=== PATIENT | female | born 1960 | race Caucasian/White ===

== ENCOUNTER 2017-10-17 12:13 | Observation (INO) | payer BC, OTHER ==
[~2017-10-17] VITALS: Ht 154.9 cm; Wt 64.8 kg
[~2017-10-17 12:13] MED LIST: ALBU1AER9 INH; ASPI81TA21 PO; ATOR-26 PO; COEN1CAP17 PO; IBUP-1105 PO; LISI-789 PO; METO25TA56 PO; MULT-506 PO; PRT/20 PO; SERT25TA PO; ST J300T2 PO
[2017-10-17] MEDS ORDERED: NITROGLYCERIN OINT 2% 1GM PACKET EXT STA (12:44)
--- NOTE | 2017-10-17 12:50 | EMERGENCY ROOM VISIT NOTE ---
History Report prepared by Mary: Leigh Butler Under the Supervision of: Dr. Bryn Haddad M.D. First contact with patient: 12:38 Chief Complaint: CHEST PAIN Stated Complaint: CHEST PAIN, NAUSEA Nursing Triage Summary: Pt presents with with c/o left sided chest pain into left shoulder, intermittent since 0300. SOB. Initially had lightheaded, nausea. Pt reports GA with stent placement x 1 ten years ago. Pt took NTG x 1 with relief, also took 324mg ASA. History of Present Illness The patient is a 56 year old female who presents to the Emergency Room with complaints of constant shortness of breath and chest pain beginning at 0300, about nine and a half hours ago. The pain radiates to the left shoulder. At its worst, the patient rates her pain as a 7/10. She took nitroglycerin with minimal relief. Presently, the patient reports some chest discomfort. The patient states her pain does not worsen with movement. She notes some nausea but denies any diaphoresis. The patient has a history of a heart attack. She states her pain does feel like the last time she had a a heart attack. The patient has stents in place. She reports she took an aspirin this morning. Source of History: patient Onset: 9 and a half hours ago Position: other (generalized) Symptom Intensity: 7/10 Quality: other (shortness of breath and chest pain) Timing: constant Associated Symptoms: + chest pain, + SOB, + nausea, No diaphoresis Review of Systems See HPI for pertinent positives & negatives. A total of 10 systems reviewed and were otherwise negative. Past Medical & Surgical Medical Problems: (1) Asthma (2) Cardiac catheterization (3) Coronary artery disease (4) Gastroesophageal reflux disease (5) Hyperlipidemia (6) Myocardial infarction (7) Stent in LAD Family History Heart disease High cholesterol Social History Smoking Status: Never Smoker Alcohol Use: none Drug Use: none Marital Status: Housing Status: lives with significant other Occupation Status: disabled Current/Historical Medications Scheduled Aspirin Enteric Coated (Ecotrin Or Generic), 81 MG PO DAILY Atorvastatin (Lipitor), 80 MG PO DAILY Coenzyme Q10 (Ubidecarenone) (Co Q 10), 100 MG PO DAILY Escitalopram Oxalate (Lexapro), 5 MG PO DAILY Lisinopril (Zestril), 2.5 MG PO DAILY Metoprolol Tartrate (Metoprolol Tartrate), 37.5 MG PO BID Multivitamin (Multivitamin), 1 TAB PO DAILY Pantoprazole Sodium (Protonix), 20 MG PO DAILY Katina's Wort ([place] Perf (St Mchugh Wort), 300 MG PO TID Scheduled PRN Albuterol Sulfate (Proair Respiclick), 1 PUFF INH Q4 PRN for SOB/Wheezing Ibuprofen (Ibuprofen), 400 MG PO Q6H PRN for Pain Allergies Coded Allergies: No Known Allergies (Verified , 10/17/17) Physical Exam Vital Signs Date Time Temp Pulse Resp B/P (MAP) Pulse Ox O2 Delivery O2 Flow Rate FiO2 10/17/17 15:14 55 16 122/59 99 Room Air 10/17/17 13:52 55 18 117/58 10/17/17 12:55 59 18 132/70 99 Room Air 10/17/17 12:47 59 10/17/17 12:18 36.7 69 18 159/82 99 Room Air Physical Exam GENERAL: Patient is in no acute distress. HEENT: No acute trauma, normocephalic atraumatic, mucous membranes moist, no nasal congestion, no scleral icterus. NECK: No stridor, no adenopathy, no meningismus, trachea is midline. LUNGS: Clear to auscultation bilaterally, no wheeze, no rhonchi, breath sounds equal. HEART: Without murmurs gallops or rubs, regular rate and rhythm. ABDOMEN: Soft, nontender, bowel sounds positive, no hernias, no peritonitis. CHEST: Nontender chest wall. EXTREMITIES: No cyanosis or edema, full range of motion of all the joints without pain or difficulty, no signs for acute trauma. NEUROLOGIC: Oriented x 3, no acute motor or sensory deficits, no focal weakness. SKIN: No rash, no jaundice, no diaphoresis. Medical Decision & Procedures ER Provider Diagnostic Interpretation: Radiology results as stated below per my review and radiologist interpretation: CHEST ONE VIEW PORTABLE FINDINGS: Lung volumes are normal. No pneumothorax or pleural effusion is noted. There is no consolidation or evidence of pulmonary edema. Cardiac size is within normal limits. The appearance of the chest is unchanged. IMPRESSION: No acute cardiopulmonary findings. Electronically signed by: Deric Hardwick M.D. Laboratory Results 10/17/17 12:57 10/17/17 12:40 Test 10/17/17 12:40 10/17/17 12:57 10/17/17 13:43 Anion Gap 8.0 mmol/L (3-11) Est Creatinine Clear Calc Drug Dose 74.1 ml/min Estimated GFR () 105.0 Estimated GFR (Non- 90.6 BUN/Creatinine Ratio 18.6 (10-20) Calcium Level 8.9 mg/dl (8.5-10.1) Total Bilirubin 0.4 mg/dl (0.2-1) Aspartate Amino Transf (AST/SGOT) 20 U/L (15-37) Alanine Aminotransferase (ALT/SGPT) 25 U/L (12-78) Alkaline Phosphatase 65 U/L (45-117) Troponin I < 0.015 ng/ml (0-0.045) Total Protein 7.0 gm/dl (6.4-8.2) Albumin 3.6 gm/dl (3.4-5.0) Globulin 3.4 gm/dl (2.5-4.0) Albumin/Globulin Ratio 1.0 (0.9-2) Red Blood Count 4.53 M/uL (4.2-5.4) Mean Corpuscular Volume 89.2 fL (80-100) Mean Corpuscular Hemoglobin 29.8 pg (25-34) Mean Corpuscular Hemoglobin Concent 33.4 g/dl (32-36) RDW Standard Deviation 44.9 fL (36.4-46.3) RDW Coefficient of Variation 13.7 % (11.5-14.5) Mean Platelet Volume 10.0 fL (7.4-10.4) Prothrombin Time 10.3 SECONDS (9.0-12.0) Prothromb Time International Ratio 1.0 (0.9-1.1) Activated Partial Thromboplast Time 26.6 SECONDS (21.0-31.0) Partial Thromboplastin Ratio 1.0 Laboratory results reviewed by me. Medications Administered Medications (Trade) Dose Ordered Sig/Maria A Route Start Time Stop Time Status Last Admin Dose Admin Nitroglycerin (Nitroglycerin 2% Oint) 1 inch NOW STAT EXT 10/17/17 12:44 10/17/17 12:46 DC 10/17/17 12:44 1 INCH ECG Indication: chest pain Rate (beats per minute): 63 Rhythm: normal sinus Findings: no acute ischemic change, no ectopy, other (old inferior infarct) Change: EKG interpreted by me. ED Course 1241: The patient was evaluated in room C4. A complete history and physical exam was performed. 1244: Ordered Nitroglycerin 1 inch EXT. 1409: I updated the patient on her test results. She is agreeable to the treatment plan. 1413: Discussed the patient's case with Dr. Lepe. The patient will be evaluated for further management. Medical Decision Differential diagnoses: angina, GA, pneumonia, pneumothorax, PE, aortic dissection, musculoskeletal pain. There is no leukocytosis or concerning anemia. No significant electrolyte abnormality or kidney failure. There is no hepatitis. EKG shows a normal sinus rhythm, no acute ischemia. Cardiac enzyme testing times one is not consistent with acute cardiac injury. Chest film does not show pneumonia, mediastinal widening or pneumothorax. The patient presents with left-sided chest pain, she has a cardiac history. She was given nitro paste, she is resting comfortably. No further aspirin given as she had taken some prior to arrival. The patient requires a further cardiac workup. I spoke with the patient and to case management. The on-call hospitalist was consulted. Medication Reconcilliation Current Medication List: was personally reviewed by me Blood Pressure Screening Patient's blood pressure: Elevated blood pressure Blood pressure disposition: Elevated BP felt to be situational Consults Time Called: 1410 Consulting Physician: Dr. Lepe Returned Call: 1413 Discussed the patient's case with Dr. Lepe. The patient will be evaluated for further management. Impression Primary Impression: Precordial chest pain Scribe Attestation The scribe's documentation has been prepared under my direction and personally reviewed by me in its entirety. I confirm that the note above accurately reflects all work, treatment, procedures, and medical decision making performed by me. Departure Information Dispostion Being Evaluated By Hospitalist Referrals RV. Peters MD (PCP) Patient Instructions [facility]
[2017-10-17 13:05] LABS: HEMATOCRIT 40.4 % (37-47); HEMOGLOBIN 13.5 g/dL (12.0-16.0); MEAN CELL VOLUME 89.2 fL (80-100); MEAN CORPUSCULAR HEMOGLOBIN 29.8 pg (25-34); MEAN CORPUSCULAR HGB CONC 33.4 g/dl (32-36); PLATELET COUNT 227 K/uL (130-400); RED CELL DISTRIBUTION WIDTH CV 13.7 % (11.5-14.5); RED CELL DISTRIBUTION WIDTH SD 44.9 fL (36.4-46.3); WHITE BLOOD COUNT 6.48 K/uL (4.8-10.8)
--- NOTE | 2017-10-17 13:10 | DIAGNOSTIC IMAGING REPORT ---
CHEST ONE VIEW PORTABLE CLINICAL HISTORY: Chest pain and nausea. COMPARISON STUDY: Chest radiograph February 10, 2016. FINDINGS: Lung volumes are normal. No pneumothorax or pleural effusion is noted. There is no consolidation or evidence of pulmonary edema. Cardiac size is within normal limits. The appearance of the chest is unchanged. IMPRESSION: No acute cardiopulmonary findings. Electronically signed by: Deric Hardwick M.D. 10/17/2017 1:09 PM Dictated Date/Time: 10/17/2017 1:08 PM
[2017-10-17 13:39] LABS: ALBUMIN 3.6 gm/dl (3.4-5.0); ALT/SGPT 25 U/L (12-78); AST/SGOT 20 U/L (15-37); BLOOD UREA NITROGEN 14 mg/dl (7-18); CALCIUM 8.9 mg/dl (8.5-10.1); CARBON DIOXIDE 24 mmol/L (21-32); CREATININE 0.74 mg/dl (0.60-1.20); GLUCOSE 93 mg/dl (70-99); POTASSIUM 4.4 mmol/L (3.5-5.1); SODIUM 138 mmol/L (136-145)
[2017-10-17 13:42] LABS: ALKALINE PHOSPHATASE 65 U/L (45-117)
[2017-10-17 14:10] LABS: PTT PATIENT 26.6 SECONDS (21.0-31.0)
[2017-10-17] MEDS ORDERED: ESCI1TAB6 PO (14:52)
[2017-10-17] MEDS ORDERED: ALBU18002 INH (14:52)
[2017-10-17] MEDS ORDERED: METO-720 PO (14:52)
[2017-10-17] MEDS ORDERED: ALBUTEROL HFA 8 GM INHALER INH PRN (15:15)
[2017-10-17] MEDS ORDERED: MoRPHine SULFATE 2 MG/ML CARP IV PRN (15:15)
[2017-10-17] MEDS ORDERED: NITROGLYCERIN 0.4 MG SL PER TAB CHARGE SL PRN (15:15)
[2017-10-17] MEDS ORDERED: MAGNESIUM HYDROXIDE SUSP 30 ML UDC PO PRN (15:15)
[2017-10-17] MEDS ORDERED: ALUMINUM/MAGNESIUM/SIMETH (MAALOX MAX) 30 ML UDC PO PRN (15:15)
[2017-10-17] MEDS ORDERED: ONDANSETRON INJ 2 MG/ML 2 ML VIAL IV PRN (15:15)
[2017-10-17] MEDS ORDERED: ACETAMINOPHEN 325 MG TAB PO PRN (15:15)
[2017-10-17] MEDS ORDERED: POLYETHYLENE (MIRALAX) 17 GM PACK PO PRN (15:15)
--- NOTE | 2017-10-17 15:31 | History and Physical ---
History & Physical Date & Time of Service: Oct 17, 2017 at 15:20 Chief Complaint: Chest Pain, Nausea Primary Care Physician: RV. Peters MD History of Present Illness Source: patient, family, clinic records, hospital records Patient is a pleasant 56 y/o female, with PMHx of CAD s/p WI w/ cardiac stenting in 2006, HTN, HLD, h/o v.fib arrest w/ past WI, asthma, anxiety, and GERD, who presented to the ED because of L-sided chest pain that woke her from her sleep at 0300. She described pain as a pressure/burring sensation. Associated nausea and SOB. Pain radiates to L arm and jaw region. She denies any alleviating/aggravating factors. She took a nitro with onset in symptoms with no relief. She was given Nitro paste in ED. She notes pain is still present but improved. Symptoms are similar to past presentation of WI. She follows w/ Dr. Crews. She notes a h/o of GERD. She takes Protonix PRN. She denies any acute worsening symptoms recently. She has never had an EGD before. Patient denies any fever, chills, sweats, lightheadedness, dizziness, vision changes, palpitations, edema, wheezing, cough, abdominal pain, vomiting, diarrhea, urinary symptoms, melena, numbness/tingling, weakness, muscle/joint pain, anxiety/depression, active bleeding, or new skin discoloration/changes. Past Medical/Surgical History Medical/Surgical history: CAD s/p [place] w/ cardiac stenting in 2006 HTN HLD h/o v.fib arrest w/ past WI asthma anxiety GERD s/p hernia repair Family History Heart disease High cholesterol Social History Smoking Status: Never Smoker Alcohol Use: none Drug Use: none Marital Status: Housing status: lives with family Occupational Status: disabled Immunizations History of Influenza Vaccine: No History of Tetanus Vaccine?: Yes Tetanus Immunization Date: Aug 15, 1997 History of Pneumococcal: Yes Pneumococcal Date: Aug 15, 1997 History of Hepatitis B Vaccine: Yes Hepatitis Immunization Date: Aug 15, 1997 Multi-Drug Resistant Organisms History of MDRO: No Allergies Coded Allergies: No Known Allergies (Verified , 10/17/17) Home Medications Scheduled Aspirin Enteric Coated (Ecotrin Or Generic), 81 MG PO DAILY Atorvastatin (Lipitor), 80 MG PO DAILY Coenzyme Q10 (Ubidecarenone) (Co Q 10), 100 MG PO DAILY Escitalopram Oxalate (Lexapro), 5 MG PO DAILY Lisinopril (Zestril), 2.5 MG PO DAILY Metoprolol Tartrate (Metoprolol Tartrate), 37.5 MG PO BID Multivitamin (Multivitamin), 1 TAB PO DAILY Pantoprazole Sodium (Protonix), 20 MG PO DAILY Katina's Wort ([place] Perf (St Mchugh Wort), 300 MG PO TID Scheduled PRN Albuterol Sulfate (Proair Respiclick), 1 PUFF INH Q4 PRN for SOB/Wheezing Ibuprofen (Ibuprofen), 400 MG PO Q6H PRN for Pain Physical Exam Vital Signs Date Time Temp Pulse Resp B/P (MAP) Pulse Ox O2 Delivery O2 Flow Rate FiO2 10/17/17 15:14 55 16 122/59 99 Room Air 10/17/17 13:52 55 18 117/58 10/17/17 12:55 59 18 132/70 99 Room Air 10/17/17 12:47 59 10/17/17 12:18 36.7 69 18 159/82 99 Room Air General Appearance: WD/WN, no apparent distress Head: normocephalic, atraumatic Eyes: normal inspection, PERRL ENT: hearing grossly normal Neck: supple Respiratory/Chest: lungs clear, normal breath sounds, no respiratory distress, no accessory muscle use Cardiovascular: regular rate, rhythm Abdomen/GI: normal bowel sounds, non tender, soft Back: normal inspection Extremities/Musculoskelatal: no calf tenderness, no pedal edema Neurologic/Psych: alert, normal mood/affect, oriented x 3 Skin: normal color, warm/dry, no rash Diagnostics Laboratory Results Results Past 24 Hours Test 10/17/17 12:40 10/17/17 12:57 10/17/17 13:43 Range/Units Sodium Level 138 136-145 mmol/L Potassium Level 4.4 3.5-5.1 mmol/L Chloride Level 106 98-107 mmol/L Carbon Dioxide Level 24 21-32 mmol/L Anion Gap 8.0 3-11 mmol/L Blood Urea Nitrogen 14 7-18 mg/dl Creatinine 0.74 0.60-1.20 mg/dl Est Creatinine Clear Calc Drug Dose 74.1 ml/min Estimated GFR () 105.0 Estimated GFR (Non- 90.6 BUN/Creatinine Ratio 18.6 10-20 Random Glucose 93 70-99 mg/dl Calcium Level 8.9 8.5-10.1 mg/dl Total Bilirubin 0.4 0.2-1 mg/dl Aspartate Amino Transf (AST/SGOT) 20 15-37 U/L Alanine Aminotransferase (ALT/SGPT) 25 12-78 U/L Alkaline Phosphatase 65 45-117 U/L Troponin I < 0.015 0-0.045 ng/ml Total Protein 7.0 6.4-8.2 gm/dl Albumin 3.6 3.4-5.0 gm/dl Globulin 3.4 2.5-4.0 gm/dl Albumin/Globulin Ratio 1.0 0.9-2 White Blood Count 6.48 4.8-10.8 K/uL Red Blood Count 4.53 4.2-5.4 M/uL Hemoglobin 13.5 12.0-16.0 g/dL Hematocrit 40.4 37-47 % Mean Corpuscular Volume 89.2 80-100 fL Mean Corpuscular Hemoglobin 29.8 25-34 pg Mean Corpuscular Hemoglobin Concent 33.4 32-36 g/dl RDW Standard Deviation 44.9 36.4-46.3 fL RDW Coefficient of Variation 13.7 11.5-14.5 % Platelet Count 227 130-400 K/uL Mean Platelet Volume 10.0 7.4-10.4 fL Prothrombin Time 10.3 9.0-12.0 SECONDS Prothromb Time International Ratio 1.0 0.9-1.1 Activated Partial Thromboplast Time 26.6 21.0-31.0 SECONDS Partial Thromboplastin Ratio 1.0 Diagnostic Radiology CHEST ONE VIEW PORTABLE CLINICAL HISTORY: Chest pain and nausea. COMPARISON STUDY: Chest radiograph February 10, 2016. FINDINGS: Lung volumes are normal. No pneumothorax or pleural effusion is noted. There is no consolidation or evidence of pulmonary edema. Cardiac size is within normal limits. The appearance of the chest is unchanged. IMPRESSION: No acute cardiopulmonary findings. Electronically signed by: Deric Hardwick M.D. 10/17/2017 1:09 PM Dictated Date/Time: 10/17/2017 1:08 PM The status of this report is Signed. Draft = Not yet reviewed or approved by Radiologist. Signed = Reviewed and approved by Radiologist. EKG PUJA CROWDER ID:[id number] 17-OCT-2017 12:24:07 [facility] Normal sinus rhythm Nonspecific ST abnormality Abnormal ECG When compared with ECG of 10-FEB-2016 05:20, No significant change was found Confirmed by Jesús Avery ([id number]) on 10/17/2017 2:13:22 PM 25mm/s 10mm/mV 150Hz 8.0 SP2 12SL 241 CAYLA: 0 Referred by: Confirmed By: Jesús Avery Vent. rate 63 BPM MO interval 166 ms QRS duration 84 ms QT/QTc 420/429 ms P-R-T axes 58 68 87 1960 (56 yr) Female 1lb Room:D8 Loc:15 Sewing Trimmer:HALEY NOBLE Test ind: Impression Assessment and Plan Patient is a pleasant 56 y/o female, with PMHx of CAD s/p WI w/ cardiac stenting in 2006, HTN, HLD, h/o v.fib arrest w/ past WI, asthma, anxiety, and GERD, who presented to the ED because of L-sided chest pain that woke her from her sleep at 0300. Chest pain- ACS r/o: - Admit to tele for cardiac monitoring - O2 protocol - Trend cardiac enzymes- initial enzymes negative - EKG w/out acute ischemic changes; follow QAM and PRN w/ chest pain - Nitro and IV Morphine PRN - NPO after midnight for stress ECHO in AM if cardiac markers negative - Consult cardiology, appreciate recommendations CAD s/p WI w/ cardiac stenting in 2006, HTN, HLD, h/o v.fib arrest w/ past WI- follows w/ Dr. Crews: - Continue ASA 81 mg daily, Lipitor 80 mg daily, Lisinopril 2.5 mg daily, Metoprolol 37.5 mg BID Anxiety: Continue Lexapro Asthma w/out acute exacerbation: Continue home inhalers GERD: Protonix daily DVT prophylaxis: Heparin SQ BID Code status: LEVEL I, FULL Dispo: From home, lives w/ - no discharge needs anticipated Level of Care Telemetry Resuscitation Status FULL RESUSCITATION VTE Prophylaxis VTE Risk Assessment Done? Y/N: Yes Risk Level: Moderate Given or contraindicated: Unfractionated heparin SQ, T.E.D. Stockings, SCD's Note Attending Admit Note & Attestation: Pt seen/examined, chart reviewed, care plan d/w STAR Harrison. I agree w/ the patel components of her documentation. 56yo female with CAD s/p WI w/ cardiac stenting in 2006, HTN, HLD, h/o v.fib arrest w/ past WI, asthma, anxiety, and GERD - last cardiac cath in 2016 showed patent LAD stent and patent [place] L Cx / RCA - presenting with chest pain and mild dyspnea. W/u thus far negative for ACS. By the time of my assessment chest pain was just about resolved. Symptoms similar to her initial WI event in 2006. No recent travel or illness. Denies GI symptoms. Denies pleuritic pain. PMH, PSH, allergies, meds, sochx, famhx, ros - reviewed VSS no fever gen - NAD neck - no JVD heart - RRR, s1, s2, no murmur lungs - CTA b/l abd - soft, NT chest - no reproducible chest wall pain ext - no edema, no assymetric calves labs - troponin neg EKG w/o ST changes cxr - no infiltrates A/P: Chest pain/dyspnea in 56yo female with h/o CAD. Pain now resolved s/p nitroglycerin in the ER. Tele, serial troponins, nitro SL prn, lipids in AM (had high LDL on last check in Jul 2017). NPO after MN in the event cardiology wishes to pursue testing tomorrow. Formal cardiology consult with Dr. Crews requested. Symptoms/history not suggestive of VTE, pericarditis, GERD, asthma, or CHF. Place on observation status. Nick Sumner MD
[2017-10-17] MEDS ORDERED: IV FLUIDS COMPLETED PRN (16:15)
[2017-10-17 16:32] VITALS: BP 111/66; PULSE 64; TEMP 36.4; O2SAT 95
[2017-10-17 16:46] VITALS: BP 111/66; PULSE 64; TEMP 36.4; O2SAT 95; Ht 154.9 cm; Wt 64.8 kg
--- NOTE | 2017-10-17 18:08 | Cardiology Consultation ---
Cardiology Consultation Date of Consultation: Oct 17, 2017. Requesting Physician: Burak Reason for Consultation: Chest Pain Pt evaluation today including: conversation w/ patient, physical exam, chart review, lab review, review of studies, review of inpatient medication list, conversation w/ attending History of Present Illness The patient is a 56-year-old woman with history of coronary artery disease having suffered a myocardial infarction in 2006. This morning at approximately 4 :00 a.m. she woke with symptoms chest burning. This involved left precordium as well as left arm and some of the left neck. She had some associated dyspnea. There is no pleuritic pain. There was some associated nausea but no associated diaphoresis. Patient felt the symptoms were similar to her myocardial infarction 2007 with the exception of no diaphoresis this time. The symptoms waxed and waned in severity over the course of several hours. The patient did take 1 single sublingual nitroglycerin at home as well as her usual cardiac medications was include a beta-rosa and an HARDEEP-inhibitor. Due to the persistent nature of her symptoms she eventually sought medical attention at [facility]. She states that her symptoms eventually resolved around noon today. Unclear if this was related to application of some nitroglycerin paste. Patient states that she has symptoms of this nature quite frequently. She states she often awakens with the symptoms perhaps 2-3 times per week. This been present now for several years. In general the symptoms resolve fairly rapidly and are not often associated with nausea. Patient also states that she has occasional episodes of chest pressure. The seem to occur when she is exercising more vigorously or at ascending hills on her walk. She generally rests and the symptoms resolved. This is not changed in character or severity in several years. At the time of this interview she claims to be feeling well. Her symptoms have resolved entirely. She no longer has nausea was able to tolerate her evening meal without chest or abdominal discomfort. Past Medical/Surgical History Coronary artery disease Myocardial infarction in 2006 resulting in stent to the LAD Repeat catheterization 2015 demonstrated patent LAD stent Cardiac arrest at the time of her initial [place] Ischemic cardiomyopathy Gastroesophageal reflux disease Hyperlipidemia Hypertension Depression Asthma Past surgical history Inguinal hernia peer Family History Heart disease High cholesterol Noncontributory given her current diagnosis of coronary artery disease Social History Smoking Status: Never Smoker History of Alcohol Use: No Previously employed in the [employer] industry in [facility] [place]. Now disabled after her myocardial infarction Review of Systems No recent constitutional symptoms such as fevers or chills. She does endorse symptoms of palpitations. These are fairly frequent most noticeable at nighttime. They are manifest primarily by a "pounding " in her chest. She generally does not have dizziness or lightheadedness. She has not suffered a syncopal episode. She denies any orthopnea or paroxysmal nocturnal dyspnea. She generally sleeps flat at night. She has not noticed any lower extremity edema. All Other Systems: Reviewed and Negative Allergies Coded Allergies: No Known Allergies (Verified , 10/17/17) Medications Current Inpatient Medications Medications (Trade) Dose Ordered Sig/Maria A Route Start Time Stop Time Status Last Admin Dose Admin Heparin Sodium (Porcine) (Heparin Sq 5000 Unit/0.5ml) 5,000 unit Q12 SQ 10/17/17 21:00 11/16/17 20:59 Acetaminophen (Tylenol Tab) 650 mg Q4H PRN PO 10/17/17 15:15 11/16/17 15:14 Al Hydrox/Mg Hydrox/Simethicone (Maalox Max Susp) 15 ml Q4H PRN PO 10/17/17 15:15 11/16/17 15:14 Magnesium Hydroxide (Milk Of Magnesia Susp) 30 ml Q12H PRN PO 10/17/17 15:15 11/16/17 15:14 Ondansetron HCl (Zofran Inj) 4 mg Q6H PRN IV 10/17/17 15:15 11/16/17 15:14 Nitroglycerin (Nitrostat Tab) 0.4 mg UD PRN SL 10/17/17 15:15 11/16/17 15:14 Morphine Sulfate (MoRPHine SULFATE INJ) 2 mg Q30M PRN IV 10/17/17 15:15 10/31/17 15:14 Polyethylene (Miralax Powder Packet) 17 gm DAILY PRN PO 10/17/17 15:15 11/16/17 15:14 Aspirin (Ecotrin Tab) 81 mg DAILY PO 10/18/17 09:00 11/17/17 08:59 Atorvastatin Calcium (Lipitor Tab) 80 mg DAILY PO 10/18/17 09:00 11/17/17 08:59 Escitalopram Oxalate (Lexapro Tab) 5 mg DAILY PO 10/18/17 09:00 3/1/18 08:59 Lisinopril (Zestril Tab) 2.5 mg DAILY PO 10/18/17 09:00 11/17/17 08:59 Albuterol (Ventolin Hfa Inhaler) 1 puffs Q4 PRN INH 10/17/17 15:15 11/16/17 15:14 Metoprolol Tartrate (Lopressor Tab) 37.5 mg BID PO 10/17/17 21:00 11/16/17 20:59 Pantoprazole Sodium (Protonix Tab) 40 mg QAM PO 10/18/17 09:00 11/17/17 08:59 Miscellaneous (Iv Fluids Completed) 1 ea PRN PRN N/A 10/17/17 16:15 10/17/18 16:14 Physical Exam Vital Signs Past 12 Hours Date Time Temp Pulse Resp B/P (MAP) Pulse Ox O2 Delivery O2 Flow Rate FiO2 10/17/17 16:46 36.4 64 18 111/66 95 Room Air 10/17/17 16:32 36.4 64 18 111/66 (81) 95 Room Air 10/17/17 15:14 55 16 122/59 99 Room Air 10/17/17 13:52 55 18 117/58 10/17/17 12:55 59 18 132/70 99 Room Air 10/17/17 12:47 59 10/17/17 12:18 36.7 69 18 159/82 99 Room Air She is alert and oriented x3. Mood affect appear normal. She answered all questions appropriately. HEENT: Sclerae are anicteric. Pupils are equal and reactive to light and accommodation. Extraocular movements were intact. Neuro: Cranial nerves intact Neck: Examination of the submandibular region did not reveal any significant lymphadenopathy. Carotids are palpable bilaterally and free of bruits on auscultation. There was no evidence of jugular venous distention. The thyroid was not enlarged. Lungs: Lungs are clear to auscultation bilaterally. There are no rales wheezes or rhonchi. She has normal respiratory effort without use of accessory muscles. There is normal pulmonary excursion. Cardiac: The rhythm was regular. S1 and S2 were normal. There are no murmurs on examination. The PMI was not markedly displaced on palpation. Abdomen: The abdomen was soft and nontender. Extremities: Patient has bilateral radial pulses that are equal in intensity. There is no evidence cyanosis or clubbing. There was no evidence of significant peripheral edema bilaterally. Skin: There are no rashes noted on examination today. Data Laboratory Results: Last 24 Hours Test 10/17/17 12:40 10/17/17 12:57 10/17/17 13:43 Sodium Level 138 mmol/L Potassium Level 4.4 mmol/L Chloride Level 106 mmol/L Carbon Dioxide Level 24 mmol/L Anion Gap 8.0 mmol/L Blood Urea Nitrogen 14 mg/dl Creatinine 0.74 mg/dl Est Creatinine Clear Calc Drug Dose 74.1 ml/min Estimated GFR () 105.0 Estimated GFR (Non- 90.6 BUN/Creatinine Ratio 18.6 Random Glucose 93 mg/dl Calcium Level 8.9 mg/dl Total Bilirubin 0.4 mg/dl Aspartate Amino Transf (AST/SGOT) 20 U/L Alanine Aminotransferase (ALT/SGPT) 25 U/L Alkaline Phosphatase 65 U/L Troponin I < 0.015 ng/ml Total Protein 7.0 gm/dl Albumin 3.6 gm/dl Globulin 3.4 gm/dl Albumin/Globulin Ratio 1.0 White Blood Count 6.48 K/uL Red Blood Count 4.53 M/uL Hemoglobin 13.5 g/dL Hematocrit 40.4 % Mean Corpuscular Volume 89.2 fL Mean Corpuscular Hemoglobin 29.8 pg Mean Corpuscular Hemoglobin Concent 33.4 g/dl RDW Standard Deviation 44.9 fL RDW Coefficient of Variation 13.7 % Platelet Count 227 K/uL Mean Platelet Volume 10.0 fL Prothrombin Time 10.3 SECONDS Prothromb Time International Ratio 1.0 Activated Partial Thromboplast Time 26.6 SECONDS Partial Thromboplastin Ratio 1.0 Imaging: Chest x-ray did not demonstrate any acute cardiopulmonary abnormality EKG: Normal sinus rhythm without ischemic changes or evidence of old myocardial infarction Telemetry reviewed: Normal sinus rhythm Echocardiogram performed 02/21/2015: Ejection fraction 45-50%. Apical anterior hypokinesis. [id number]-[id number] mitral regurgitation Cardiac catheterization performed 02/10/2016 response to would abnormal stress test: No evidence of significant disease with patent proximal LAD stent. Assessment & Plan 1. Chest pain: While the patient's symptoms remind her of her prior myocardial infarction, the fact that she has had a very extended course of chest discomfort without elevation in her cardiac biomarkers suggest this is not cardiac. She also has a normal EKG at the time of presentation. There is no objective evidence of myocardial ischemia despite prolonged symptoms. Her symptoms sound more classic for gastroesophageal reflux disease. However, she does take pantoprazole on daily basis. The symptoms are fairly longstanding in nature and today's episode was simply more prolonged and involved some nausea. Based on the absence of objective evidence of ischemia I do not think the current symptoms warrant any additional cardiac evaluation. 2. Exertional chest tightness: The patient did however endorse some symptoms of chest tightness with exertion. This would be more consistent with angina. However, the symptoms are longstanding in nature and not changed recently. Two thousand sixteen she underwent coronary angiography for similar symptoms and this did not demonstrate any evidence of obstructive disease. 3. Coronary artery disease: He is on aggressive regimen for secondary prevention to include daily aspirin, high-dose atorvastatin and beta blockade 4. Ischemic cardiomyopathy: She appears to be well compensated currently. More recent stress echocardiogram suggested near normal LV systolic function with an estimated ejection fraction of 50-55%. No evidence of pulmonary edema by exam or history. Chest x-ray was also normal. She will continue on her current regimen which includes a beta-rosa and HARDEEP-inhibitor. 5. Valvular heart disease: Patient was noted to have [id number] mitral regurgitation in 2015. [place] to be mild on the stress echocardiogram performed in 2016. This can be followed over time
[2017-10-17 20:00] VITALS: O2SAT 95
[2017-10-17 20:32] VITALS: BP 102/64; PULSE 60; TEMP 36.5; O2SAT 95
[2017-10-17] MEDS: METOPROLOL TARTRATE 25 MG TAB PO SCH (20:34)
[2017-10-17] MEDS: HEPARIN SOD 5000 UNIT/0.5 ML CARP SQ SCH (20:38)
[2017-10-17 21:21] LABS: CKMB 0.7 ng/ml (0.5-3.6)
[2017-10-17 22:40] VITALS: BP 91/49; PULSE 57; TEMP 36.5; O2SAT 95
[2017-10-18 03:55] VITALS: BP 107/65; PULSE 59; TEMP 36.5; O2SAT 95
[2017-10-18 05:17] LABS: CHOLESTEROL 193 mg/dl (0-200); CKMB 0.8 ng/ml (0.5-3.6); LDL CHOLESTEROL CALCULATED 124 mg/dl
[2017-10-18 08:19] VITALS: BP 131/85; PULSE 69; TEMP 36.7; O2SAT 97
[2017-10-18 08:22] VITALS: O2SAT 97
[2017-10-18] MEDS: METOPROLOL TARTRATE 25 MG TAB PO SCH (08:45)
[2017-10-18] MEDS: HEPARIN SOD 5000 UNIT/0.5 ML CARP SQ SCH (08:47)
[2017-10-18] MEDS ORDERED: ATORVASTATIN 40 MG TAB PO SCH (09:00)
[2017-10-18] MEDS ORDERED: ESCITALOPRAM OXALATE 10 MG TAB PO SCH (09:00)
[2017-10-18] MEDS ORDERED: PANTOprazole SOD 40 MG TAB PO SCH (09:00)
[2017-10-18] MEDS ORDERED: ASPIRIN 81 MG ECTAB PO SCH (09:00)
[2017-10-18] MEDS ORDERED: LISINOPRIL 2.5 MG TAB PO SCH (09:00)
[2017-10-18] MEDS ORDERED: PANT40TA2 PO (10:23)
--- NOTE | 2017-10-18 10:27 | Discharge Summary ---
Discharge Summary Date of Service Oct 18, 2017. Discharge Summary Admission Date: Oct 17, 2017 at 15:20 Discharge Date: Oct 18, 2017 Discharge Disposition: Home Principal Diagnosis: Chest pain-non cardiac Problems/Secondary Diagnoses: Asthma Coronary artery disease with stable angina, h/o LAD stent Gastroesophageal reflux disease Hyperlipidemia Chronic systolic CHF HTN H/o ventricular fibrillation arrest w/ past NC Anxiety disorder Mild-moderate mitral regurgitation Immunizations: Have You Had Influenza Vaccine: No History of Tetanus Vaccine?: Yes Tetanus Immunization Date: Aug 15, 1997 History of Pneumococcal: Yes Pneumococcal Date: Aug 15, 1997 History of Hepatitis B Vaccine: Yes Hepatitis Immunization Date: Aug 15, 1997 Procedures: Chest 1 view portable 10/17/17 FINDINGS: Lung volumes are normal. No pneumothorax or pleural effusion is noted. There is no consolidation or evidence of pulmonary edema. Cardiac size is within normal limits. The appearance of the chest is unchanged. IMPRESSION: No acute cardiopulmonary findings. Consultations: Cardiology Medication Reconciliation New Medications: Ranitidine HCl (Ranitidine HCl) 150 Mg Tab 150 MG PO HS for 30 Days, #30 TAB Changed Medications: Pantoprazole (Pantoprazole Sodium) 40 Mg Tab 40 MG PO DAILY for 30 Days, #30 TBS (Changed from: Pantoprazole Sodium (Protonix ) 20 Mg Tab 20 Mg PO DAILY) Continued Medications: Albuterol Sulfate (Proair Respiclick) 108 Mcg/Act Aer 1 PUFF INH Q4 PRN for SOB/Wheezing Aspirin Enteric Coated (Ecotrin Or Generic) 81 Mg Tab 81 MG PO DAILY, TAB Atorvastatin (Lipitor) 80 Mg Tab 80 MG PO DAILY, TAB Coenzyme Q10 (Ubidecarenone) (Co Q 10) 100 Mg Cap 100 MG PO DAILY Escitalopram Oxalate (Lexapro) 5 Mg Tab 5 MG PO DAILY Lisinopril (Zestril) 2.5 Mg Tab 2.5 MG PO DAILY Metoprolol Tartrate (Metoprolol Tartrate) 37.5 Mg Tab 37.5 MG PO BID Multivitamin (Multivitamin) Tab 1 TAB PO DAILY, TAB Katina's Wort ([place] Perf (St Mchugh Wort) 300 Mg Tab 300 MG PO TID Discontinued Medications: Ibuprofen (Ibuprofen) 200 Mg Tab 400 MG PO Q6H PRN for Pain Discharge Exam The patient was seen and examined this morning. Pt reports doing well this morning. She denies cp, sob, abd pain, n/v/d/c. She was seen by Dr. Avery last evening and her troponins are negative x 3. No overnight events on telemetry. EKG is without acute abnormality or ST wave inversions. The patient tolerated breakfast without any difficulty, she has been ambulating about the room without chest pain or shortness of breath, no difficulty. Patient is from home and lives with her . ROS Constitutional: No fever, sweats or chills Eyes: No diplopia, no worsening or blurred vision ENT: normal hearing, no trouble swallowing Respiratory: No cough, sputum, dyspnea at rest or on exertion Cardiovascular: No chest pain, tightness or palpitations Abdomen: No pain, nausea, vomiting, diarrhea or constipation Musculoskeletal: No joint pain, calf pain, swelling Neurologic: No weakness, numbness/tingling, or balance problems Psychiatric: No anxiety or depression Skin: No rash or itch PE: General: awake, alert, no apparent distress Head: Normocephalic, atraumatic ENT: PERRL, EOMI, no pharyngeal exudate, mucous membranes moist Chest: Clear to auscultation, on room air, no adventitious breath sounds Cardiac: Chest nontender to palpation, Regular rate and rhythm, no murmur, no JVD, normal peripheral pulses, good capillary refill Abdominal: NABS x 4 quadrants, soft, nontender to palpation, no rebound, guarding or tenderness Extremities: Normal inspection, no peripheral edema or erythema, calfs nontender to palpation Psych: Normal mood and affect Neuro: AAO x 3, strength intact bilaterally and related 5/5, no motor deficits, speech is clear, no peripheral sensory deficits Hospital Course Total Time Spent: Greater than 30 minutes Patient is a pleasant 56 y/o female, with PMHx of CAD s/p NC w/ cardiac stenting in 2006, HTN, HLD, h/o v.fib arrest w/ past NC, asthma, anxiety, and GERD, who presented to the ED because of L-sided chest pain that woke her from her sleep at 0300. Chest pain- ACS r/o: - Admit to tele for cardiac monitoring- without overnight events -Cardiac enzymes were trended and were negative 3 - EKG w/out acute ischemic changes - Nitro tabs prn were not needed during admission nor was IV Morphine PRN except in the ER. -Dr. Avery has seen the patient, no further testing required at this time. - appreciate recommendations CAD s/p NC w/ cardiac stenting in 2006, HTN, HLD, h/o v.fib arrest w/ past NC- follows w/ Dr. Crews: - Continue ASA 81 mg daily, Lipitor 80 mg daily, Lisinopril 2.5 mg daily, Metoprolol 37.5 mg BID Anxiety: Continue Lexapro Asthma w/out acute exacerbation: Continue home inhalers GERD: Protonix daily DVT prophylaxis: Heparin SQ BID Code status: LEVEL I, FULL Dispo: From home, lives w/ -discharged home today. Discharge Instructions Please refer to the electronic Patient Visit Report (Discharge Instructions) for additional information. Follow-Up Follow up with your Primary Care Provider within 1 week. Additional Copies To RV. Peters MD Reviewed: Pt Seen/Exam by Me History Physician Livestock Caretaker Supervision Note: I interviewed and examined the patient. Discussed with STAR Michelle and agree with findings and plan as documented in the note. Any exceptions or clarifications are listed here: Pt has not had any further chest pain since admission. No significant events on telemetry. She reports this pain has been coming and going, at rest, sometimes lasting hours. This occurrence happened while she was lying flat sleeping. Vitals reviewed NAD RRR no mgr CTAB no wcr Abd +BS soft NT ND Ext no edema 56 yo female with a h/o CAD s/p LAD stent and V-fib arrest, chronic systolic CHF , HTN, HL, mitral regurgitation, asthma, GERD, and anxiety d/o, here with atypical left sided chest pain. Ruled out for ACS. Cardiology assessed and does not feel any further cardiac testing is necessary at this time. Symptoms lasted hours and troponins serially negative. No evidence of acute CHF. Stable for discharge to home. Trial of Zantac 150mg po qhs in addition to her usual AM Protonix to see if helps with symptoms, could be GERD. F/u with PCP Documented By: Camille Oh
--- NOTE | 2017-10-18 10:27 | Discharge Instructions ---
Discharge Instructions Date of Service Oct 18, 2017. Admission Reason for Admission: Chest Pain Discharge Discharge Diagnosis / Problem: Chest pain due to indigestion Discharge Goals Goal(s): Decrease discomfort, Improve function, Increase independence, Improve disease control Activity Recommendations Activity Limitations: resume your previous activity Lifting Limitations: no more than 25 pounds, gradually increase as tolerated Exercise/Sports Limitations: rest today, gradually increase as tolerated May Resume Sexual Activity: when tolerated Shower/Bathe: no limitations Driving or Machine Use: no limitations . Instructions / Follow-Up Instructions / Follow-Up You were admitted to [facility] with chest pain and diagnosed with chest pain due to indigestion. During your stay here you were treated with supportive care, your cardiac biomarkers were negative, and EKG was without acute changes. Cardiology saw you and determined that this was not cardiac chest pain in nature. Medications: Continue taking your medications as above. Pantoprazole has been increased to 40 mg daily for indigestion, and new prescription has been sent to your pharmacy. Appointments: Follow up with your Primary Care Provider within 1 week. An appointment has been requested for you. Current Hospital Diet Patient's current hospital diet: AHA Diet (Heart Healthy) Discharge Diet Recommended Diet: AHA Diet (Heart Healthy) Pending Studies Studies pending at discharge: no Laboratory Results Lipid Panel Test 10/18/17 04:16 Range/Units Triglycerides Level 145 0-150 mg/dl Cholesterol Level 193 0-200 mg/dl HDL Cholesterol 40 mg/dl Cholesterol/HDL Ratio 4.8 LDL Cholesterol, Calculated 124 mg/dl Medical Emergencies . Who to Call and When: Medical Emergencies: If at any time you feel your situation is an emergency, please call 911 immediately. . Non-Emergent Contact Non-Emergency issues call your: Primary Care Provider Call Non-Emergent contact if: you have a fever, temperature is above 100.5, your pain is not controlled, your pain is worsening, you have any medication questions other concerns with your health. Call 911 or go directly to the Emergency Department if you experience any of the following: Chest pain, chest tightness, shortness of breath, abdominal pain , lightheadedness, dizziness, gastrointestinal bleeding, or have any other concerns regarding your health. . Past History Medical & Surgical History: (1) Chest pain (2) Gastroesophageal reflux disease . "Provider Documentation" section prepared by Dorie Michelle. . VTE Core Measure Inpt VTE Proph given/why not?: Unfractionated heparin SQ, T.E.Corrie. Von, SCD 's
[2017-10-18 11:08] VITALS: BP 131/85; PULSE 69; TEMP 36.7; O2SAT 97
[2017-10-18] MEDS ORDERED: ZNT150 PO (11:15)
== END 2017-10-18 11:45 | disposition home or self-care (01) ==
LOC: C.EDB 12:14 → C.MED 15:20 → ENRESERV 16:05 → CANRESERV 16:05 → ENRESERV 16:06
PROVIDERS: ADMIT Internal Medicine; ATTEND Internal Medicine
DX: R07.2 Precordial pain (principal); J45.909 Unspecified asthma, uncomplicated; I25.10 Atherosclerotic heart disease of native coronary artery without angina pectoris; K21.9 Gastro-esophageal reflux disease without esophagitis; E78.5 Hyperlipidemia, unspecified; I25.2 Old myocardial infarction; Z95.818 Presence of other cardiac implants and grafts; Z82.49 Family history of ischemic heart disease and other diseases of the circulatory system; Z79.82 Long term (current) use of aspirin; F41.9 Anxiety disorder, unspecified

== ENCOUNTER → 2017-12-23 | Outpatient (CLI) | payer BC, OTHER ==
[~2017-12-23] MED LIST changes: +ALBU18002 INH; -ALBU1AER9 INH; +ESCI1TAB6 PO; -IBUP-1105 PO; +METO-720 PO; -METO25TA56 PO; +PANT40TA2 PO; -PRT/20 PO; -SERT25TA PO; +ZNT150 PO
--- NOTE | 2017-12-23 14:37 | DIAGNOSTIC IMAGING REPORT ---
L HIP UNILATERAL 2 VIEWS CLINICAL HISTORY: Left hip pain. COMPARISON: None FINDINGS: Alignment of the left hip is anatomic. No fracture or suspicious lesion is identified. Joint space is preserved. There is mild osteophytosis of the left hip. Irregularity of the greater tuberosity is due to muscular insertion. IMPRESSION: 1. No acute fracture. 2. Preserved left hip joint space with mild osteophytosis. Electronically signed by: Deric Hardwick M.D. 12/23/2017 2:35 PM Dictated Date/Time: 12/23/2017 2:34 PM
== END | disposition home or self-care (01) ==
LOC: C.RAD1850 14:16
PROVIDERS: ATTEND Internal Medicine
DX: I10 Essential (primary) hypertension (principal); M25.552 Pain in left hip

== ENCOUNTER 2018-09-21 09:26 | Observation (INO) ==
[2018-09-21] MEDS ORDERED: NITROGLYCERIN 2% OINTMENT 30GM TUBE EXT STA (09:52)
[2018-09-21 10:02] LABS: Basophils % (auto) 1.8 %; Eosinophils # (auto) 0.09 K/uL (0-0.5); Eosinophils % (auto) 1.6 %; Hematocrit (blood only) 41.2 % (37-47); Hemoglobin 13.9 g/dL (12.0-16.0); Immature Granulocytes # (auto) 0.01 K/uL (0.00-0.02); Immature Granulocytes % (auto) 0.2 %; Lymphocytes # (auto) 1.97 K/uL (1.2-3.4); Lymphocytes % (auto) 35.7 %; Mean Corpuscular Hgb Conc 33.7 g/dL (32-36); Mean Corpuscular Volume 90.2 fL (80-100); Mean Platelet Volume 10.3 fL (7.4-10.4); Monocytes # (auto) 0.29 K/uL (0.11-0.59); Monocytes % (auto) 5.3 %; Neutrophils # (auto) 3.06 K/uL (1.4-6.5); Neutrophils % (auto) 55.4 %; Platelet Count 243 K/uL (130-400); RDW Coefficient of Variation 14.1 % (11.5-14.5); RDW Standard Deviation 46.2 fL (36.4-46.3); Red Blood Count 4.57 M/uL (4.2-5.4); White Blood Count 5.52 K/uL (4.8-10.8)
[2018-09-21 10:10] LABS: Partial Thromboplastin Time 26.4 Seconds (21.0-31.0)
--- NOTE | 2018-09-21 10:18 | XRay Report ---
XR chest 1V portable CLINICAL HISTORY: Chest Pain COMPARISON STUDY: Chest radiograph September 08, 2018. FINDINGS: Lung volumes are normal. There is no pneumothorax or pleural effusion. Linear right lower l delmy opacities favor atelectasis. Felicity B lines are likely present. The findings suggest mild interst itial pulmonary edema. No consolidation to suggest pneumonia. IMPRESSION: Mild interstitial pulmonary edema. Electronically signed by: Deric Hardwick M.D. 09/21/2018 10:17 AM
[2018-09-21 10:20] LABS: Albumin Level 3.7 gm/dl (3.4-5.0); BUN Creatinine Ratio 13.7 (10-20); Calcium 8.7 mg/dl (8.5-10.1); Creatinine Clr Calc Pharmacy 57.5 ml/min; Est GFR (African American) 81.2; Magnesium 2.2 mg/dl (1.8-2.4); Potassium 4.2 mmol/L (3.5-5.1)
[2018-09-21 10:22] LABS: Albumin Globulin Ratio 0.9 (0.9-2); Bilirubin,Total 0.4 mg/dl (0.2-1); Globulin 3.9 gm/dl (2.5-4.0); Total Protein 7.6 gm/dl (6.4-8.2)
[2018-09-21] MEDS ORDERED: NITROGLYCERIN SL 0.4 MG/TAB TAB SL PRN (15:29)
[2018-09-21] MEDS ORDERED: ALUMINUM/MAGNESIUM SUSP 30 ML UDC PO PRN (15:29)
[2018-09-21 16:45] LABS: Troponin I 0.026 ng/ml (0-0.045)
[2018-09-21] MEDS: ACETAMINOPHEN 325 MG TAB PO PRN (19:53)
[2018-09-21] MEDS: METOPROLOL TARTRATE 25 MG TAB PO SCH (19:54)
--- NOTE | 2018-09-21 20:38 | Emergency Department Note ---
Entered by Cullen Trujillo acting as a scribe for History of Present Illness General Chief complaint: Chest Pain Stated complaint: CHEST PAIN,HYPERTENSION,DIZZY,PAIN IN LT ARM Time Seen by Provider: 09/21/18 09:44 Source: patient Limitations: no limitations History of Present Illness Provider complaint: Left neck/chest pain Onset (ago): hour(s) (4.5 hours ago) Location: chest (left) Pain Consistency: + constant Maximum Pain Intensity: 5 Exacerbated By: + other (walking to the restroom) Associated symptoms: + headaches (Lightheaded/Dizzy), + nausea/vomiting (Nausea , NO vomiting) and + shortness of breath Treatments prior to arrival: other (Ibuprofen) The patient is a 57 year old female who presents to the Emergency Room with complaints of left sided neck and chest pain. The patient states that she first started to notice pain in the left side of her neck last night. She went to bed and woke up at 0500 this morning, 4.5 hours ago, to use the restroom. When she woke up she noticed the pain in the left side of her neck had worsened and radiated into the left side of her chest as well. The pain worsened further as she walked to the restroom. This pain is still present currently, but it is much more subtle as compared to 0500 this morning. The patient also notes that she became dizzy/lightheaded, nauseous, and short of breath which made her feel like she was going to pass out. She never lost consciousness and denies any diaphoresis during this episode. The patient adds that she has two cardiac stents, with the second stent placed just 3 weeks ago. The second stent was placed after she presented to the emergency department with left sided chest pain. Home Medications Home Medications Medication Instructions Recorded Confirmed Type albuterol sulfate [ProAir 1 puff INHALATION Q4H PRN 08/14/18 09/21/18 History RespiClick] aspirin 81 mg PO QAM 08/14/18 09/21/18 History atorvastatin 80 mg PO HS 08/14/18 09/21/18 History coQ10 (ubiquinol) 100 mg PO QAM 08/14/18 09/21/18 History lisinopril 2.5 mg PO QAM 08/14/18 09/21/18 History metoprolol tartrate 37.5 mg PO BID 08/14/18 09/21/18 History multivitamin 1 tab PO QAM 08/14/18 09/21/18 History pantoprazole 40 mg PO QAM 08/14/18 09/21/18 History ranitidine HCl 150 mg PO HS PRN 08/14/18 09/21/18 History clopidogrel 75 mg PO QAM 09/21/18 09/21/18 History Allergies Allergy/AdvReac Type Severity Reaction Status Date / Time No Known Allergies Allergy Verified 09/21/18 11:20 Past Med/Surg History Medical History Angina at rest CAD (coronary artery disease) HLD (hyperlipidemia) HTN (hypertension) Chest pain (Acute) Surgical History H/O heart artery stent Family History Other Hypertension Social History marital status: Current Living Situation: Spouse Other Information That Helps Us Care for You: No Feels Safe at Home: Yes Safety Concerns: Feels Safe At This Time Smoking Status: Never smoker Second Hand Exposure: No Hx Alcohol Use: No Hx Substance Use: No Beliefs That Will Affect Care: None Preferred Language: [place] Communication Ability: Effective Investment Sales Assistant Required: No Review of Systems See HPI for pertinent positives & negatives. and A total of 10 systems reviewed and were otherwise negative Physical Exam Vital Signs Vital Signs - 24 hr 09/21/18 09:33 09/21/18 09:57 09/21/18 10:07 Temperature 36.5 C Temperature Source Oral Sepsis Recent Fever Within 48 Hours No Sepsis New/Unexplained Change in Mental Status No Sepsis Action Taken by Nursing No Action Required Pulse Rate 70 Pulse Rate [Finger] Pulse Rate [Left Brachial] 67 Pulse Rhythm [Left Brachial] Regular Pulse Strength [Left Brachial] Respiratory Rate 20 18 Respiratory Effort / Characteristics Non-Labored Spontaneous Respiratory Depth Normal Respiratory Pattern Blood Pressure 135/77 Blood Pressure [Left Arm] 128/70 Blood Pressure Mean 96 Blood Pressure Mean [Left Arm] 89 Blood Pressure Position [Left Arm] Lying Pulse Oximetry 97 97 97 Oxygen Delivery Method Room Air Room Air Room Air 09/21/18 11:38 09/21/18 13:21 09/21/18 13:56 Temperature Temperature Source Sepsis Recent Fever Within 48 Hours Sepsis New/Unexplained Change in Mental Status Sepsis Action Taken by Nursing Pulse Rate Pulse Rate [Finger] Pulse Rate [Left Brachial] 61 59 L Pulse Rhythm [Left Brachial] Pulse Strength [Left Brachial] Respiratory Rate 18 14 Respiratory Effort / Characteristics Non-Labored Spontaneous Respiratory Depth Normal Respiratory Pattern Regular Blood Pressure Blood Pressure [Left Arm] 115/67 105/62 Blood Pressure Mean Blood Pressure Mean [Left Arm] 83 76 Blood Pressure Position [Left Arm] Pulse Oximetry 95 97 Oxygen Delivery Method Room Air Room Air Room Air 09/21/18 14:07 09/21/18 15:15 09/21/18 15:50 Temperature 36.4 C L Temperature Source Oral Sepsis Recent Fever Within 48 Hours Sepsis New/Unexplained Change in Mental Status Sepsis Action Taken by Nursing Pulse Rate 58 L 61 Pulse Rate [Finger] Pulse Rate [Left Brachial] 59 L Pulse Rhythm [Left Brachial] Regular Pulse Strength [Left Brachial] Normal Respiratory Rate 15 16 Respiratory Effort / Characteristics Non-Labored Spontaneous Respiratory Depth Normal Respiratory Pattern Regular Blood Pressure 101/67 Blood Pressure [Left Arm] 111/64 Blood Pressure Mean Blood Pressure Mean [Left Arm] 79 Blood Pressure Position [Left Arm] Sitting Pulse Oximetry 96 95 Oxygen Delivery Method Room Air Room Air 09/21/18 20:23 Temperature 36.8 C Temperature Source Oral Sepsis Recent Fever Within 48 Hours Sepsis New/Unexplained Change in Mental Status Sepsis Action Taken by Nursing Pulse Rate Pulse Rate [Finger] 66 Pulse Rate [Left Brachial] Pulse Rhythm [Left Brachial] Pulse Strength [Left Brachial] Respiratory Rate 17 Respiratory Effort / Characteristics Respiratory Depth Respiratory Pattern Blood Pressure Blood Pressure [Left Arm] 116/65 Blood Pressure Mean Blood Pressure Mean [Left Arm] 82 Blood Pressure Position [Left Arm] Lying Pulse Oximetry 96 Oxygen Delivery Method Room Air GENERAL: Patient is in no acute distress. HEENT: No acute trauma, normocephalic atraumatic, mucous membranes moist, no nasal congestion, no scleral icterus. NECK: No stridor, no adenopathy, no meningismus, trachea is midline. LUNGS: There are scattered crackles at both bases, no wheezing. Breath sounds are equal, no respiratory distress. HEART: Without murmurs gallops or rubs, regular rate and rhythm. ABDOMEN: Soft, nontender, bowel sounds positive, no hernias, no peritonitis. EXTREMITIES: No cyanosis or edema, full range of motion of all the joints without pain or difficulty, no signs for acute trauma. NEUROLOGIC: Oriented x 3, no acute motor or sensory deficits, no focal weakness. SKIN: No rash, no jaundice, no diaphoresis. Course 09: Past medical records reviewed. The patient was evaluated in room C3, and a complete history and physical examination were performed. 1130: I paged cardiology at this time. 1143: I reviewed the patient's case with Dr. Gena Negron Cardiology. He suggests admitting the patient to medicine for a chest pain rule-out. 1155: I reviewed the patient's case with Dr. Zain LEONARD Hospitalist. She will evaluate the patient for further management. Consultations Consultation #1: 1143: I reviewed the patient's case with Dr. Gena Negron Cardiology. He suggests admitting the patient to medicine for a chest pain rule- out. Consultation #2: 1155: I reviewed the patient's case with Dr. Zain LEONARD Hospitalist. She will evaluate the patient for further management. Administered Medications Acetaminophen (Tylenol) 650 mg PO Q4H PRN PRN Reason: pain/fever Stop: 10/21/18 15:28 Last Admin: 09/21/18 19:53 Dose: 650 mg Atorvastatin Calcium (Lipitor) 80 mg PO HS DARY Stop: 10/21/18 20:59 Last Admin: 09/21/18 19:54 Dose: 80 mg Metoprolol Tartrate (Lopressor) 37.5 mg PO BID DARY Stop: 10/21/18 20:59 Last Admin: 09/21/18 19:54 Dose: 37.5 mg Ranitidine HCl (Zantac) 150 mg PO HS PRN PRN Reason: Acid Reflux Stop: 10/21/18 15:28 Last Admin: 09/21/18 19:54 Dose: 150 mg Discontinued Medications Nitroglycerin (Nitro-Bid 2%) 0.5 inch EXT NOW STA Stop: 09/21/18 09:53 Last Admin: 09/21/18 10:06 Dose: 0.5 inch Medical Decision Making Differential Diagnosis Differential Diagnosis includes: Cardiac ischemia, myocardial infection, CHF, aortic dissection, pulmonary embolism, anemia, electrolyte or metabolic abnormality, reflux, musculoskeletal pain. Medical Records Attestation: I reviewed the patient's medical records. Home Medications Current Medication List: was personally reviewed by me Laboratory Data Attestation: I reviewed the patient's lab results. Result diagrams: 09/21/18 09:50 09/21/18 09:50 Lab Results 09/21/18 09/21/18 09/21/18 Range/Units 09:50 09:50 09:50 WBC 5.52 (4.8-10.8) K/uL RBC 4.57 (4.2-5.4) M/uL Hgb 13.9 (12.0-16.0) g/dL Hct 41.2 (37-47) % MCV 90.2 (80-100) fL MCH 30.4 (25-34) pg MCHC 33.7 (32-36) g/dL RDW Std Deviation 46.2 (36.4-46.3) fL RDW Coeff of Chetna 14.1 (11.5-14.5) % Plt Count 243 (130-400) K/uL MPV 10.3 (7.4-10.4) fL Immature Gran % (Auto) 0.2 % Neut % (Auto) 55.4 % Lymph % (Auto) 35.7 % Parke % (Auto) 5.3 % Eos % (Auto) 1.6 % Baso % (Auto) 1.8 % Immature Gran # (Auto) 0.01 (0.00-0.02) K/uL Neut # (Auto) 3.06 (1.4-6.5) K/uL Lymph # (Auto) 1.97 (1.2-3.4) K/uL Parke # (Auto) 0.29 (0.11-0.59) K/uL Eos # (Auto) 0.09 (0-0.5) K/uL Baso # (Auto) 0.10 (0-0.2) K/uL PT 10.0 (9.0-12.0) Seconds INR 1.0 (0.9-1.1) APTT 26.4 (21.0-31.0) Seconds PTT Ratio 1.0 Sodium 138 (136-145) mmol/L Potassium 4.2 (3.5-5.1) mmol/L Chloride 107 (98-107) mmol/L Carbon Dioxide 26 (21-32) mmol/L Anion Gap 5.0 (3-11) BUN 12 (7-18) mg/dl Creatinine 0.91 (0.6-1.2) mg/dl Est Cr Clr Drug Dosing 57.5 ml/min Est GFR ( Amer) 81.2 Est GFR (Non-Af Amer) 70.0 BUN/Creatinine Ratio 13.7 (10-20) Glucose 103 H (70-99) mg/dl Calcium 8.7 (8.5-10.1) mg/dl Magnesium 2.2 (1.8-2.4) mg/dl Total Bilirubin 0.4 (0.2-1) mg/dl AST 17 (15-37) U/L ALT 24 (12-78) U/L Alkaline Phosphatase 71 (45-117) U/L POC Troponin I (0-0.045) ng/ml Troponin I (0-0.045) ng/ml NT-Pro-B Natriuret Pep (0-900) pg/ml Total Protein 7.6 (6.4-8.2) gm/dl Albumin 3.7 (3.4-5.0) gm/dl Globulin 3.9 (2.5-4.0) gm/dl Albumin/Globulin Ratio 0.9 (0.9-2) Lipase 107 (73-393) U/L 09/21/18 09/21/18 Range/Units 10:00 15:52 WBC (4.8-10.8) K/uL RBC (4.2-5.4) M/uL Hgb (12.0-16.0) g/dL Hct (37-47) % MCV (80-100) fL MCH (25-34) pg MCHC (32-36) g/dL RDW Std Deviation (36.4-46.3) fL RDW Coeff of Chetna (11.5-14.5) % Plt Count (130-400) K/uL MPV (7.4-10.4) fL Immature Gran % (Auto) % Neut % (Auto) % Lymph % (Auto) % Parke % (Auto) % Eos % (Auto) % Baso % (Auto) % Immature Gran # (Auto) (0.00-0.02) K/uL Neut # (Auto) (1.4-6.5) K/uL Lymph # (Auto) (1.2-3.4) K/uL Parke # (Auto) (0.11-0.59) K/uL Eos # (Auto) (0-0.5) K/uL Baso # (Auto) (0-0.2) K/uL PT (9.0-12.0) Seconds INR (0.9-1.1) APTT (21.0-31.0) Seconds PTT Ratio Sodium (136-145) mmol/L Potassium (3.5-5.1) mmol/L Chloride (98-107) mmol/L Carbon Dioxide (21-32) mmol/L Anion Gap (3-11) BUN (7-18) mg/dl Creatinine (0.6-1.2) mg/dl Est Cr Clr Drug Dosing ml/min Est GFR ( Amer) Est GFR (Non-Af Amer) BUN/Creatinine Ratio (10-20) Glucose (70-99) mg/dl Calcium (8.5-10.1) mg/dl Magnesium (1.8-2.4) mg/dl Total Bilirubin (0.2-1) mg/dl AST (15-37) U/L ALT (12-78) U/L Alkaline Phosphatase (45-117) U/L POC Troponin I < 0.03 (0-0.045) ng/ml Troponin I 0.026 (0-0.045) ng/ml NT-Pro-B Natriuret Pep 2020 H (0-900) pg/ml Total Protein (6.4-8.2) gm/dl Albumin (3.4-5.0) gm/dl Globulin (2.5-4.0) gm/dl Albumin/Globulin Ratio (0.9-2) Lipase (73-393) U/L Imaging Data Radiologist's Impression: Radiology results as stated below per my review and the radiologist's interpretation: XR chest 1V portable CLINICAL HISTORY: Chest Pain COMPARISON STUDY: Chest radiograph September 08, 2018. FINDINGS: Lung volumes are normal. There is no pneumothorax or pleural effusion. Linear right lower lung opacities favor atelectasis. Felicity B lines are likely present. The findings suggest mild interstitial pulmonary edema. No consolidation to suggest pneumonia. IMPRESSION: Mild interstitial pulmonary edema. Electronically signed by: Deric Hardwick M.D. 09/21/2018 10:17 AM ECG Data Attestation: I personally reviewed and interpreted this ECG as follows: Indication: chest pain Rate (beats per minute): 71 Rhythm: normal sinus Findings: + other (Old lateral infarct) and + T-wave inversion (laterally); no ST elevation Comparison ECG Date: from (08/29/2018 11:51:01 ) Change: the following changes noted (TWI are new) Blood Pressure Blood Pressure Findings: Normal blood pressure MDM Narrative There is no leukocytosis or concerning anemia. No significant electrolyte abnormality, kidney failure, hepatitis or pancreatitis. No coagulopathy. EKG shows a sinus rhythm with some T wave inversions laterally. These do appear new compared to the last EKG but have been noticed on previous EKGs. Cardiac enzyme testing x1 is not elevated. Chest film shows some possible mild CHF, no pneumonia, pneumothorax or mediastinal widening. The patient had already taken aspirin and Plavix today. She was given Nitropaste. She is currently resting comfortably. The patient presents with left-sided chest pain feeling somewhat similar to her recent PA. She does have some EKG changes. She has a strong cardiac history. I did speak with cardiology, a cardiac workup and hospitalization was recommended. I talked to the patient, I reviewed all results with her. I spoke to the shelter case manager, the on-call hospitalist was consulted. Impression & Plan Chest pain, precordial Discharge Plan Visit Data *Final* Discharge Date/Time: 09/21/18 14:07 Chief Complaint: Chest Pain Stated Complaint: CHEST PAIN,HYPERTENSION,DIZZY,PAIN IN LT ARM ED Provider: Bryn Haddad Discharge Problem: Chest pain, precordial Patient Disposition: Being Evaluated by Hospitalist Discharge Instructions Interventions: ED Discharge Assessment Last Done: 09/21/18 14:07 The khushbooibe's documentation has been prepared under my direction and personally reviewed by me in its entirety. I confirm that the note above accurately reflects all work, treatment, procedures, and medical decision making performed by me.
--- NOTE | 2018-09-21 20:56 | History & Physical Report ---
Date of Service September 21, 2018 Assessment & Plan (1) Chest pain, precordial: Episode of left neck pain, substernal chest discomfort. Concerning in patient with known CAD, HTN, HLP. * Admit to telemetry * Trend cardiac enzymes * Continue ASA 80mg po daily, Plavix 75mg po daily, Metoprolol 37.5mg po BID, Atorvastatin 80mg po daily and Lisinopril 2.5mg po daily * Nitroglycerine PRN chest pain * Present on Admission?: Yes (2) CAD (coronary artery disease): Plan as above (3) HTN (hypertension): Blood pressure presently stable. * Continue Metoprolol, Lisinopril * Continue to monitor * Present on Admission?: Yes (4) HLD (hyperlipidemia): Continue Statin * Lipitor 80mg po daily (5) GERD (gastroesophageal reflux disease): Stable. * Continue Protonix daily * Maalox PRN * F/E/N - Heplock. Electrolytes WNL, continue to monitor and replete as needed. Heart healthy diet as tolerated Ppx - Low risk for DVT. Patient on ASA/Plavix and Protonix Code -DNR per discussion with patient Dispo -Admit to telemetry for CP rule out ACS History of Present Illness Chief Complaint: Chest pain Primary Care Provider: Brisa Peters MD Patient is a 57yo female with history of CAD s/p NM with stent placement to the proximal LAD in 2007. Patient had a failed stress test in 2015 with subsequent cath revealing patent stent. 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 Patient follows with Cardiology. She is presently on DAPT with ASA and Plavix (was on Brillinta in the past, however, was unable to tolerated secondary to wide array of side effects). Patient presents to the ER today with complaint of neck pain. The pain was first noted yesterday 09/20/18 around 18:00 while she was at rest. Dull, aching on left side of her neck. The pain lasted most of the evening but was not severe or bothersome. This AM the patient woke up around 05:00 to use the bathroom and experienced severe right sided neck pain which progressed to left sided chest pain. The pain was severe, chest tightness/pressure associated with nausea, dizziness. She states that she checked her vital signs during the pain and her blood pressure was 141/86, HR in 60's. States that her pain this AM was somewhat like her prior NM pain. Patient is presently without chest pain. She has no additional complaints at this time. ER Course: Nitropaste Allergies Allergy/AdvReac Type Severity Reaction Status Date / Time No Known Allergies Allergy Verified 09/21/18 11:20 Home Medications Home Medications Medication Instructions Recorded Confirmed Type albuterol sulfate [ProAir 1 puff INHALATION Q4H PRN 08/14/18 09/21/18 History RespiClick] aspirin 81 mg PO QAM 08/14/18 09/21/18 History atorvastatin 80 mg PO HS 08/14/18 09/21/18 History coQ10 (ubiquinol) 100 mg PO QAM 08/14/18 09/21/18 History lisinopril 2.5 mg PO QAM 08/14/18 09/21/18 History metoprolol tartrate 37.5 mg PO BID 08/14/18 09/21/18 History multivitamin 1 tab PO QAM 08/14/18 09/21/18 History pantoprazole 40 mg PO QAM 08/14/18 09/21/18 History ranitidine HCl 150 mg PO HS PRN 08/14/18 09/21/18 History clopidogrel 75 mg PO QAM 09/21/18 09/21/18 History Past Med/Surg History Medical History Angina at rest CAD (coronary artery disease) HLD (hyperlipidemia) HTN (hypertension) Chest pain (Acute) GERD (gastroesophageal reflux disease) Surgical History H/O heart artery stent LAD stent in 2008 with in-stent thrombosis and STEMI in 2018 Family History Other Hypertension Social History marital status: Current Living Situation: Spouse Other Information That Helps Us Care for You: No Feels Safe at Home: Yes Safety Concerns: Feels Safe At This Time Smoking Status: Never smoker Second Hand Exposure: No Hx Alcohol Use: No Hx Substance Use: No Beliefs That Will Affect Care: None Preferred Language: Egyptian Communication Ability: Effective Core Cutter Required: No Review of Systems All systems reviewed & are unremarkable except as noted in HPI & below Physical Exam 2 Vital Signs (Past 24 Hours): Last Vital Signs Temp 36.8 C 09/21/18 20:23 Pulse 66 09/21/18 20:23 Resp 17 09/21/18 20:23 BP 116/65 09/21/18 20:23 Pulse Ox 96 09/21/18 20:23 Physical Exam: General: patient resting comfortably, NAD, non-toxic in appearance, AA&O x 4 Skin: warm, dry, intact, no rashes or lesions HEENT: NC/AT, PERRL, EOMI, anicteric sclera, conjunctiva without injection, external ear normal to inspection and nontender, nares patent, moist mucus membranes, dentition intact, no oropharyngeal lesions, neck supple, trachea midline, no LAD, no thyromegaly, no JVD, no neck tenderness, no carotid bruits Heart: +S1/S2, regular, no m/r/g, no chest wall tenderness Lungs: equal air entry bilaterally, no rales/rhonchi/wheezes Abd: +BS, soft, NT/ND, no masses/organomegaly/ascites Ext: warm, 2+ pulses in UE/LE bilaterally, no clubbing/cyanosis or edema Neuro: nonfocal, patient AA&O x 4, speech intact, no facial droop, moving all extremities on command with equal strength 5/5 Results & Data Laboratory Results Lab Results 09/21/18 09/21/18 09/21/18 Range/Units 09:50 09:50 09:50 WBC 5.52 (4.8-10.8) K/uL RBC 4.57 (4.2-5.4) M/uL Hgb 13.9 (12.0-16.0) g/dL Hct 41.2 (37-47) % MCV 90.2 (80-100) fL MCH 30.4 (25-34) pg MCHC 33.7 (32-36) g/dL RDW Std Deviation 46.2 (36.4-46.3) fL RDW Coeff of Chetna 14.1 (11.5-14.5) % Plt Count 243 (130-400) K/uL MPV 10.3 (7.4-10.4) fL Immature Gran % (Auto) 0.2 % Neut % (Auto) 55.4 % Lymph % (Auto) 35.7 % Shannon % (Auto) 5.3 % Eos % (Auto) 1.6 % Baso % (Auto) 1.8 % Immature Gran # (Auto) 0.01 (0.00-0.02) K/uL Neut # (Auto) 3.06 (1.4-6.5) K/uL Lymph # (Auto) 1.97 (1.2-3.4) K/uL Shannon # (Auto) 0.29 (0.11-0.59) K/uL Eos # (Auto) 0.09 (0-0.5) K/uL Baso # (Auto) 0.10 (0-0.2) K/uL PT 10.0 (9.0-12.0) Seconds INR 1.0 (0.9-1.1) APTT 26.4 (21.0-31.0) Seconds PTT Ratio 1.0 Sodium 138 (136-145) mmol/L Potassium 4.2 (3.5-5.1) mmol/L Chloride 107 (98-107) mmol/L Carbon Dioxide 26 (21-32) mmol/L Anion Gap 5.0 (3-11) BUN 12 (7-18) mg/dl Creatinine 0.91 (0.6-1.2) mg/dl Est Cr Clr Drug Dosing 57.5 ml/min Est GFR ( Amer) 81.2 Est GFR (Non-Af Amer) 70.0 BUN/Creatinine Ratio 13.7 (10-20) Glucose 103 H (70-99) mg/dl Calcium 8.7 (8.5-10.1) mg/dl Magnesium 2.2 (1.8-2.4) mg/dl Total Bilirubin 0.4 (0.2-1) mg/dl AST 17 (15-37) U/L ALT 24 (12-78) U/L Alkaline Phosphatase 71 (45-117) U/L POC Troponin I (0-0.045) ng/ml Troponin I (0-0.045) ng/ml NT-Pro-B Natriuret Pep (0-900) pg/ml Total Protein 7.6 (6.4-8.2) gm/dl Albumin 3.7 (3.4-5.0) gm/dl Globulin 3.9 (2.5-4.0) gm/dl Albumin/Globulin Ratio 0.9 (0.9-2) Lipase 107 (73-393) U/L 09/21/18 09/21/18 Range/Units 10:00 15:52 WBC (4.8-10.8) K/uL RBC (4.2-5.4) M/uL Hgb (12.0-16.0) g/dL Hct (37-47) % MCV (80-100) fL MCH (25-34) pg MCHC (32-36) g/dL RDW Std Deviation (36.4-46.3) fL RDW Coeff of Chetna (11.5-14.5) % Plt Count (130-400) K/uL MPV (7.4-10.4) fL Immature Gran % (Auto) % Neut % (Auto) % Lymph % (Auto) % Shannon % (Auto) % Eos % (Auto) % Baso % (Auto) % Immature Gran # (Auto) (0.00-0.02) K/uL Neut # (Auto) (1.4-6.5) K/uL Lymph # (Auto) (1.2-3.4) K/uL Shannon # (Auto) (0.11-0.59) K/uL Eos # (Auto) (0-0.5) K/uL Baso # (Auto) (0-0.2) K/uL PT (9.0-12.0) Seconds INR (0.9-1.1) APTT (21.0-31.0) Seconds PTT Ratio Sodium (136-145) mmol/L Potassium (3.5-5.1) mmol/L Chloride (98-107) mmol/L Carbon Dioxide (21-32) mmol/L Anion Gap (3-11) BUN (7-18) mg/dl Creatinine (0.6-1.2) mg/dl Est Cr Clr Drug Dosing ml/min Est GFR ( Amer) Est GFR (Non-Af Amer) BUN/Creatinine Ratio (10-20) Glucose (70-99) mg/dl Calcium (8.5-10.1) mg/dl Magnesium (1.8-2.4) mg/dl Total Bilirubin (0.2-1) mg/dl AST (15-37) U/L ALT (12-78) U/L Alkaline Phosphatase (45-117) U/L POC Troponin I < 0.03 (0-0.045) ng/ml Troponin I 0.026 (0-0.045) ng/ml NT-Pro-B Natriuret Pep 2020 H (0-900) pg/ml Total Protein (6.4-8.2) gm/dl Albumin (3.4-5.0) gm/dl Globulin (2.5-4.0) gm/dl Albumin/Globulin Ratio (0.9-2) Lipase (73-393) U/L Diagnostic Findings XR chest 1V portable CLINICAL HISTORY: Chest Pain COMPARISON STUDY: Chest radiograph September 08, 2018. FINDINGS: Lung volumes are normal. There is no pneumothorax or pleural effusion. Linear right lower lung opacities favor atelectasis. Felicity B lines are likely present. The findings suggest mild interstitial pulmonary edema. No consolidation to suggest pneumonia. IMPRESSION: Mild interstitial pulmonary edema. Electronically signed by: Deric Hardwick M.D. 09/21/2018 10:17 AM Dictated: 09/21/18 1015 Transcribed: 09/21/18 1015 ECG Additional Comments: THe study shows NSR at 71bpm, normal axis and intervals, TWI present in anterior-lateral leads Code Status & VTE Plan Code Status DNR per discussion with patient Critical Care Time Critical Care Time: No _ (1) CAD (coronary artery disease) Coronary Disease-Associated Artery/Lesion type: [place] artery [place] vs. transplanted heart: [place] heart Associated angina: with stable angina Qualified Code(s): I25.118 - Atherosclerotic heart disease of [place] coronary artery with other forms of angina pectoris (2) HTN (hypertension) Hypertension type: essential hypertension Qualified Code(s): I10 - Essential (primary) hypertension (3) HLD (hyperlipidemia) Hyperlipidemia type: unspecified Qualified Code(s): E78.5 - Hyperlipidemia, unspecified (4) GERD (gastroesophageal reflux disease) Esophagitis presence: esophagitis presence not specified Qualified Code(s): K21.9 - Gastro-esophageal reflux disease without esophagitis
[2018-09-21] MEDS ORDERED: ATORVASTATIN 40 MG TAB PO SCH (21:00)
[2018-09-22] MEDS: ACETAMINOPHEN 325 MG TAB PO PRN (04:16)
[2018-09-22 05:49] LABS: Basophils # (auto) 0.06 K/uL (0-0.2); Eosinophils # (auto) 0.12 K/uL (0-0.5); Hematocrit (blood only) 37.3 % (37-47); Hemoglobin 12.2 g/dL (12.0-16.0); Immature Granulocytes # (auto) 0.01 K/uL (0.00-0.02); Immature Granulocytes % (auto) 0.2 %; Lymphocytes # (auto) 2.56 K/uL (1.2-3.4); Lymphocytes % (auto) 43.6 %; Mean Corpuscular Hgb Conc 32.7 g/dL (32-36); Mean Corpuscular Volume 89.9 fL (80-100); Mean Platelet Volume 9.9 fL (7.4-10.4); Monocytes # (auto) 0.44 K/uL (0.11-0.59); Monocytes % (auto) 7.5 %; Neutrophils # (auto) 2.68 K/uL (1.4-6.5); Neutrophils % (auto) 45.7 %; Platelet Count 214 K/uL (130-400); RDW Standard Deviation 46.5 fL (36.4-46.3); Red Blood Count 4.15 M/uL (4.2-5.4); White Blood Count 5.87 K/uL (4.8-10.8)
[2018-09-22 06:18] LABS: BUN Creatinine Ratio 17.3 (10-20); Calcium 8.5 mg/dl (8.5-10.1); Creatinine Clr Calc Pharmacy 56.3 ml/min; Est GFR (African American) 79.1; Est GFR (Non-African American) 68.2
[2018-09-22 06:22] LABS: Troponin I 0.017 ng/ml (0-0.045)
[2018-09-22] MEDS: METOPROLOL TARTRATE 25 MG TAB PO SCH (08:14)
[2018-09-22] MEDS ORDERED: COQ10 100 MG PO SCH (09:00)
[2018-09-22] MEDS ORDERED: ASPIRIN 81 MG ECTAB PO SCH (09:00)
[2018-09-22] MEDS ORDERED: LISINOPRIL 2.5 MG TAB PO SCH (09:00)
[2018-09-22] MEDS ORDERED: PANTOprazole 40 MG TAB PO SCH (09:00)
[2018-09-22] MEDS ORDERED: CLOPIDOGREL BISULFATE 75 MG TAB PO SCH (09:00)
--- NOTE | 2018-09-22 09:47 | Cardiology Progress Note ---
Date of Service September 22, 2018 Assessment & Plan (1) Chest pain: The patient presented with an atypical chest pain syndrome. Specifically , left neck discomfort began after she moved her large pot of soup. Suspect her complaints are musculoskeletal in origin. No need for further cardiac evaluation at this time. (2) CAD (coronary artery disease): The patient has a history of a proximal LAD stent in 2007. She presented here on August 29 with an acute anterior myocardial infarction secondary to an in stent thrombosis. Dr. Callahan placed a drug-eluting stent in the proximal LAD. She was changed from Brilinta to Plavix as an outpatient due to side effects. (3) Ischemic cardiomyopathy: Left ventricular ejection fraction was reduced at 30-35% at the time of her acute event in August. We plan to recheck an echocardiogram as an outpatient in 1-2 months. (4) H/O heart artery stent: As above, she now has 2 stents in the proximal LAD. Subjective The patient presented yesterday with complaints of left neck pain which began Tuesday evening after she moved a large pot soup. She immediately recognized discomfort in the left neck. She woke on the morning of admission with more severe left-sided neck discomfort and associated nausea and dizziness. She took an ibuprofen and her symptoms resolved. However, she presented to the emergency room realizing her known coronary artery disease and recent CA. Currently, patient is resting comfortably in bed and without complaints. Physical Exam 2 Vital Signs (Past 24 Hours): Last Vital Signs Temp 36.8 C 09/22/18 08:00 Pulse 65 09/22/18 08:00 Resp 18 09/22/18 08:00 BP 117/70 09/22/18 08:00 Pulse Ox 95 09/22/18 08:00 Physical Exam: In general this is a well-developed well-nourished white female in no acute distress. HEENT exam is negative. Neck is supple with full carotid upstrokes. There are no carotid bruits. Jugular venous pressure is flat at 90. There is no thyromegaly. Cardiovascular exam reveals a regular rhythm with a normal S1 and S2. No S3, S4, or murmurs are noted. Lungs are clear without rales, rhonchi, or wheezes. Abdomen is soft and nontender without bruits. Extremities reveal intact radial artery and posterior tibial pulses bilaterally. There is no peripheral edema. Results & Data Laboratory Results Laboratory Results - last 24 hr 09/21/18 09/21/18 09/21/18 09:50 09:50 09:50 WBC 5.52 RBC 4.57 Hgb 13.9 Hct 41.2 MCV 90.2 MCH 30.4 MCHC 33.7 RDW Std Deviation 46.2 RDW Coeff of Chetna 14.1 Plt Count 243 MPV 10.3 Immature Gran % (Auto) 0.2 Neut % (Auto) 55.4 Lymph % (Auto) 35.7 [place]ites[place] % (Auto) 5.3 Eos % (Auto) 1.6 Baso % (Auto) 1.8 Immature Gran # (Auto) 0.01 Neut # (Auto) 3.06 Lymph # (Auto) 1.97 [place]ites[place] # (Auto) 0.29 Eos # (Auto) 0.09 Baso # (Auto) 0.10 PT 10.0 INR 1.0 APTT 26.4 PTT Ratio 1.0 Sodium 138 Potassium 4.2 Chloride 107 Carbon Dioxide 26 Anion Gap 5.0 BUN 12 Creatinine 0.91 Est Cr Clr Drug Dosing 57.5 Est GFR ( Amer) 81.2 Est GFR (Non-Af Amer) 70.0 BUN/Creatinine Ratio 13.7 Glucose 103 H Calcium 8.7 Magnesium 2.2 Total Bilirubin 0.4 AST 17 ALT 24 Alkaline Phosphatase 71 POC Troponin I Troponin I NT-Pro-B Natriuret Pep Total Protein 7.6 Albumin 3.7 Globulin 3.9 Albumin/Globulin Ratio 0.9 Lipase 107 09/21/18 09/21/18 09/21/18 10:00 15:52 22:55 WBC RBC Hgb Hct MCV MCH MCHC RDW Std Deviation RDW Coeff of [place] Plt Count MPV Immature Gran % (Auto) Neut % (Auto) Lymph % (Auto) [place] % (Auto) Eos % (Auto) Baso % (Auto) Immature Gran # (Auto) Neut # (Auto) Lymph # (Auto) [place] # (Auto) Eos # (Auto) Baso # (Auto) PT INR APTT PTT Ratio Sodium Potassium Chloride Carbon Dioxide Anion Gap BUN Creatinine Est Cr Clr Drug Dosing Est GFR ( Amer) Est GFR (Non-Af Amer) BUN/Creatinine Ratio Glucose Calcium Magnesium Total Bilirubin AST ALT Alkaline Phosphatase POC Troponin I < 0.03 Troponin I 0.026 < 0.015 NT-Pro-B Natriuret Pep 2020 H Total Protein Albumin Globulin Albumin/Globulin Ratio Lipase 09/22/18 09/22/18 05:28 05:28 WBC 5.87 RBC 4.15 L Hgb 12.2 Hct 37.3 MCV 89.9 MCH 29.4 MCHC 32.7 RDW Std Deviation 46.5 H RDW Coeff of Chetna 14.0 Plt Count 214 MPV 9.9 Immature Gran % (Auto) 0.2 Neut % (Auto) 45.7 Lymph % (Auto) 43.6 [place] % (Auto) 7.5 Eos % (Auto) 2.0 Baso % (Auto) 1.0 Immature Gran # (Auto) 0.01 Neut # (Auto) 2.68 Lymph # (Auto) 2.56 [place] # (Auto) 0.44 Eos # (Auto) 0.12 Baso # (Auto) 0.06 PT INR APTT PTT Ratio Sodium 140 Potassium 4.0 Chloride 110 H Carbon Dioxide 27 Anion Gap 3.0 BUN 16 Creatinine 0.93 Est Cr Clr Drug Dosing 56.3 Est GFR ( Amer) 79.1 Est GFR (Non-Af Amer) 68.2 BUN/Creatinine Ratio 17.3 Glucose 89 Calcium 8.5 Magnesium Total Bilirubin AST ALT Alkaline Phosphatase POC Troponin I Troponin I 0.017 NT-Pro-B Natriuret Pep Total Protein Albumin Globulin Albumin/Globulin Ratio Lipase Diagnostic Findings EKG notes normal sinus rhythm and an evolving anterolateral infarct pattern. _ (1) CAD (coronary artery disease) Associated angina: with stable angina Coronary Disease-Associated Artery/ Lesion type: [place] artery [place] vs. transplanted heart: [place] heart Qualified Code(s): I25.118 - Atherosclerotic heart disease of [place] coronary artery with other forms of angina pectoris
--- NOTE | 2018-09-22 16:06 | Discharge Summary ---
Date of Service September 22, 2018 Admission HPI Per Admitting Provider Patient is a 57yo female with history of CAD s/p VA with stent placement to the proximal LAD in 2007. Patient had a failed stress test in 2015 with subsequent cath revealing patent stent. She presented to [facility] on 08/29/18 with acute anterior STEMI, she was taken to the chemical laboratory technician and found to have in-stent thrombosis s/p placement of stent to LAD. Patient follows with Cardiology. She is presently on DAPT with ASA and Plavix (was on Brillinta in the past, however, was unable to tolerated secondary to wide array of side effects). Patient presents to the ER today with complaint of neck pain. The pain was first noted yesterday 09/20/18 around 18:00 while she was at rest. Dull, aching on left side of her neck. The pain lasted most of the evening but was not severe or bothersome. This AM the patient woke up around 05:00 to use the bathroom and experienced severe right sided neck pain which progressed to left sided chest pain. The pain was severe, chest tightness/pressure associated with nausea, dizziness. She states that she checked her vital signs during the pain and her blood pressure was 141/86, HR in 60's. States that her pain this AM was somewhat like her prior VA pain. Patient is presently without chest pain. She has no additional complaints at this time. ER Course: Nitropaste Principal Diagnosis no Discharge Data Allergies Allergy/AdvReac Type Severity Reaction Status Date / Time No Known Allergies Allergy Verified 09/21/18 11:20 Consultations 09/21/18 11:56 ED Decision to Admit Stat 09/22/18 07:41 Consult Cardiology Routine Hospital Course (1) Chest pain, precordial: Episode of left neck pain, substernal chest discomfort. Concerning in patient with known CAD, HTN, HLP. * Admit to telemetry * Trend cardiac enzymes * Continue ASA 80mg po daily, Plavix 75mg po daily, Metoprolol 37.5mg po BID, Atorvastatin 80mg po daily and Lisinopril 2.5mg po daily * Nitroglycerine PRN chest pain * (2) CAD (coronary artery disease): Plan as above (3) HTN (hypertension): Blood pressure presently stable. * Continue Metoprolol, Lisinopril * Continue to monitor * (4) HLD (hyperlipidemia): Continue Statin * Lipitor 80mg po daily (5) GERD (gastroesophageal reflux disease): Stable. * Continue Protonix daily * Maalox PRN * F/E/N - Heplock. Electrolytes WNL, continue to monitor and replete as needed. Heart healthy diet as tolerated Ppx - Low risk for DVT. Patient on ASA/Plavix and Protonix Code -DNR per discussion with patient Dispo -Admit to telemetry for CP rule out ACS Upon discharge today: S: Patient has obvious reproducible chest wall musculoskeletal pain, Review of Systems upon discharge Constitutional: negative weakness, or fatigue Respiratory: no cough, sputum, wheezing, or dyspnea on exertion Cardiac: As above, no chest pain, No orthopnea, No PND, No claudication, No palpitations, Abdomen: No pain, No nausea, No vomiting, No diarrhea, No constipation, No GI bleeding Musculoskeletal: No joint pain, No muscle pain, No swelling, No calf pain, No problem reported : No dysuria, No urinary frequency, No incontinence, No hematuria Neurologic: No paralysis, No weakness, No numbness/tingling, No vertigo, No balance problems Psychiatric: No depression symptoms, No anhedonism, No anxiety, No insomnia, No substance abuse Heme: No abnormal bleeding/bruising, No clotting problems, No swollen lymph nodes, No night sweats Skin: No rash, No itch, No new/changing skin lesions, No color change, No bleeding Physical exam upon discharge General Appearance: WD/WN, no apparent distress, Eyes: normal inspection, PERRL, EOMI, sclerae normal ENT: normal ENT inspection, hearing grossly normal, pharynx normal Neck: supple, no adenopathy, thyroid normal, no JVD, no carotid bruits, trachea midline Respiratory/Chest: chest non-tender, normal breath sounds, no respiratory distress, no accessory muscle use, breath sounds, rales, wheezing Cardiovascular: regular rate, rhythm, no JVD, no murmur Abdomen: normal bowel sounds, non tender, soft, no organomegaly, Extremities: normal range of motion, non-tender, normal inspection, no pedal edema, no calf tenderness, normal capillary refill , pelvis stable, joint has no limited range of motion, capillary refill is normal, no cyanosis clubbing Neurologic/Psychiatric: lip of shank cutter II-XII nml as tested, no motor/sensory deficits, alert, normal mood/affect, oriented x 3 Skin: normal color, warm/dry, no rash Lymphatic: no adenopathy Labs upon discharge: Laboratory Results - last 24 hr 09/21/18 09/21/18 09/22/18 15:52 22:55 05:28 WBC 5.87 RBC 4.15 L Hgb 12.2 Hct 37.3 MCV 89.9 MCH 29.4 MCHC 32.7 RDW Std Deviation 46.5 H RDW Coeff of Chetna 14.0 Plt Count 214 MPV 9.9 Immature Gran % (Auto) 0.2 Neut % (Auto) 45.7 Lymph % (Auto) 43.6 [place] % (Auto) 7.5 Eos % (Auto) 2.0 Baso % (Auto) 1.0 Immature Gran # (Auto) 0.01 Neut # (Auto) 2.68 Lymph # (Auto) 2.56 [place] # (Auto) 0.44 Eos # (Auto) 0.12 Baso # (Auto) 0.06 Sodium Potassium Chloride Carbon Dioxide Anion Gap BUN Creatinine Est Cr Clr Drug Dosing Est GFR ( Amer) Est GFR (Non-Af Amer) BUN/Creatinine Ratio Glucose Calcium Troponin I 0.026 < 0.015 NT-Pro-B Natriuret Pep 2020 H 09/22/18 05:28 WBC RBC Hgb Hct MCV MCH MCHC RDW Std Deviation RDW Coeff of Chetna Plt Count MPV Immature Gran % (Auto) Neut % (Auto) Lymph % (Auto) [place] % (Auto) Eos % (Auto) Baso % (Auto) Immature Gran # (Auto) Neut # (Auto) Lymph # (Auto) [place] # (Auto) Eos # (Auto) Baso # (Auto) Sodium 140 Potassium 4.0 Chloride 110 H Carbon Dioxide 27 Anion Gap 3.0 BUN 16 Creatinine 0.93 Est Cr Clr Drug Dosing 56.3 Est GFR ( Amer) 79.1 Est GFR (Non-Af Amer) 68.2 BUN/Creatinine Ratio 17.3 Glucose 89 Calcium 8.5 Troponin I 0.017 NT-Pro-B Natriuret Pep a/P: 57-year-old white female kept in observation because of chest pain, night monitor unremarkable, EKG no changes, cardiac enzyme troponin was negative, discussed with masonry instructor, cardiology feel is absolutely musculoskeletal pain , no need any further evaluation and treatment, and he recommends to discharge patient home, I agreed, patient discharged home without any new medication, I did recommend her to follow-up with her masonry instructor and call cardiology if have any questions Total Time Total Time Spent Total Time Spent (In Minutes): 25 Total Time Includes: Examination of the Patient, Discharge Planning, Medication Reconciliation and Communication With Other Providers Discharge Plan Discharge Items Patient Disposition: Home - Self-Care Reason For Visit: CHEST PAIN Discharge Diagnosis: Atypical chest pain likely musculoskeletal Condition: Fair Discharge Goals: Decrease discomfort, Diagnostic testing, Improve disease control and Increase independence Activity: Resume your previous activity Non-emergency contact: Primary Care Provider and Saw Man Call non-emergency contact if: you have any medication questions Diet: Heart Healthy, Low Fat and Low Sodium (2gm) Addtl Provider Instructions: you have Chest pain, likely atypical chest pain syndrome. you have coronary artery disease, Ischemic cardiomyopathy an dhistory of heart artery stent, you need to follow-up with your masonry instructor as instructed, you need to follow up with your primary care physician in 1 week, - take medication as instructed, never overdose or any misuse, or take with alcohol, because misuse of medicine may cause organ damage or , call me , or your primary care physician if have questions of discharge medicaitons. - call your primary care physician, or go to local emergency room if has any fever/chill, chest pain, shortness of breathing, nausea/vomiting/abdominal pain , facial droop/slurry speech/local weakness, or if has any questions. - fall precaution - diet as instructed - you need to follow up with your subspecialist, such as Dr. Crews Prescriptions: Continue atorvastatin 80 mg tablet 80 mg PO HS RF: 0 pantoprazole 40 mg tablet,delayed release (DR/EC) 40 mg PO QAM RF: 0 ranitidine HCl 150 mg tablet 150 mg PO HS PRN (Reason: Acid Reflux) RF: 0 aspirin 81 mg Tablet,Chewable 81 mg PO QAM RF: 0 lisinopril 2.5 mg tablet 2.5 mg PO QAM RF: 0 metoprolol tartrate 25 mg tablet 37.5 mg PO BID RF: 0 coQ10 (ubiquinol) 100 mg Capsule 100 mg PO QAM RF: 0 albuterol sulfate [ProAir RespiClick] 90 mcg/actuation Aerosol Powdr Breath Activated 1 puff INHALATION Q4H PRN (Reason: Shortness Of Breath Or Wheezing) RF: 0 multivitamin Tablet 1 tab PO QAM RF: 0 clopidogrel 75 mg tablet 75 mg PO QAM RF: 0 Stand-Alone Forms: [facility] Discharge Orders: Discharge Order (Routine); Ordered 09/22/18 Ordered By: Akil Calzada Admission Data Admit Date/Time: 09/21/18 12:42 Attending Provider: Akil Calzada Admit Provider: Marimar Pittman Primary Care Provider: Brisa Rodríguez V Other Providers: Marimar Pittman ; Bentley Avery Service: Telemetry Other Interventions: Discharge Summary Assessment (RN) Last Done: 09/22/18 11:30 DC Date/Time DO NOT enter until pt leaves facility: 09/22/18 12:20
== END 2018-09-22 12:20 | disposition home or self-care (01) ==
LOC: ED 09:26 → 2N 09:26 → SUATTDRO 12:42 → 2N 14:07

== ENCOUNTER 2019-08-27 08:39 | Observation (INO) ==
[2019-08-27 09:46] LABS: Basophils # (auto) 0.05 K/uL (0-0.2); Basophils % (auto) 0.8 %; Eosinophils # (auto) 0.23 K/uL (0-0.5); Eosinophils % (auto) 3.7 %; Hematocrit (blood only) 41.1 % (37-47); Hemoglobin 13.5 g/dL (12.0-16.0); Lymphocytes # (auto) 2.96 K/uL (1.2-3.4); Lymphocytes % (auto) 47.3 %; Mean Corpuscular Hemoglobin 29.5 pg (25-34); Mean Corpuscular Hgb Conc 32.8 g/dL (32-36); Mean Corpuscular Volume 89.9 fL (80-100); Mean Platelet Volume 10.3 fL (7.4-10.4); Monocytes # (auto) 0.45 K/uL (0.11-0.59); Monocytes % (auto) 7.2 %; Neutrophils # (auto) 2.57 K/uL (1.4-6.5); Platelet Count 243 K/uL (130-400); RDW Coefficient of Variation 14.2 % (11.5-14.5); RDW Standard Deviation 46.5 fL (36.4-46.3); Red Blood Count 4.57 M/uL (4.2-5.4); White Blood Count 6.26 K/uL (4.8-10.8)
[2019-08-27 09:54] LABS: Alanine Aminotransferase 20 U/L (12-78); Albumin Level 3.7 gm/dl (3.4-5.0); Aspartate Aminotransferase 16 U/L (15-37); BUN Creatinine Ratio 14.7 (10-20); Blood Urea Nitrogen 15 mg/dl (7-18); Calcium 9.7 mg/dl (8.5-10.1); Carbon Dioxide 28 mmol/L (21-32); Chloride 107 mmol/L (98-107); Creatinine Clr Calc Pharmacy 51.8 ml/min; Est GFR (African American) 71.9; Est GFR (Non-African American) 62.1; Glucose 101 mg/dl (70-99); Lipase 77 U/L (73-393); Sodium 139 mmol/L (136-145)
[2019-08-27 09:55] LABS: Partial Thromboplastin Ratio 0.9; Partial Thromboplastin Time 25.4 Seconds (21.0-31.0); Prothrombin Time 10.1 Seconds (9.0-12.0)
[2019-08-27 09:59] LABS: Alkaline Phosphatase 70 U/L (45-117); Bilirubin,Total 0.5 mg/dl (0.2-1); Globulin 3.8 gm/dl (2.5-4.0); Total Protein 7.5 gm/dl (6.4-8.2); Troponin I < 0.015 ng/ml (0-0.045)
[2019-08-27] MEDS ORDERED: ASPIRIN CHEW 324 MG PO STA (10:06)
[2019-08-27] MEDS ORDERED: NITROGLYCERIN SL 0.4 MG/TAB TAB SL STA (10:06)
--- NOTE | 2019-08-27 10:11 | XRay Report ---
XR chest 1V portable CLINICAL HISTORY: Chest Pain dyspnea COMPARISON STUDY: 03/19/2019 FINDINGS: The bones soft tissues and hemidiaphragms are normal. The cardiomediastinal silhouette is n ormal. The lungs are clear. The pulmonary vasculature is normal. IMPRESSION: Negative chest. The above report was generated using voice recognition software. It may contain grammatical, syntax or spelling errors. Electronically signed by: Ezequiel Barker M.D. 08/27/2019 10:09 AM
--- NOTE | 2019-08-27 12:23 | Emergency Department Note ---
Entered by Kaye Arambula acting as a scribe for History of Present Illness General Chief complaint: Chest Pain Stated complaint: CHEST PAIN, HIGH BP, COULDNT SLEEP Time Seen by Provider: 08/27/19 09:32 Source: patient History of Present Illness Onset (ago): day(s) (this morning) Location: chest Radiation: neck and other (left shoulder) Pain Consistency: + intermittent Maximum Pain Intensity: 5 Current Pain Intensity: 10 Relieved By: + medication (Nitroglycerin) Associated symptoms: + denies other symptoms (abdominal pain, urinary symptoms, difficulty moving bowels, leg swelling), + nausea/vomiting (Positive nausea. Negative vomiting. ), + shortness of breath and + other (reflux, elevated blood pressure); no cough, no diaphoresis and no fever/chills (fever) The patient is a 58 year old female w/ PMHx acid reflux, anxiety, CAD, HLD, HTN, RI, and 2 cardiac stents who presents to the ED w/ CC of intermittent chest pain starting this morning. The patient states that yesterday all day she had chills. She states that she then started having chest pain in her left chest this morning. She states that it radiated into her left shoulder and her left neck. She states that it was a 10/10 in severity. She reports that she tried taking Nitroglycerin and it offered relief for 2 hours, but it came back again. She states that she took another one with similar affects. She notes that she last took one 3 hours ago. The patient notes that she also took a baby aspirin 5 hours ago. She notes that she also has this burning pain that she thinks may be reflux in her stomach and back. She states that it gets worse with walking and lying flat. The patient complains of elevated blood pressure, nausea, and shortness of breath. The patient notes that she is right handed. The patient denies abdominal pain, urinary symptoms, difficulty moving bowels, a history of blood clots, leg swelling, fever, cough, diaphoresis, vomiting, trauma to her chest, and being a smoker. Home Medications Home Medications Medication Instructions Recorded Confirmed Type aspirin 81 mg PO QAM 08/14/18 08/27/19 History coQ10 (ubiquinol) 100 mg PO QAM 08/14/18 08/27/19 History cholecalciferol (vitamin D3) 5,000 unit PO QAM 03/19/19 08/27/19 History [Vitamin D3] atorvastatin 80 mg tablet 80 mg PO HS #90 tab 04/30/19 08/27/19 Rx clopidogrel 75 mg tablet 75 mg PO QAM #90 tab 04/30/19 08/27/19 Rx lisinopril 2.5 mg tablet 2.5 mg PO QAM #90 tab 04/30/19 08/27/19 Rx metoprolol tartrate 25 mg tablet 25 mg PO Q6H #360 tab 04/30/19 08/27/19 Rx nitroglycerin 0.4 mg sublingual 0.4 mg SL Q5M #30 tab 04/30/19 08/27/19 Rx tablet albuterol sulfate 90 mcg/actuation 1 puffs INH Q4H PRN #8.5 gm 06/12/19 08/27/19 Rx aerosol inhaler pantoprazole 40 mg tablet,delayed 40 mg PO QAM #90 tab 06/12/19 08/27/19 Rx release famotidine 20 mg tablet 20 mg PO DAILY #30 tab 08/08/19 08/27/19 Rx escitalopram oxalate 5 mg PO QAM 08/27/19 08/27/19 History fluticasone propionate [Flovent 2 puffs INH BID 08/27/19 08/27/19 History HFA] Allergies Allergy/AdvReac Type Severity Reaction Status Date / Time sertraline Allergy Intermediate Nausea Verified 08/27/19 09:17 Past Med/Surg History Medical History Acid reflux disease (Resolved) Angina at rest (Resolved) Anxiety disorder (Acute) Arthralgia of multiple sites (Acute) CAD (coronary artery disease) Chest pain (Resolved) Dyslipidemia (Acute) Dystonia (Acute) GERD (gastroesophageal reflux disease) HLD (hyperlipidemia) HTN (hypertension) Left hip pain (Acute) Left leg numbness (Acute) Palpitations (Acute) Past myocardial infarction (Acute) Presence of stent in artery (Resolved) Vitamin D deficiency (Acute) Surgical History H/O heart artery stent LAD stent in 2007 with in-stent thrombosis and STEMI in 2018 S/P arterial stent S/P cardiac catheterization S/P inguinal hernia repair Family History Other Hypertension Social History Preferred Language: British Communication Ability: Effective Visual Impairment: No Limitations Hearing Ability: Normal Iron Miner Required: No Beliefs That Will Affect Care: None marital status: Current Living Situation: Spouse Feels Safe at Home: Yes Smoking Status: Never smoker Second Hand Exposure: No ; Hx Alcohol Use: No Hx Substance Use: No Seatbelt Use: always Review of Systems See HPI for pertinent positives & negatives. and A total of 10 systems reviewed and were otherwise negative Physical Exam Vital Signs Vital Signs - 24 hr 08/27/19 08:41 08/27/19 08:54 08/27/19 09:00 Temperature 36.4 C L Temperature Source Oral Pulse Rate 70 61 59 L Pulse Rate [Apical] Pulse Rate from SpO2 Sensor Respiratory Rate 18 15 13 Respiratory Effort / Characteristics Non-Labored Respiratory Depth Normal Blood Pressure 156/76 H Blood Pressure [Right Arm] Blood Pressure Mean 102 Blood Pressure Mean [Right Arm] Blood Pressure Position Sitting Pulse Oximetry 99 Oxygen Delivery Method Room Air Sepsis Recent Fever Within 48 Hours No Sepsis New/Unexplained Change in Mental Status No Sepsis Action Taken by Nursing No Action Required 08/27/19 09:10 08/27/19 09:20 08/27/19 09:32 Temperature Temperature Source Pulse Rate 61 58 L 74 Pulse Rate [Apical] Pulse Rate from SpO2 Sensor Respiratory Rate 17 15 18 Respiratory Effort / Characteristics Respiratory Depth Blood Pressure Blood Pressure [Right Arm] Blood Pressure Mean Blood Pressure Mean [Right Arm] Blood Pressure Position Pulse Oximetry Oxygen Delivery Method Sepsis Recent Fever Within 48 Hours Sepsis New/Unexplained Change in Mental Status Sepsis Action Taken by Nursing 08/27/19 09:34 08/27/19 09:40 08/27/19 09:50 Temperature Temperature Source Pulse Rate 64 60 Pulse Rate [Apical] Pulse Rate from SpO2 Sensor Respiratory Rate 13 14 Respiratory Effort / Characteristics Respiratory Depth Blood Pressure Blood Pressure [Right Arm] Blood Pressure Mean Blood Pressure Mean [Right Arm] Blood Pressure Position Pulse Oximetry 98 Oxygen Delivery Method Room Air Sepsis Recent Fever Within 48 Hours Sepsis New/Unexplained Change in Mental Status Sepsis Action Taken by Nursing 08/27/19 10:00 08/27/19 10:10 08/27/19 10:13 Temperature Temperature Source Pulse Rate 57 L 57 L 58 L Pulse Rate [Apical] Pulse Rate from SpO2 Sensor 58 L Respiratory Rate 14 14 13 Respiratory Effort / Characteristics Respiratory Depth Blood Pressure 132/66 Blood Pressure [Right Arm] Blood Pressure Mean 83 Blood Pressure Mean [Right Arm] Blood Pressure Position Pulse Oximetry 97 Oxygen Delivery Method Sepsis Recent Fever Within 48 Hours Sepsis New/Unexplained Change in Mental Status Sepsis Action Taken by Nursing 08/27/19 10:20 08/27/19 10:28 08/27/19 11:28 Temperature Temperature Source Pulse Rate 63 60 Pulse Rate [Apical] 58 L Pulse Rate from SpO2 Sensor 65 60 Respiratory Rate 18 15 16 Respiratory Effort / Characteristics Respiratory Depth Blood Pressure 107/70 Blood Pressure [Right Arm] 140/72 Blood Pressure Mean 83 Blood Pressure Mean [Right Arm] 94 Blood Pressure Position Pulse Oximetry 93 95 98 Oxygen Delivery Method Room Air Sepsis Recent Fever Within 48 Hours Sepsis New/Unexplained Change in Mental Status Sepsis Action Taken by Nursing GENERAL: Well appearing, well nourished, NAD, non-toxic. EYE EXAM: Normal conjunctiva. PERRL, no anisocoria and EOM's grossly intact w/o pain. OROPHARYNX: Moist mucous membranes. Grossly normal dentition. NECK: Supple, no nuchal rigidity, no adenopathy, non-tender. No signs of meningismus. LUNGS: Clear to auscultation. Normal chest wall mechanics. HEART: NSR, no MRG. ABDOMEN: Abdomen soft, non-tender, normo-active bowel sounds, no masses, no rebound or guarding. BACK: No CVA TTP. SKIN: No rashes and no bruising. UPPER EXTREMITIES: Upper extremities are grossly normal. LOWER EXTREMITIES: No pitting edema. No calf pain. Negative Homans sign. NEURO EXAM: A&O x3, cranial nerves II-XII grossly intact, normal speech, moves all 4 extremities on command w/o issue. Course Course 0950: The patient was evaluated in room A10. A complete history and physical exam was performed. 951: Orders were placed and the patient was placed on the territory account executive at this time. 1029: I discussed the patient's case with Dr. Burt- [facility] Hospitalist. He will evaluate the patient for further management. 1045: I reevaluated the patient and updated her on her test results. I discussed the treatment plan with her. She verbally agrees and understands. Administered Medications Discontinued Medications Aspirin (Aspirin) 324 mg PO NOW STA Stop: 08/27/19 10:07 Last Admin: 08/27/19 10:13 Dose: 324 mg Documented by: [id number] Nitroglycerin (Nitrostat) 0.4 mg SL NOW STA Stop: 08/27/19 10:07 Last Admin: 08/27/19 10:13 Dose: 0.4 mg Documented by: [id number] Medical Decision Making Differential Diagnosis Differential diagnoses includes but is not limited to acute coronary syndrome, myocardial infarction, pericarditis, pulmonary embolus, aortic dissection, pneumonia, pneumothorax, musculoskeletal, shingles, esophageal. Medical Records Attestation: I reviewed the patient's medical records. Home Medications Current Medication List: was personally reviewed by me Laboratory Data Attestation: I reviewed the patient's lab results. Result diagrams: 08/27/19 08:58 08/27/19 08:58 Lab Results 08/27/19 08/27/19 08/27/19 Range/Units 08:58 08:58 08:58 WBC 6.26 (4.8-10.8) K/uL RBC 4.57 (4.2-5.4) M/uL Hgb 13.5 (12.0-16.0) g/dL Hct 41.1 (37-47) % MCV 89.9 (80-100) fL MCH 29.5 (25-34) pg MCHC 32.8 (32-36) g/dL RDW Std Deviation 46.5 H (36.4-46.3) fL RDW Coeff of [place] 14.2 (11.5-14.5) % Plt Count 243 (130-400) K/uL MPV 10.3 (7.4-10.4) fL Immature Gran % (Auto) 0.0 % Neut % (Auto) 41.0 % Lymph % (Auto) 47.3 % [place] % (Auto) 7.2 % Eos % (Auto) 3.7 % Baso % (Auto) 0.8 % Immature Gran # (Auto) 0.00 (0.00-0.02) K/uL Neut # (Auto) 2.57 (1.4-6.5) K/uL Lymph # (Auto) 2.96 (1.2-3.4) K/uL [place] # (Auto) 0.45 (0.11-0.59) K/uL Eos # (Auto) 0.23 (0-0.5) K/uL Baso # (Auto) 0.05 (0-0.2) K/uL PT 10.1 (9.0-12.0) Seconds INR 1.0 (0.9-1.1) APTT 25.4 (21.0-31.0) Seconds PTT Ratio 0.9 Sodium 139 (136-145) mmol/L Potassium 4.0 (3.5-5.1) mmol/L Chloride 107 (98-107) mmol/L Carbon Dioxide 28 (21-32) mmol/L Anion Gap 4.0 (3-11) BUN 15 (7-18) mg/dl Creatinine 1.00 (0.6-1.2) mg/dl Est Cr Clr Drug Dosing 51.8 ml/min Est GFR ( Amer) 71.9 Est GFR (Non-Af Amer) 62.1 BUN/Creatinine Ratio 14.7 (10-20) Glucose 101 H (70-99) mg/dl Calcium 9.7 (8.5-10.1) mg/dl Total Bilirubin 0.5 (0.2-1) mg/dl AST 16 (15-37) U/L ALT 20 (12-78) U/L Alkaline Phosphatase 70 (45-117) U/L Troponin I < 0.015 (0-0.045) ng/ml Total Protein 7.5 (6.4-8.2) gm/dl Albumin 3.7 (3.4-5.0) gm/dl Globulin 3.8 (2.5-4.0) gm/dl Albumin/Globulin Ratio 1.0 (0.9-2) Lipase 77 (73-393) U/L Imaging Data Radiologist's Impression: Radiology results as stated below per my review and the radiologist's interpretation: XR chest 1V portable CLINICAL HISTORY: Chest Pain dyspnea COMPARISON STUDY: 03/19/2019 FINDINGS: The bones soft tissues and hemidiaphragms are normal. The cardiomediastinal silhouette is normal. The lungs are clear. The pulmonary vasculature is normal. IMPRESSION: Negative chest. The above report was generated using voice recognition software. It may contain grammatical, syntax or spelling errors. Electronically signed by: Ezequiel Barker M.D. 08/27/2019 10:09 AM ECG Data Attestation: I personally reviewed and interpreted this ECG as follows: Indication: + chest pain Rate (beats per minute): 68 Rhythm: + normal sinus ECG Intervals/blocks: + Normal QRS, + Normal CT and + Normal QT-c ECG [place]: + Normal ECG ST segments: + T-wave inversions (hilateral leads); no ST depression and no ST elevation Comparison ECG Date: from (03/19/2019) Change: no significant change (TWI are old) Blood Pressure Blood Pressure Findings: Normal blood pressure Blood Pressure Disposition: did not require urgent referral MDM Narrative The patient is a 58 year old female w/ PMHx acid reflux, anxiety, CAD, HLD, HTN, RI, and 2 cardiac stents who presents to the ED w/ CC of intermittent chest pain starting this morning. Patient was seen and evaluated the bedside. The patient did present with concerns for left-sided chest pain with radiation to the neck and arm. Patient also does complain of some nausea and exertional symptoms. Patient does have a known history of CAD. The patient did state it was improved with nitro and with aspirin. The patient's order the rest of a full dose aspirin as well as 1 nitro. Chest pain resolved. EKG with no acute changes relatively normal blood work. The patient is still moderate risk given her heart score given her known history and concerning story do not believe she would be appropriate for stress right at this time. I did speak the on-call hospitalist agreed to further evaluate treat the patient. Patient was ultimately admitted to the medicine service. Impression & Plan Atypical chest pain, Hx of heart artery stent Discharge Plan Visit Data Chief Complaint: Chest Pain Stated Complaint: CHEST PAIN, HIGH BP, COULDNT SLEEP ED Provider: Driss Clemente Discharge Problem: Atypical chest pain, Hx of heart artery stent Patient Disposition: Being Evaluated by Hospitalist Forms Stand Alone Forms: Call Back Authorization, My [employer] Labs Prescriptions Prescriptions: No Action famotidine 20 mg tablet 20 mg PO DAILY Qty: 30 RF: 5 albuterol sulfate 90 mcg/actuation HFA aerosol inhaler 1 puffs INH Q4H PRN (Reason: shortness of breath or wheezing) Qty: 8.5 RF: 5 pantoprazole 40 mg tablet,delayed release (DR/EC) 40 mg PO QAM Qty: 90 RF: 3 atorvastatin 80 mg tablet 80 mg PO HS Qty: 90 RF: 3 clopidogrel 75 mg tablet 75 mg PO QAM Qty: 90 RF: 3 lisinopril 2.5 mg tablet 2.5 mg PO QAM Qty: 90 RF: 3 metoprolol tartrate 25 mg tablet 25 mg PO Q6H Qty: 360 RF: 3 nitroglycerin 0.4 mg tablet, sublingual 0.4 mg SL Q5M Qty: 30 RF: 5 aspirin 81 mg Tablet,Chewable 81 mg PO QAM RF: 0 coQ10 (ubiquinol) 100 mg Capsule 100 mg PO QAM RF: 0 cholecalciferol (vitamin D3) [Vitamin D3] 5,000 unit Tablet 5,000 unit PO QAM RF: 0 Flovent HFA 110 mcg/actuation HFA aerosol inhaler 2 puffs INH BID RF: 0 escitalopram oxalate 5 mg tablet 5 mg PO QAM RF: 0 Referrals Referrals: Brisa Rodríguez MD [Primary Care Provider] - The scribe's documentation has been prepared under my direction and personally reviewed by me in its entirety. I confirm that the note above accurately reflects all work, treatment, procedures, and medical decision making performed by me.
[2019-08-27] MEDS ORDERED: ACETAMINOPHEN 325 MG TAB PO PRN (13:02)
[2019-08-27] MEDS ORDERED: NITROGLYCERIN SL 0.4 MG/TAB TAB SL PRN (13:02)
[2019-08-27] MEDS ORDERED: MoRPHine SULFATE 2 MG/ML CARP IV PRN (13:02)
--- NOTE | 2019-08-27 13:10 | Medical Student Progress Note ---
Date of Service August 27, 2019 Results & Data Vital Signs (Past 12 Hours) Vital Signs Temp Pulse Pulse Resp BP BP Pulse Ox 08/27/19 11:28 58 L 16 140/72 98 08/27/19 10:28 60 15 107/70 95 08/27/19 10:20 63 18 93 08/27/19 10:13 58 L 13 132/66 97 08/27/19 10:10 57 L 14 08/27/19 10:00 57 L 14 08/27/19 09:50 60 14 08/27/19 09:40 64 13 08/27/19 09:34 98 08/27/19 09:32 74 18 08/27/19 09:20 58 L 15 08/27/19 09:10 61 17 08/27/19 09:00 59 L 13 08/27/19 08:54 61 15 08/27/19 08:41 36.4 C L 70 18 156/76 H 99
--- NOTE | 2019-08-27 13:15 | Medical Student H&P ---
Date of Service August 27, 2019 Assessment & Plan (1) Atypical chest pain: Jessica is a 58 year old with a history of CAD, ischemic cardiomyopathy, HTN and HLD presenting with constant reproducible chest pain since 9pm last night. Initial troponin was negative and EKG showed no ischemic changes. Due to PMHx, patients HEART score showed moderate risk (6/10), so was admitted for observation. Troponins will be cycled q6 x 2. Cardiology is consulted for recommendations on stress testing. (2) Hx of heart artery stent: (3) Presence of stent in LAD coronary artery: History of Present Illness Primary Care Provider: Brisa Rodríguez MD Jessica is a 58 year old female with a history of HTN, hypercholesterolemia, ischemic cardiomyopathy (last EF 40-45% November 2018), CAD (s/p LAD stent placement 2006, pLAD stent placement August 2018) who presents to the ED with chest pain that started last night. Her chest pain started at rest. It has been constant. Rated 10/10 in severity. It radiates to her left shoulder and neck, and is exacerbated with movement and palpation. She took Nitroglycerin last night, which relieved the pain for two hours before returning with 10/10 strength. She took another Nitro tab three hours ago with a similar effect, as well as a baby aspirin 5 hours ago. Jessica reports that she takes regular BP's at home and states that last night it was higher than usual at 160/70). In response she took an additional 50 mg of metoprolol (normal dosage 100 mg) and an additional 2.5 mg dose of lisinopril (normal dosage of 2.5 mg). Jessica reports angina on exertion that is predictable (always present after one flight of stairs). She also has acid reflux and cannot distinguish between angina and reflux. She also states that any change in weather (season, storm, ect) causes chest pain. Allergies Allergy/AdvReac Type Severity Reaction Status Date / Time sertraline Allergy Intermediate Nausea Verified 08/27/19 09:17 Home Medications Home Medications Medication Instructions Recorded Confirmed Type aspirin 81 mg PO QAM 08/14/18 08/27/19 History coQ10 (ubiquinol) 100 mg PO QAM 08/14/18 08/27/19 History cholecalciferol (vitamin D3) 5,000 unit PO QAM 03/19/19 08/27/19 History [Vitamin D3] atorvastatin 80 mg tablet 80 mg PO HS #90 tab 04/30/19 08/27/19 Rx clopidogrel 75 mg tablet 75 mg PO QAM #90 tab 04/30/19 08/27/19 Rx lisinopril 2.5 mg tablet 2.5 mg PO QAM #90 tab 04/30/19 08/27/19 Rx metoprolol tartrate 25 mg tablet 25 mg PO Q6H #360 tab 04/30/19 08/27/19 Rx nitroglycerin 0.4 mg sublingual 0.4 mg SL Q5M #30 tab 04/30/19 08/27/19 Rx tablet albuterol sulfate 90 mcg/actuation 1 puffs INH Q4H PRN #8.5 gm 06/12/19 08/27/19 Rx aerosol inhaler pantoprazole 40 mg tablet,delayed 40 mg PO QAM #90 tab 06/12/19 08/27/19 Rx release famotidine 20 mg tablet 20 mg PO DAILY #30 tab 08/08/19 08/27/19 Rx escitalopram oxalate 5 mg PO QAM 08/27/19 08/27/19 History fluticasone propionate [Flovent 2 puffs INH BID 08/27/19 08/27/19 History HFA] Past Med/Surg History Medical History Acid reflux disease (Resolved) Angina at rest (Resolved) Anxiety disorder (Acute) Arthralgia of multiple sites (Acute) CAD (coronary artery disease) Chest pain (Resolved) Dyslipidemia (Acute) Dystonia (Acute) GERD (gastroesophageal reflux disease) HLD (hyperlipidemia) HTN (hypertension) Left hip pain (Acute) Left leg numbness (Acute) Palpitations (Acute) Past myocardial infarction (Acute) Presence of stent in artery (Resolved) Vitamin D deficiency (Acute) Surgical History H/O heart artery stent LAD stent in 2007 with in-stent thrombosis and STEMI in 2018 S/P arterial stent S/P cardiac catheterization S/P inguinal hernia repair Family History Other Hypertension Social History Preferred Language: Azeri Communication Ability: Effective Visual Impairment: No Limitations Hearing Ability: Normal Ink Blender Required: No Beliefs That Will Affect Care: None marital status: Current Living Situation: Spouse Other Information That Helps Us Care for You: No Feels Safe at Home: Yes Safety Concerns: Feels Safe At This Time Smoking Status: Never smoker Do You Dip or Chew Tobacco: No ; Second Hand Exposure: No ; Tobacco Cessation Education Requested by Patient: No Hx Alcohol Use: No Hx Substance Use: No Seatbelt Use: always Review of Systems All systems reviewed & are unremarkable except as noted in HPI & below + chills and + body aches (Neck and shoulder pain); no sweats and no fatigue no diplopia no facial pain, no dysphagia and no pain with swallowing + chest congestion and + dyspnea on exertion; no cough, no change in sputum, no dyspnea, no hemoptysis, no pain on inspiration, no sputum production and no wheezing + chest pain, + chest pain with activity and + radiating jaw, neck or arm pain; no dyspnea at rest, no orthopnea, no palpitations, no lightheadedness, no syncope, no edema and no claudication no abdominal pain, no nausea, no vomiting, no hematemesis and no change in stools no dysuria, no urinary frequency and no flank pain + neck pain; no radicular pain, no joint pain, no swelling, no limited range of motion and no muscle weakness no rash, no erythema and no change in skin color no falls, no tingling, no numbness, no paresthesia, no lack of coordination, no syncope, no abnormal speech and no confusion no behavioral changes and no depression no fatigue no coagulopathy, no lymphadenopathy, no night sweats and no unexplained weight loss no throat swelling, no wheezing, no cough and no dyspnea Physical Exam Constitutional: WD/WN, vitals as above comfortable; no altered mental status Eyes: PERRL, conjunctivae normal, anicteric sclerae EOM intact bilaterally ENMT: external ear and nose normal, oropharynx normal Ears: no hearing impairment Nose: no external nose abnormality Mouth: no oropharynx abnormality Mallampati Class: IV Throat: uvula midline; no postnasal drainage Neck: trachea midline, no thyromegaly + neck tender; negative Kernig's sign Thyroid: normal thyroid Respiratory: normal respiratory effort, lungs clear to auscultation able to speak in complete sentences; no audible wheezes, no nasal flaring, no stridor and + asymmetric chest movement Auscultation: no crackles, no rales, no rhonchi and no wheezes Cardiovascular: RRR, no murmur, no edema Heart Sounds: normal S1 and normal S2; + abnormal physiologic split S2, no abnormal opening sounds and no cardiac rub Vessels: dorsalis pedis pulses present and popliteal pulses present; no JVD and no carotid bruit Chest (Breasts): Additional Comments: tenderness to palpation Gastrointestinal (Abdomen): normal bowel sounds, soft, nontender, no hepatosplenomegaly Inspection/Auscultation: normal bowel sounds; no abdominal edema Percussion/Palpation: abdomen soft; abdomen nontender Musculoskeletal: no cyanosis or clubbing, extremities motor strength 5/5 Skin: no rashes, warm and dry Neurologic: patellar DTR's 2+ bilat, sensation intact and PERRL, EOMI, accommodation nl, no face palsy, no dysarthria Psychiatric: A+Ox3, euthymic affect Lymphatic: no cervical or axillary lymphadenopathy no lymphadenopathy Results & Data Vital Signs (Past 12 Hours) Vital Signs Temp Pulse Pulse Resp BP BP Pulse Ox 08/27/19 11:28 58 L 16 140/72 98 08/27/19 10:28 60 15 107/70 95 08/27/19 10:20 63 18 93 08/27/19 10:13 58 L 13 132/66 97 08/27/19 10:10 57 L 14 08/27/19 10:00 57 L 14 08/27/19 09:50 60 14 08/27/19 09:40 64 13 08/27/19 09:34 98 08/27/19 09:32 74 18 08/27/19 09:20 58 L 15 08/27/19 09:10 61 17 08/27/19 09:00 59 L 13 08/27/19 08:54 61 15 08/27/19 08:41 36.4 C L 70 18 156/76 H 99 Troponin on admission- 0.015 WBC on admission- 6.26 EKG on admission-Normal Sinus rhythm. Evidence of previous anterolateral infarct, no change since 2018 Code Status & VTE Plan VTE Prophylaxis Plan VTE Prophylaxis will be ordered: Yes
[2019-08-27] MEDS ORDERED: ONDANSETRON INJ 2 MG/ML 2 ML VIAL IV PRN (13:35)
--- NOTE | 2019-08-27 15:14 | Cardiology Consultation ---
Date of Consultation August 27, 2019 Assessment & Plan (1) Atypical chest pain: The patient's chest discomfort is likely musculoskeletal origin. Her presenting complaints can be reproduced with palpation in that same region. Fortunately, her initial troponin is undetectable, and her EKG without acute ischemic changes. Continue to trend troponins. (2) CAD (coronary artery disease): The patient has a history of her proximal LAD stent which was placed in 2006. Cardiac catheterizations performed in 2012 in 2059 noted a patent stent. However, she presented with an acute coronary syndrome in August 2018 and had an in stent restenosis. Another drug-eluting stent was placed in that location. (3) Ischemic cardiomyopathy: An echocardiogram performed in November of this year noting ejection fraction of 40-45 percent. (4) HTN (hypertension): Adequate control on current medical regimen. (5) HLD (hyperlipidemia): Continue high-dose atorvastatin. History of Present Illness Attending Physician: Sabino Burt DO History of Present Illness Mrs. Baxter is a 58-year-old female admitted earlier today with a chest pain syndrome. This consultations were to assist in her management. Of note, the patient is well known to me from both the inpatient and outpatient settings. The patient claims she is in her usual state of health until approximately 11 p.m. last evening. Patient had the abrupt onset of a left-sided chest discomfort in the upper pectoralis region. Patient claimed her chest was very tender to palpation. She became quite concerned and noted her blood pressure be quite elevated. She started using p.r.n. doses of lisinopril and metoprolol tartrate some relief. Approximately 2 a.m., the patient 2 sublingual nitroglycerin tablets and had some relief of her discomfort, however, it recurred within 1-2 hours. Her discomfort persisted and therefore, she presented to emergency room for further care. Currently, patient is resting comfortably med without complaints. Past medical and surgical history 1. Coronary artery disease 2. Proximal LAD stent-2007 3. Proximal LAD stent-August 2018 (in stent restenoses) 4. Mild ischemic [id number]% 5. Moderate mitral regurgitation 6. Hypertension 7. Hypercholesterolemia 8. Asthma 9. Hyperglycemia 10. GERD 11. Vitamin-D deficiency 12. Inguinal hernia repair Social history and lives with her No tobacco or alcohol. Family history No early coronary artery disease Review of systems A 10 point review of systems was undertaken and negative except for that described above. Allergies Allergy/AdvReac Type Severity Reaction Status Date / Time sertraline Allergy Intermediate Nausea Verified 08/27/19 09:17 Home Medications Home Medications Medication Instructions Recorded Confirmed Type aspirin 81 mg PO QAM 08/14/18 08/27/19 History coQ10 (ubiquinol) 100 mg PO QAM 08/14/18 08/27/19 History cholecalciferol (vitamin D3) 5,000 unit PO QAM 03/19/19 08/27/19 History [Vitamin D3] atorvastatin 80 mg tablet 80 mg PO HS #90 tab 04/30/19 08/27/19 Rx clopidogrel 75 mg tablet 75 mg PO QAM #90 tab 04/30/19 08/27/19 Rx lisinopril 2.5 mg tablet 2.5 mg PO QAM #90 tab 04/30/19 08/27/19 Rx metoprolol tartrate 25 mg tablet 25 mg PO Q6H #360 tab 04/30/19 08/27/19 Rx nitroglycerin 0.4 mg sublingual 0.4 mg SL Q5M #30 tab 04/30/19 08/27/19 Rx tablet albuterol sulfate 90 mcg/actuation 1 puffs INH Q4H PRN #8.5 gm 06/12/19 08/27/19 Rx aerosol inhaler pantoprazole 40 mg tablet,delayed 40 mg PO QAM #90 tab 06/12/19 08/27/19 Rx release famotidine 20 mg tablet 20 mg PO DAILY #30 tab 08/08/19 08/27/19 Rx escitalopram oxalate 5 mg PO QAM 08/27/19 08/27/19 History fluticasone propionate [Flovent 2 puffs INH BID 08/27/19 08/27/19 History HFA] Patient History Medical History Acid reflux disease (Resolved) Angina at rest (Resolved) Anxiety disorder (Acute) Arthralgia of multiple sites (Acute) CAD (coronary artery disease) Chest pain (Resolved) Dyslipidemia (Acute) Dystonia (Acute) GERD (gastroesophageal reflux disease) HLD (hyperlipidemia) HTN (hypertension) Left hip pain (Acute) Left leg numbness (Acute) Palpitations (Acute) Past myocardial infarction (Acute) Presence of stent in artery (Resolved) Vitamin D deficiency (Acute) Surgical History H/O heart artery stent LAD stent in 2008 with in-stent thrombosis and STEMI in 2018 S/P arterial stent S/P cardiac catheterization S/P inguinal hernia repair Family History Other Hypertension Social History Preferred Language: Lithuanian Communication Ability: Effective Visual Impairment: No Limitations Hearing Ability: Normal 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 HEENT exam is negative. Neck is supple with full carotid upstrokes. There are no carotid bruits. Jugular venous pressure is flat at 90. There is no thyromegaly. Cardiovascular exam reveals a regular rhythm with a normal S1 and S2. No S3, S4, or murmurs are noted. Chest notes tenderness to palpation in the left upper pectoralis region which duplicates her presenting complaints. Lungs are clear without rales, rhonchi, or wheezes. Abdomen is soft and nontender without bruits. Extremities reveal intact radial artery and posterior tibial pulses bilaterally. There is no peripheral edema. Results & Data Vital Signs (Past 12 Hours) Vital Signs Temp Pulse Pulse Resp BP BP Pulse Ox 08/27/19 13:02 36.7 C 59 L 16 126/72 97 08/27/19 11:28 58 L 16 140/72 98 08/27/19 10:28 60 15 107/70 95 08/27/19 10:20 63 18 93 08/27/19 10:13 58 L 13 132/66 97 08/27/19 10:10 57 L 14 08/27/19 10:00 57 L 14 08/27/19 09:50 60 14 08/27/19 09:40 64 13 08/27/19 09:34 98 08/27/19 09:32 74 18 08/27/19 09:20 58 L 15 08/27/19 09:10 61 17 08/27/19 09:00 59 L 13 08/27/19 08:54 61 15 08/27/19 08:41 36.4 C L 70 18 156/76 H 99 Laboratory Results CBC notes hemoglobin of 13.5, hematocrit of 41.1, white count 6.26, platelet count 240 3 pounds. Electrolytes noted a sodium of 139, potassium 4.0, chloride 1 7, bicarb 28, BUN 15, creatinine 1.0, and a glucose of 101. Initial troponin is undetectable at less than 0.015. Diagnostic Findings EKG notes normal sinus rhythm and an old anterolateral myocardial infarction. This is unchanged from a prior tracing done March 19, 2019. Chest x-ray shows no acute disease. PG Care Time/CCT Total # of Minutes Spent Total Time Spent with Patient: Total time spent is greater than 50% in coordination of care (as documented) at patient's floor/unit and/or counseling patient: (1) CAD (coronary artery disease) Associated angina: with stable angina Coronary Disease-Associated Artery/Lesion type: [place] artery [place] vs. transplanted heart: [place] heart Qualified Code(s): I25.118 - Atherosclerotic heart disease of [place] coronary artery with other forms of angina pectoris (2) HLD (hyperlipidemia) Hyperlipidemia type: unspecified Qualified Code(s): E78.5 - Hyperlipidemia, unspecified (3) HTN (hypertension) Hypertension type: essential hypertension Qualified Code(s): I10 - Essential (primary) hypertension
--- NOTE | 2019-08-27 16:18 | History & Physical Report ---
Date of Service August 27, 2019 Assessment & Plan (1) Atypical chest pain: pain at rest last evening around 9pm constant, radiated to left shoulder and arm reproducible admits to recent h/o some exertional angina EKG without ischemic changes and initial troponin negative will cycle troponin x 2 more sets consult cardiology for recommendations ie stress test tomorrow observation status on PCU (2) Hx of heart artery stent: had STEMI in 2018 due to in stent thrombosis continue aspirin, Plavix, Lipitor (3) Presence of stent in LAD coronary artery: see above (4) HTN (hypertension): BP stable continue on Metoprolol and Lisinopril (5) HLD (hyperlipidemia): continue high dose statin therapy with Lipitor 80mg daily (6) Ischemic cardiomyopathy: examines euvolemic continue metoprolol and lisinopril (7) Anxiety disorder: continue Lexapro History of Present Illness Chief Complaint: My chest hurts Primary Care Provider: Brisa Cardenas MD 58 yo female with history of CAD with stent to the LAD in 2018 (STEMI due to in stent thrombosis) presents with chest pain. The pain started last evening around 9pm, she was at rest at the time. The pain was dull, constant, reproducible over her left chest wall. Radiated to her left shoulder, left arm. Was not associated with diaphoresis, nausea or dyspnea. She noted that moving her left arm made the pain worse. The pain did not resolve all night and she started to become anxious due to her history of STEMI in 2018. She came to the ED for further evaluation. She noted at home that her blood pressure was elevated. She took extra metoprolol and lisinopril to try to lower it. Taking extra medications did not help her pain. Upon arrival in the ED she had an EKG that did not show any ischemic changes. Her initial troponin was negative. CXR was normal. She received Nitro SL and after some time her pain went away. Asked to bring patient in for observation. Of note, she says that when she walks on flat surface she does not get any chest pain. However, she has noticed that when she walks up an incline in her back yard she gets some chest pressure. This has been going on for a few weeks. The chest pressure goes away if she stops walking up an incine. Allergies Allergy/AdvReac Type Severity Reaction Status Date / Time sertraline Allergy Intermediate Nausea Verified 08/27/19 09:17 Home Medications Home Medications Medication Instructions Recorded Confirmed Type aspirin 81 mg PO QAM 08/14/18 08/27/19 History coQ10 (ubiquinol) 100 mg PO QAM 08/14/18 08/27/19 History cholecalciferol (vitamin D3) 5,000 unit PO QAM 03/19/19 08/27/19 History [Vitamin D3] atorvastatin 80 mg tablet 80 mg PO HS #90 tab 04/30/19 08/27/19 Rx clopidogrel 75 mg tablet 75 mg PO QAM #90 tab 04/30/19 08/27/19 Rx lisinopril 2.5 mg tablet 2.5 mg PO QAM #90 tab 04/30/19 08/27/19 Rx metoprolol tartrate 25 mg tablet 25 mg PO Q6H #360 tab 04/30/19 08/27/19 Rx nitroglycerin 0.4 mg sublingual 0.4 mg SL Q5M #30 tab 04/30/19 08/27/19 Rx tablet albuterol sulfate 90 mcg/actuation 1 puffs INH Q4H PRN #8.5 gm 06/12/19 08/27/19 Rx aerosol inhaler pantoprazole 40 mg tablet,delayed 40 mg PO QAM #90 tab 06/12/19 08/27/19 Rx release famotidine 20 mg tablet 20 mg PO DAILY #30 tab 08/08/19 08/27/19 Rx escitalopram oxalate 5 mg PO QAM 08/27/19 08/27/19 History fluticasone propionate [Flovent 2 puffs INH BID 08/27/19 08/27/19 History HFA] Past Med/Surg History Medical History Acid reflux disease (Resolved) Angina at rest (Resolved) Anxiety disorder (Acute) Arthralgia of multiple sites (Acute) CAD (coronary artery disease) Chest pain (Resolved) Dyslipidemia (Acute) Dystonia (Acute) GERD (gastroesophageal reflux disease) HLD (hyperlipidemia) HTN (hypertension) Left hip pain (Acute) Left leg numbness (Acute) Palpitations (Acute) Past myocardial infarction (Acute) Presence of stent in artery (Resolved) Vitamin D deficiency (Acute) Surgical History H/O heart artery stent LAD stent in 2008 with in-stent thrombosis and STEMI in 2018 S/P arterial stent S/P cardiac catheterization S/P inguinal hernia repair Family History Other Hypertension Social History Preferred Language: Bulgarian Communication Ability: Effective Visual Impairment: No Limitations 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 Beliefs That Will Affect Care: None marital status: Current Living Situation: Spouse Other Information That Helps Us Care for You: No Feels Safe at Home: Yes Safety Concerns: Feels Safe At This Time Smoking Status: Never smoker Do You Dip or Chew Tobacco: No ; Second Hand Exposure: No ; Tobacco Cessation Education Requested by Patient: No Hx Alcohol Use: No Hx Substance Use: No Seatbelt Use: always Review of Systems Review of Systems: All systems reviewed & are unremarkable except as noted in HPI & below Constitutional: no fever, no chills, no sweats, no fatigue, no weakness and no anorexia Respiratory: no cough, no dyspnea, no pain on inspiration and no wheezing Cardiovascular: + chest pain, + chest pain at rest, + chest pain with activity and + radiating jaw, neck or arm pain; no dyspnea, no palpitations, no syncope and no edema Gastrointestinal: no abdominal pain, no nausea, no vomiting, no constipation and no diarrhea/loose stools Genitourinary: no dysuria, no difficulty urinating and no urinary frequency Musculoskeletal: no back pain, no joint pain and no muscle weakness Physical Exam Constitutional: WD/WN, vitals as above Eyes: PERRL, conjunctivae normal, anicteric sclerae ENMT: external ear and nose normal, oropharynx normal Neck: trachea midline, no thyromegaly Respiratory: normal respiratory effort, lungs clear to auscultation Cardiovascular: RRR, no murmur, no edema Chest (Breasts): Chest: normal inspection of chest (left chest wall tender to palpation) Gastrointestinal (Abdomen): normal bowel sounds, soft, nontender, no hepatosplenomegaly Musculoskeletal: no cyanosis or clubbing, extremities motor strength 5/5 Skin: no rashes, warm and dry Neurologic: patellar DTR's 2+ bilat, sensation intact and PERRL, EOMI, accommodation nl, no face palsy, no dysarthria Psychiatric: A+Ox3, euthymic affect Lymphatic: no cervical or axillary lymphadenopathy Results & Data Vital Signs (Past 12 Hours) Vital Signs Temp Pulse Pulse Resp BP BP Pulse Ox 08/27/19 16:11 36.8 C 58 L 20 128/65 96 08/27/19 13:02 36.7 C 59 L 16 126/72 97 08/27/19 11:28 58 L 16 140/72 98 08/27/19 10:28 60 15 107/70 95 08/27/19 10:20 63 18 93 08/27/19 10:13 58 L 13 132/66 97 08/27/19 10:10 57 L 14 08/27/19 10:00 57 L 14 08/27/19 09:50 60 14 08/27/19 09:40 64 13 08/27/19 09:34 98 08/27/19 09:32 74 18 08/27/19 09:20 58 L 15 08/27/19 09:10 61 17 08/27/19 09:00 59 L 13 08/27/19 08:54 61 15 08/27/19 08:41 36.4 C L 70 18 156/76 H 99 Laboratory Results Laboratory Results - last 24 hr 08/27/19 08/27/19 08/27/19 08:58 08:58 08:58 WBC 6.26 RBC 4.57 Hgb 13.5 Hct 41.1 MCV 89.9 MCH 29.5 MCHC 32.8 RDW Std Deviation 46.5 H RDW Coeff of [place] 14.2 Plt Count 243 MPV 10.3 Immature Gran % (Auto) 0.0 Neut % (Auto) 41.0 Lymph % (Auto) 47.3 Gila % (Auto) 7.2 Eos % (Auto) 3.7 Baso % (Auto) 0.8 Immature Gran # (Auto) 0.00 Neut # (Auto) 2.57 Lymph # (Auto) 2.96 Gila # (Auto) 0.45 Eos # (Auto) 0.23 Baso # (Auto) 0.05 PT 10.1 INR 1.0 APTT 25.4 PTT Ratio 0.9 Sodium 139 Potassium 4.0 Chloride 107 Carbon Dioxide 28 Anion Gap 4.0 BUN 15 Creatinine 1.00 Est Cr Clr Drug Dosing 51.8 Est GFR ( Amer) 71.9 Est GFR (Non-Af Amer) 62.1 BUN/Creatinine Ratio 14.7 Glucose 101 H Calcium 9.7 Total Bilirubin 0.5 AST 16 ALT 20 Alkaline Phosphatase 70 Troponin I < 0.015 Total Protein 7.5 Albumin 3.7 Globulin 3.8 Albumin/Globulin Ratio 1.0 Lipase 77 08/27/19 08/27/19 15:12 20:37 WBC RBC Hgb Hct MCV MCH MCHC RDW Std Deviation RDW Coeff of [place] Plt Count MPV Immature Gran % (Auto) Neut % (Auto) Lymph % (Auto) Gila % (Auto) Eos % (Auto) Baso % (Auto) Immature Gran # (Auto) Neut # (Auto) Lymph # (Auto) [place]ila # (Auto) Eos # (Auto) Baso # (Auto) PT INR APTT PTT Ratio Sodium Potassium Chloride Carbon Dioxide Anion Gap BUN Creatinine Est Cr Clr Drug Dosing Est GFR ( Amer) Est GFR (Non-Af Amer) BUN/Creatinine Ratio Glucose Calcium Total Bilirubin AST ALT Alkaline Phosphatase Troponin I < 0.015 < 0.015 Total Protein Albumin Globulin Albumin/Globulin Ratio Lipase Diagnostic Findings CXR: negative Medications Administered Current Inpatient Medications Acetaminophen (Tylenol) 650 mg PO Q4H PRN PRN Reason: Pain or Fever Stop: 09/26/19 13:01 Aspirin (Aspirin Chew) 81 mg PO QAM [facility] Stop: 09/27/19 08:59 Atorvastatin Calcium (Lipitor) 80 mg PO HS [facility] Stop: 09/26/19 20:59 Clopidogrel Bisulfate (Plavix) 75 mg PO QAM [facility] Stop: 09/27/19 08:59 Escitalopram Oxalate (Lexapro Tab) 5 mg PO QAM [facility] Stop: 09/27/19 08:59 Famotidine (Pepcid) 20 mg PO DAILY [facility] Stop: 09/27/19 08:59 Fluticasone Propionate (Flovent Hfa 110mch) 2 puffs INH BID [facility] Stop: 09/26/19 20:59 Heparin Sodium (Porcine) (Heparin Sodium (Porcine)) 5,000 units SQ Q8 [facility] Stop: 09/26/19 13:59 Last Admin: 08/27/19 16:59 Dose: Not Given Documented by: Lisinopril (Zestril) 2.5 mg PO QAM [facility] Stop: 09/27/19 08:59 Metoprolol Tartrate (Lopressor) 25 mg PO Q6H [facility] Stop: 09/26/19 13:01 Last Admin: 08/27/19 16:43 Dose: 25 mg Documented by: Morphine Sulfate (Morphine Sulfate) 2 mg IV Q30M PRN PRN Reason: Chest Pain Stop: 09/10/19 13:01 Nitroglycerin (Nitrostat) 0.4 mg SL UD PRN PRN Reason: Chest Pain Stop: 09/26/19 13:01 Ondansetron HCl (Zofran) 4 mg IV Q6H PRN PRN Reason: Nausea Stop: 09/26/19 13:34 Pantoprazole Sodium (Protonix) 40 mg PO QAM [facility] Stop: 09/27/19 08:59 Vitamin D (Vitamin D3) 5,000 units PO QAM [facility] Stop: 09/27/19 08:59 ECG Indication: chest pain Rhythm: normal sinus Findings: no acute ischemic change Code Status & VTE Plan Code Status full code VTE Prophylaxis Plan VTE Prophylaxis will be ordered: Yes PG Care Time/CCT Total # of Minutes Spent Total Time Spent with Patient: Total time spent is greater than 50% in coordination of care (as documented) at patient's floor/unit and/or counseling patient: (1) HTN (hypertension) Hypertension type: essential hypertension Qualified Code(s): I10 - Essential (primary) hypertension (2) HLD (hyperlipidemia) Hyperlipidemia type: unspecified Qualified Code(s): E78.5 - Hyperlipidemia, unspecified
[2019-08-27] MEDS: METOPROLOL TARTRATE 25 MG TAB PO SCH ×2 (16:43→22:18)
[2019-08-27] MEDS: HEPARIN SOD 5,000 UNIT/0.5 ML VIAL SQ SCH ×2 (16:59→22:18)
[2019-08-27] MEDS ORDERED: Nursing to Pharmacy Communication ONE (19:55)
[2019-08-27] MEDS ORDERED: ATORVASTATIN 40 MG TAB PO SCH (21:00)
[2019-08-27] MEDS: FLUTICASONE HFA 110MCG INHALER INH SCH (22:18)
[2019-08-28] MEDS: METOPROLOL TARTRATE 25 MG TAB PO SCH (05:56)
[2019-08-28] MEDS: HEPARIN SOD 5,000 UNIT/0.5 ML VIAL SQ SCH (05:56)
[2019-08-28] MEDS: FLUTICASONE HFA 110MCG INHALER INH SCH (07:35)
[2019-08-28] MEDS ORDERED: FAMOTIDINE 20 MG TAB PO SCH (09:00)
[2019-08-28] MEDS ORDERED: CHOLECALCIFEROL 1,000 UNITS TAB PO SCH (09:00)
[2019-08-28] MEDS ORDERED: CLOPIDOGREL BISULFATE 75 MG TAB PO SCH (09:00)
[2019-08-28] MEDS ORDERED: PANTOprazole 40 MG TAB PO SCH (09:00)
[2019-08-28] MEDS ORDERED: ASPIRIN 81 MG CHEW PO SCH (09:00)
[2019-08-28] MEDS ORDERED: ESCITALOPRAM OXALATE 10 MG TAB PO SCH (09:00)
--- NOTE | 2019-08-28 09:46 | Cardiology Progress Note ---
Date of Service August 28, 2019 Assessment & Plan (1) Atypical chest pain: Chest pain at the time of presentation was likely musculoskeletal. No further cardiac workup indicated at this time. (2) CAD (coronary artery disease): The patient had a proximal LAD stent which was placed in 2006. Cardiac catheterizations performed in 2012 in 2015 noted a patent stent. However, she presented with an acute coronary syndrome in August 2018 and had an in stent restenosis. Another drug-eluting stent was placed. (3) Ischemic cardiomyopathy: Ejection fraction was 40-45% in November 2018. (4) HTN (hypertension): Adequate control on current medical regimen. (5) HLD (hyperlipidemia): Continue high-dose atorvastatin. Subjective The patient is resting comfortably in bed without complaints of chest pain or dyspnea. She is anxious for hospital discharge. Physical Exam Physical Exam: In general this is a well-developed well-nourished white female in no acute distress. HEENT exam is negative. Neck is supple with full carotid upstrokes. There are no carotid bruits. Jugular venous pressure is flat at 90. There is no thyromegaly. Cardiovascular exam reveals a regular rhythm with a normal S1 and S2. No S3, S4, or murmurs are noted. Lungs are clear without rales, rhonchi, or wheezes. Abdomen is soft and nontender without bruits. Extremities reveal intact radial artery and posterior tibial pulses bilaterally. There is no peripheral edema. Results & Data Vital Signs (Past 12 Hours) Vital Signs Temp Pulse Pulse Pulse Resp BP Pulse Ox 08/28/19 09:34 36.9 C 63 72 17 124/69 96 08/28/19 07:52 36.9 C 72 17 124/69 96 08/28/19 03:56 36.8 C 64 20 125/55 L 94 08/28/19 00:00 58 L 08/27/19 22:50 36.8 C 66 18 98/55 L 98 Laboratory Results Troponin I level is less than 0.015 x 3. Diagnostic Findings orchid worker is benign. PG Care Time/CCT Total # of Minutes Spent Total Time Spent with Patient: Total time spent is greater than 50% in coordination of care (as documented) at patient's floor/unit and/or counseling patient: (1) CAD (coronary artery disease) Associated angina: with stable angina Coronary Disease-Associated Artery/Lesion type: [place] artery [place] vs. transplanted heart: [place] heart Qualified Code(s): I25.118 - Atherosclerotic heart disease of [place] coronary artery with other forms of angina pectoris (2) HLD (hyperlipidemia) Hyperlipidemia type: unspecified Qualified Code(s): E78.5 - Hyperlipidemia, unspecified (3) HTN (hypertension) Hypertension type: essential hypertension Qualified Code(s): I10 - Essential (primary) hypertension
--- NOTE | 2019-08-28 09:50 | Discharge Summary ---
Date of Service August 28, 2019 Admission HPI Per Admitting Provider 58 yo female with history of CAD with stent to the LAD in 2018 (STEMI due to in stent thrombosis) presents with chest pain. The pain started last evening around 9pm, she was at rest at the time. The pain was dull, constant, reproducible over her left chest wall. Radiated to her left shoulder, left arm. Was not associated with diaphoresis, nausea or dyspnea. She noted that moving her left arm made the pain worse. The pain did not resolve all night and she started to become anxious due to her history of STEMI in 2018. She came to the ED for further evaluation. She noted at home that her blood pressure was elevated. She took extra metoprolol and lisinopril to try to lower it. Taking extra medications did not help her pain. Upon arrival in the ED she had an EKG that did not show any ischemic changes. Her initial troponin was negative. CXR was normal. She received Nitro SL and after some time her pain went away. Asked to bring patient in for observation. Of note, she says that when she walks on flat surface she does not get any chest pain. However, she has noticed that when she walks up an incline in her back yard she gets some chest pressure. This has been going on for a few weeks. The chest pressure goes away if she stops walking up an incine. Principal Diagnosis Atypical chest pain Discharge Exam Constitutional WD/WN, vitals as above Eyes PERRL, conjunctivae normal, anicteric sclerae ENMT external ear and nose normal, oropharynx normal Neck trachea midline, no thyromegaly Respiratory normal respiratory effort, lungs clear to auscultation Cardiovascular RRR, no murmur, no edema Chest (Breasts) Chest: normal inspection of chest (left chest wall tender to palpation) Gastrointestinal (Abdomen) normal bowel sounds, soft, nontender, no hepatosplenomegaly Musculoskeletal no cyanosis or clubbing, extremities motor strength 5/5 Skin no rashes, warm and dry Neurologic patellar DTR's 2+ bilat, sensation intact and PERRL, EOMI, accommodation nl, no face palsy, no dysarthria Psychiatric A+Ox3, euthymic affect Lymphatic no cervical or axillary lymphadenopathy Discharge Data Allergies Allergy/AdvReac Type Severity Reaction Status Date / Time sertraline Allergy Intermediate Nausea Verified 08/27/19 09:17 Consultations 08/27/19 10:33 ED Decision to Admit Stat 08/27/19 13:48 Consult Cardiology Routine Hospital Course (1) Atypical chest pain: pain at rest last evening around 9pm constant, radiated to left shoulder and arm reproducible admits to recent h/o some exertional angina EKG without ischemic changes troponin x [address] Crews on day of discharge, no need for stress test, patient can be d/c to home will follow up with cardiology as previously scheduled (2) Hx of heart artery stent: had STEMI in 2018 due to in stent thrombosis continue aspirin, Plavix, Lipitor (3) Presence of stent in LAD coronary artery: see above (4) HTN (hypertension): BP stable continue on Metoprolol and Lisinopril (5) HLD (hyperlipidemia): continue high dose statin therapy with Lipitor 80mg daily (6) Ischemic cardiomyopathy: examines euvolemic continue metoprolol and lisinopril (7) Anxiety disorder: continue Lexapro Total Time Total Time Spent Total Time Spent (In Minutes): 20 minutes Discharge Plan Discharge Items Patient Disposition: Home - Self-Care Reason For Visit: CHEST PAIN Discharge Diagnosis: Atypical chest pain, musculoskeletal Condition on Discharge: Good Goals: continue cardiac medications Activity: Resume your previous activity Non-emergency contact: Primary Care Provider and [employer] Call non-emergency contact if: you have any medication questions and your symp toms worsen Follow-up/Referrals: Brisa Rodríguez MD [Primary Care Provider] - 09/03/19 11:40 am (Please, follow up with Dr. Peters on TuesdaySeptember 03 at 11:40 am. *If you need to change this appointment, call the office at [phone].) Diet: Heart Healthy Addtl Attending Provider Instructions: Medications: no changes Chest pain, atypical, likely muscular troponin negative for three sets no ischemic changes on EKG use Ibuprofen as needed for pain, 600mg every 6 hours, take with food Pending Studies at Discharge: No Stand-Alone Forms: Call Back Authorization, Photoblog, Smoking Cessation Medications and DC Order Prescriptions: Continued famotidine 20 mg tablet 20 mg PO DAILY Qty: 30 RF: 5 albuterol sulfate 90 mcg/actuation HFA aerosol inhaler 1 puffs INH Q4H PRN (Reason: shortness of breath or wheezing) Qty: 8.5 RF: 5 pantoprazole 40 mg tablet,delayed release (DR/EC) 40 mg PO QAM Qty: 90 RF: 3 atorvastatin 80 mg tablet 80 mg PO HS Qty: 90 RF: 3 clopidogrel 75 mg tablet 75 mg PO QAM Qty: 90 RF: 3 lisinopril 2.5 mg tablet 2.5 mg PO QAM Qty: 90 RF: 3 metoprolol tartrate 25 mg tablet 25 mg PO Q6H Qty: 360 RF: 3 nitroglycerin 0.4 mg tablet, sublingual 0.4 mg SL Q5M Qty: 30 RF: 5 aspirin 81 mg Tablet,Chewable 81 mg PO QAM RF: 0 coQ10 (ubiquinol) 100 mg Capsule 100 mg PO QAM RF: 0 cholecalciferol (vitamin D3) [Vitamin D3] 5,000 unit Tablet 5,000 unit PO QAM RF: 0 Flovent HFA 110 mcg/actuation HFA aerosol inhaler 2 puffs INH BID RF: 0 escitalopram oxalate 5 mg tablet 5 mg PO QAM RF: 0 Discharge Orders: Discharge Order (Routine); Ordered 08/28/19 Ordered By: Sabino Burt Admission Data Admit Date/Time: 08/27/19 12:06 Attending Provider: Sabino Burt Admit Provider: Sabino Burt Primary Care Provider: Brisa Rodríguez V. Other Providers: Sabino Burt ; Andrew Crews Other Interventions: Discharge Summary Assessment (RN) Last Done: 08/28/19 09:34 DC Date/Time DO NOT enter until pt leaves facility: 08/28/19 09:58
--- NOTE | 2019-08-28 13:26 | Medical Student Progress Note ---
Date of Service August 28, 2019 Assessment & Plan (1) Atypical chest pain: Jessica is a 58 year old with a history of CAD, ischemic cardiomyopathy, HTN and HLD presenting with constant reproducible chest pain. Initial troponin was negative and EKG showed no ischemic changes. Troponins were cycled and showed no trend upwards. Cardiology was consulted and found no indication for a stress test. Today she has no chest pain and is clinically stable for discharge. (2) Hx of heart artery stent: (3) Presence of stent in LAD coronary artery: Subjective Jessica appears non-distressed and comfortable. She states that she feels well today and would like to be discharged. She is not SOB and has no chest pain. Review of Systems Constitutional: + body aches (Neck and shoulder pain); no sweats and no fatigue Respiratory: no cough, no change in sputum, no dyspnea, no hemoptysis, no pain on inspiration, no sputum production and no wheezing Cardiovascular: no dyspnea at rest, no orthopnea, no palpitations, no lightheadedness, no syncope, no edema and no claudication Musculoskeletal: + neck pain; no radicular pain, no joint pain, no swelling, no limited range of motion and no muscle weakness Physical Exam Constitutional: WD/WN, vitals as above comfortable; no altered mental status Eyes: PERRL, conjunctivae normal, anicteric sclerae EOM intact bilaterally ENMT: external ear and nose normal, oropharynx normal Ears: no hearing impairment Nose: no external nose abnormality Mouth: no oropharynx abnormality Mallampati Class: IV Throat: uvula midline; no postnasal drainage Neck: trachea midline, no thyromegaly + neck tender; negative Kernig's sign Thyroid: normal thyroid Respiratory: normal respiratory effort, lungs clear to auscultation able to speak in complete sentences; no audible wheezes, no nasal flaring, no stridor and + asymmetric chest movement Auscultation: no crackles, no rales, no rhonchi and no wheezes Cardiovascular: RRR, no murmur, no edema Heart Sounds: normal S1 and normal S2; + abnormal physiologic split S2, no abnormal opening sounds and no cardiac rub Vessels: dorsalis pedis pulses present and popliteal pulses present; no JVD and no carotid bruit Gastrointestinal (Abdomen): normal bowel sounds, soft, nontender, no hepatosplenomegaly Inspection/Auscultation: normal bowel sounds; no abdominal edema Percussion/Palpation: abdomen soft; abdomen nontender Musculoskeletal: no cyanosis or clubbing, extremities motor strength 5/5 Skin: no rashes, warm and dry Neurologic: patellar DTR's 2+ bilat, sensation intact and PERRL, EOMI, accommodation nl, no face palsy, no dysarthria Psychiatric: A+Ox3, euthymic affect Lymphatic: no cervical or axillary lymphadenopathy no lymphadenopathy Results & Data Vital Signs (Past 12 Hours) Vital Signs Temp Pulse Pulse Resp BP Pulse Ox 08/28/19 09:34 36.9 C 63 72 17 124/69 96 08/28/19 07:52 36.9 C 72 17 124/69 96 08/28/19 03:56 36.8 C 64 20 125/55 L 94 Troponin on 08/27 0.015 Troponin on 08/28 0.015
== END 2019-08-28 09:58 | disposition home or self-care (01) ==
LOC: 2E 08:39 → ED 08:39 → 2E 12:25

== ENCOUNTER 2019-10-18 22:26 | Observation (INO) ==
[2019-10-18] MEDS ORDERED: ALUMINUM/MAGNESIUM SUSP 30 ML UDC PO STA (23:09)
[2019-10-18] MEDS ORDERED: SODIUM CHLORIDE 0.9% 1000ML 1,000 ML IV SCH (23:15)
[2019-10-18 23:29] LABS: Basophils # (auto) 0.05 K/uL (0-0.2); Basophils % (auto) 0.6 %; Eosinophils # (auto) 0.17 K/uL (0-0.5); Eosinophils % (auto) 2.1 %; Hematocrit (blood only) 38.8 % (37-47); Immature Granulocytes # (auto) 0.02 K/uL (0.00-0.02); Immature Granulocytes % (auto) 0.2 %; Lymphocytes # (auto) 3.18 K/uL (1.2-3.4); Lymphocytes % (auto) 39.2 %; Mean Corpuscular Hemoglobin 30.4 pg (25-34); Mean Corpuscular Hgb Conc 33.5 g/dL (32-36); Mean Corpuscular Volume 90.7 fL (80-100); Mean Platelet Volume 10.1 fL (7.4-10.4); Monocytes # (auto) 0.67 K/uL (0.11-0.59); Monocytes % (auto) 8.3 %; Neutrophils # (auto) 4.03 K/uL (1.4-6.5); Neutrophils % (auto) 49.6 %; Platelet Count 244 K/uL (130-400); RDW Coefficient of Variation 13.6 % (11.5-14.5); Red Blood Count 4.28 M/uL (4.2-5.4); White Blood Count 8.12 K/uL (4.8-10.8)
[2019-10-18 23:49] LABS: Alanine Aminotransferase 29 U/L (12-78); Albumin Level 3.3 gm/dl (3.4-5.0); BUN Creatinine Ratio 15.1 (10-20); Blood Urea Nitrogen 13 mg/dl (7-18); Calcium 9.2 mg/dl (8.5-10.1); Carbon Dioxide 28 mmol/L (21-32); Chloride 106 mmol/L (98-107); Creatinine Clr Calc Pharmacy 59.1 ml/min; Est GFR (African American) 87.5; Est GFR (Non-African American) 75.5; Glucose 110 mg/dl (70-99); Lipase 79 U/L (73-393); Magnesium 1.9 mg/dl (1.8-2.4); Potassium 4.1 mmol/L (3.5-5.1); Sodium 139 mmol/L (136-145)
[2019-10-19] LABS: Albumin Globulin Ratio 0.8 (0.9-2); Alkaline Phosphatase 61 U/L (45-117); Aspartate Aminotransferase 18 U/L (15-37); Bilirubin,Total 0.3 mg/dl (0.2-1); Globulin 3.9 gm/dl (2.5-4.0); NT Pro B Type Natriuretic Pept 1426 pg/ml (0-900); Total Protein 7.2 gm/dl (6.4-8.2); Troponin I < 0.015 ng/ml (0-0.045)
--- NOTE | 2019-10-19 00:39 | Emergency Department Note ---
Entered by Vlad Stoner acting as a scribe for History of Present Illness General Chief complaint: Hypertension Stated complaint: HIGH BLOOD PRESSURE, CHEST PAIN, S/P SURGERY 10/15 Time Seen by Provider: 10/18/19 22:50 Source: patient History of Present Illness Onset (ago): day(s) (yesterday morning) Pain Consistency: + constant Quality: + other (hypertension) Relieved By: + other (sitting up) Exacerbated By: + other (lying flat) Associated symptoms: + other (Positive for chest tightness, burning in her arms/back, and lightheadedness. Negative for headaches, vision changes, leg swelling, SOB, changes in her bowels, and fever.) The patient is a 58 year old female who presents to the emergency department with complaints of constant hypertension beginning yesterday morning. The patient states that she had a hysterectomy at [facility] and was discharged three days ago. She notes that following the surgery, she has had she has been hypertensive. She reports that she was also hypertensive before surgery. The patient states that she has been taking her usual medication, but she notes that her blood pressure has not been going down. She notes that she has been having episodes of hypertension every day for the last month. She reports that her hypertension usually occurs at night and wakes her up from sleep. She also complains of chest tightness, burning in her arms/back, and lightheadedness. The patient states that her chest tightness is new. She notes that she is lightheaded when she wakes up. She reports that her symptoms are better when she sits up, and she notes that they are worse when she lies flat. She denies any headaches, vision changes, leg swelling, SOB, changes in her bowels, and fever. The patient states that she has a history of two cardiac stents and two previous MIs. She notes that she has a family history of hypertension. Patient states she does have medications at home for this which she did try prior to arrival but they did not work. Patient feels she has been recovering well from her hysterectomy. Patient states pain is controlled, no fevers. 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 States she has had 2 prior heart attacks and has 2 stents. Home Medications Home Medications Medication Instructions Recorded Confirmed Type aspirin 81 mg PO QAM 08/14/18 10/19/19 History coQ10 (ubiquinol) 100 mg PO QAM 08/14/18 10/19/19 History cholecalciferol (vitamin D3) 5,000 unit PO QAM 03/19/19 10/19/19 History [Vitamin D3] atorvastatin 80 mg tablet 80 mg PO HS #90 tab 04/30/19 10/19/19 Rx clopidogrel 75 mg tablet 75 mg PO QAM #90 tab 04/30/19 10/19/19 Rx lisinopril 2.5 mg tablet 2.5 mg PO QAM #90 tab 04/30/19 10/19/19 Rx metoprolol tartrate 25 mg tablet 25 mg PO Q6H #360 tab 04/30/19 10/19/19 Rx nitroglycerin 0.4 mg sublingual 0.4 mg SL Q5M #30 tab 04/30/19 10/19/19 Rx tablet albuterol sulfate 90 mcg/actuation 1 puffs INH Q4H PRN #8.5 gm 06/12/19 10/19/19 Rx aerosol inhaler pantoprazole 40 mg tablet,delayed 40 mg PO QAM #90 tab 06/12/19 10/19/19 Rx release Flovent HFA 2 puffs INH BID 08/27/19 10/19/19 History escitalopram oxalate 5 mg PO QAM 08/27/19 10/19/19 History famotidine 20 mg tablet 20 mg PO BID #60 tab 09/03/19 10/19/19 Rx Allergies Allergy/AdvReac Type Severity Reaction Status Date / Time sertraline Allergy Intermediate Nausea Verified 10/19/19 01:40 Past Med/Surg History Medical History (Updated 10/19/19 @ 02:10 by Vlad Stoner) Acid reflux disease (Resolved) Angina at rest (Resolved) Anxiety disorder Arthralgia of multiple sites (Acute) CAD (coronary artery disease) Chest pain Dyslipidemia (Acute) Dystonia (Acute) GERD (gastroesophageal reflux disease) HLD (hyperlipidemia) HTN (hypertension) Left hip pain (Acute) Left leg numbness (Acute) Palpitations (Acute) Past myocardial infarction (Acute) Presence of stent in artery (Resolved) Vitamin D deficiency (Acute) Surgical History (Updated 10/18/19 @ 23:29 by Vlad Stoner) H/O bilateral salpingo-oophorectomy H/O heart artery stent LAD stent in 2008 with in-stent thrombosis and STEMI in 2018 H/O: hysterectomy S/P arterial stent S/P cardiac catheterization S/P inguinal hernia repair Social History Preferred Language: Malaysian Communication Ability: Effective Visual Impairment: No Limitations Hearing Ability: Normal 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 and A total of 10 systems reviewed and were otherwise negative Physical Exam Vital Signs Vital Signs - 24 hr 10/18/19 22:28 10/18/19 23:43 10/19/19 00:50 Temperature 36.4 C L Temperature Source Oral Pulse Rate 76 Pulse Rate [Right Finger] 62 76 Respiratory Rate 16 18 Respiratory Effort / Characteristics Non-Labored Spontaneous Respiratory Depth Normal Blood Pressure 159/85 H Blood Pressure [Left Arm] 132/75 142/82 H Blood Pressure Mean 109 Blood Pressure Mean [Left Arm] 94 102 Blood Pressure Position Sitting Pulse Oximetry 97 96 97 Oxygen Delivery Method Room Air Room Air Sepsis Recent Fever Within 48 Hours No Sepsis Action Taken by Nursing No Action Required 10/19/19 01:10 10/19/19 01:56 Temperature Temperature Source Pulse Rate Pulse Rate [Right Finger] 67 71 Respiratory Rate 19 18 Respiratory Effort / Characteristics Respiratory Depth Blood Pressure Blood Pressure [Left Arm] 132/73 124/80 Blood Pressure Mean Blood Pressure Mean [Left Arm] 92 94 Blood Pressure Position Pulse Oximetry 96 97 Oxygen Delivery Method Sepsis Recent Fever Within 48 Hours Sepsis Action Taken by Nursing GENERAL: alert, well appearing, well nourished, no distress, non-toxic EYE EXAM: normal conjunctiva, PERRL and EOM's grossly intact OROPHARYNX: no exudate, no erythema, lips, buccal mucosa, and tongue normal and mucous membranes are moist NECK: supple, no nuchal rigidity, no adenopathy, non-tender LUNGS: Clear to auscultation. Normal chest wall mechanics HEART: no murmurs, S1 normal and S2 normal ABDOMEN: abdomen soft, non-tender, normo-active bowel sounds, no masses, no rebound or guarding. Four laparoscopic incision sites noted, sutures intact, no drainage or bleeding, no dehiscence, no evidence of surrounding erythema. BACK: Back is symmetrical on inspection and there is no deformity, no midline tenderness, no CVA tenderness. SKIN: no rashes and no bruising UPPER EXTREMITIES: upper extremities are grossly normal. FROM, nml pulses b/l. LOWER EXTREMITIES: No pitting edema. FROM, nml pulses b/l. NEURO EXAM: Normal sensorium, cranial nerves II-XII grossly intact, normal speech, no gross weakness of arms, no gross weakness of legs. Course Course 2251: The patient was evaluated in room C1. A complete history and physical exam was performed. 230: Per review of EMR, the patient had a hysterectomy and bilateral salpingo oophorectomy. She was discharged from [facility] three days ago. The patient had an LAD lesion in 2006 and an in stent restenosis in 2018. 0039: I reevaluated and updated the patient. Her symptoms are better but not gone. 0118: I rechecked the patient. Her pain is still coming and going. She is in agreement with the plan. 0157: Upon reevaluation, the patient is stable. I discussed the findings and the treatment plan with the patient. She expresses agreement and understanding. I spoke with Dr. Gibbs of the [facility] Hospitalist Service. The patient will be evaluated for further management. Reevaluation(s) Reevaluation #1: I reviewed the patient's case with Dr. Gibbs - Hospitalist, [facility]. He will evaluate the patient for further management. Time: 01:57 Administered Medications Sodium Chloride (Nss 1000ml) 1,000 mls @ 200 mls/hr IV .Q5H DARY Stop: 11/17/19 23:14 Last Admin: 10/18/19 23:22 Dose: 200 mls/hr Documented by: [id number] Discontinued Medications Al Hydrox/Mg Hydrox/Simethicone (Maalox) 15 ml PO NOW STA Stop: 10/18/19 23:10 Last Admin: 10/18/19 23:22 Dose: 15 ml Documented by: [id number] Aspirin (Ecotrin) 325 mg PO NOW STA Stop: 10/19/19 01:20 Last Admin: 10/19/19 01:31 Dose: 325 mg Documented by: [id number] Nitroglycerin (Nitro-Bid 2%) 1 inch EXT NOW STA Stop: 10/19/19 00:45 Last Admin: 10/19/19 00:50 Dose: 1 inch Documented by: [id number] Medical Decision Making Differential Diagnosis Differential diagnoses includes but is not limited to acute coronary syndrome, myocardial infarction, pericarditis, pulmonary embolus, aortic dissection, pneumonia, pneumothorax, musculoskeletal, shingles, esophageal. Medical Records Attestation: I reviewed the patient's medical records. Home Medications Current Medication List: was personally reviewed by me Laboratory Data Attestation: I reviewed the patient's lab results. Result diagrams: 10/18/19 23:15 10/18/19 23:15 Lab Results 10/18/19 10/18/19 Range/Units 23:15 23:15 WBC 8.12 (4.8-10.8) K/uL RBC 4.28 (4.2-5.4) M/uL Hgb 13.0 (12.0-16.0) g/dL Hct 38.8 (37-47) % MCV 90.7 (80-100) fL MCH 30.4 (25-34) pg MCHC 33.5 (32-36) g/dL RDW Std Deviation 45.0 (36.4-46.3) fL RDW Coeff of [place] 13.6 (11.5-14.5) % Plt Count 244 (130-400) K/uL MPV 10.1 (7.4-10.4) fL Immature Gran % (Auto) 0.2 % Neut % (Auto) 49.6 % Lymph % (Auto) 39.2 % [place] % (Auto) 8.3 % Eos % (Auto) 2.1 % Baso % (Auto) 0.6 % Immature Gran # (Auto) 0.02 (0.00-0.02) K/uL Neut # (Auto) 4.03 (1.4-6.5) K/uL Lymph # (Auto) 3.18 (1.2-3.4) K/uL [place] # (Auto) 0.67 H (0.11-0.59) K/uL Eos # (Auto) 0.17 (0-0.5) K/uL Baso # (Auto) 0.05 (0-0.2) K/uL Sodium 139 (136-145) mmol/L Potassium 4.1 (3.5-5.1) mmol/L Chloride 106 (98-107) mmol/L Carbon Dioxide 28 (21-32) mmol/L Anion Gap 5.0 (3-11) BUN 13 (7-18) mg/dl Creatinine 0.85 (0.6-1.2) mg/dl Est Cr Clr Drug Dosing 59.1 ml/min Est GFR ( Amer) 87.5 Est GFR (Non-Af Amer) 75.5 BUN/Creatinine Ratio 15.1 (10-20) Glucose 110 H (70-99) mg/dl Calcium 9.2 (8.5-10.1) mg/dl Magnesium 1.9 (1.8-2.4) mg/dl Total Bilirubin 0.3 (0.2-1) mg/dl AST 18 (15-37) U/L ALT 29 (12-78) U/L Alkaline Phosphatase 61 (45-117) U/L Troponin I < 0.015 (0-0.045) ng/ml NT-Pro-B Natriuret Pep 1426 H (0-900) pg/ml Total Protein 7.2 (6.4-8.2) gm/dl Albumin 3.3 L (3.4-5.0) gm/dl Globulin 3.9 (2.5-4.0) gm/dl Albumin/Globulin Ratio 0.8 L (0.9-2) Lipase 79 (73-393) U/L TSH 1.840 (0.300-4.500) uIu/ml Imaging Data My Impression: X-ray: I interpreted the following studies. Chest: A single view study of the chest was reviewed and was negative for cardiomegaly, focal infiltrate, effusion, pulmonary edema, or wide mediastinum. ECG Data Attestation: I personally reviewed and interpreted this ECG as follows: Indication: + chest pain Rate (beats per minute): 66 Rhythm: + sinus rhythm ECG [place]: + Normal ECG ST segments: + T-wave inversions (in AVL); no ST depression and no ST elevation ECG Findings: no PACs and no PVCs Comparison ECG Date: from (08/28/2019) Change: no significant change Additional Comments: Normal intervals. Blood Pressure Blood Pressure Findings: Elevated blood pressure Blood Pressure Disposition: further management by hospitalist KEVIN Hernandez Patient here well-appearing despite complaints. Patient with complicated past medical history including known coronary artery disease and 2 prior stents. Patient does take medication for hypertension at baseline. Patient had a recurrence of the same type of chest tightness/squeezing/burning that she has been having intermittently for quite some time, even prior to her recent hys terectomy. I do not suspect occult infectious etiology, dissection, PE, pericardial effusion, perforation, GI bleed, or acute postsurgical complication. Unclear if there is a component of hypertensive urgency. Patient relates there has been some suspicion of GERD contributing to her symptoms as they are typically worse at night. Patient already takes 2 different acid reducing medications. Patient had no improvement in pain with Maalox here, but pain did improve with additional nitro. Case discussed with hospitalist for additional evaluation and management. Patient was made aware of all results and was in agreement with plan. Patient's blood pressure here was improved without additional antihypertensive meds. I do not suspect hypertensive emergency. Impression & Plan Hypertension, Atypical chest pain Discharge Plan Visit Data Chief Complaint: Hypertension Stated Complaint: HIGH BLOOD PRESSURE, CHEST PAIN, S/P SURGERY 10/15 ED Provider: Concepcion Jenkins Discharge Problem: Hypertension, Atypical chest pain Patient Disposition: Being Evaluated by Hospitalist Forms Stand Alone Forms: My [facility] [place] [facility] Prescriptions Prescriptions: No Action famotidine 20 mg tablet 20 mg PO BID Qty: 60 RF: 5 albuterol sulfate 90 mcg/actuation HFA aerosol inhaler 1 puffs INH Q4H PRN (Reason: shortness of breath or wheezing) Qty: 8.5 RF: 5 pantoprazole 40 mg tablet,delayed release (DR/EC) 40 mg PO QAM Qty: 90 RF: 3 atorvastatin 80 mg tablet 80 mg PO HS Qty: 90 RF: 3 clopidogrel 75 mg tablet 75 mg PO QAM Qty: 90 RF: 3 lisinopril 2.5 mg tablet 2.5 mg PO QAM Qty: 90 RF: 3 metoprolol tartrate 25 mg tablet 25 mg PO Q6H Qty: 360 RF: 3 nitroglycerin 0.4 mg tablet, sublingual 0.4 mg SL Q5M Qty: 30 RF: 5 aspirin 81 mg Tablet,Chewable 81 mg PO QAM RF: 0 coQ10 (ubiquinol) 100 mg Capsule 100 mg PO QAM RF: 0 cholecalciferol (vitamin D3) [Vitamin D3] 5,000 unit Tablet 5,000 unit PO QAM RF: 0 Flovent HFA 110 mcg/actuation HFA aerosol inhaler 2 puffs INH BID RF: 0 escitalopram oxalate 5 mg tablet 5 mg PO QAM RF: 0 Referrals Referrals: Brisa Rodríguez MD [Primary Care Provider] - Risk - HEART Scoring HEART Score for Major Cardiac Events History: Moderately Suspicious EKG: Normal Age: 45-64 Years of Age Risk Factors: >2 Risk Factors Initial Troponin: Normal Limit Total Points: 4 Risk Level: Moderate Risk for Major Adverse Cardiac Event HEART Score Interpretation: Score interpretation (as per derivation study): HEART Adverse Cardiac Score Event Risk Management 0-3 0.9-1.7% In the HEART Score study, these patients were discharged. 4-6 12-16.6% In the HEART Score study, these patients were admitted to the hospital. 7-10 50-65% In the HEART Score study, these patients were candidates for early invasive measurements. Original Source: 1. Duncan AJ, Derik BE, Nathalie KRYSTYNA. Chest pain in the emergency room: value of the HEART score. Neth Heart J. 2008; 16(6):191-6. Discharge Problem: Hypertension Qualifiers: Hypertension type: unspecified Qualified Code(s): I10 - Essential (primary) h ypertension The scribe's documentation has been prepared under my direction and personally reviewed by me in its entirety. I confirm that the note above accurately reflects all work, treatment, procedures, and medical decision making performed by me.
[2019-10-19] MEDS ORDERED: NITROGLYCERIN 2% OINTMENT 30GM TUBE EXT STA (00:44)
[2019-10-19] MEDS ORDERED: ASPIRIN 325 MG ECTAB PO STA (01:19)
--- NOTE | 2019-10-19 02:25 | History & Physical Report ---
Date of Service October 19, 2019 Assessment & Plan (1) Atypical chest pain: OBS tele Trend trops I ordered CTA chest as she recently had hysterectomy. Prelim report shows no PE. (2) Hypertension: Reported systolic 160's at home Currently she is down to sys 124. Continue lisinopril (3) CAD (coronary artery disease): Consult cardiology. Sees Dr. Crews as outpatient. Continue aspirin, Plavix, and metoprolol (4) GERD (gastroesophageal reflux disease): Continue famotidine and pantoprazole (5) Dyslipidemia: Continue atorvastatin History of Present Illness 58 y/o female presented to the ED with elevated BP at home with systolic in the 160's with associated intermittent chest pressure that she describes as a "squeezing". She also complains of a burning sensation in her arms/back and lightheadedness. She reports having had a hysterectomy 3 days prior. She denies headache, leg swelling, SOB, F/C, cough, N/V/D. The patient states that she has a history of two cardiac stents and two previous MIs. Primary Care Provider: Brisa Rodríguez MD Allergies Allergy/AdvReac Type Severity Reaction Status Date / Time sertraline Allergy Intermediate Nausea Verified 10/19/19 01:40 Home Medications Home Medications Medication Instructions Recorded Confirmed Type aspirin 81 mg PO QAM 08/14/18 10/19/19 History coQ10 (ubiquinol) 100 mg PO QAM 08/14/18 10/19/19 History cholecalciferol (vitamin D3) 5,000 unit PO QAM 03/19/19 10/19/19 History [Vitamin D3] atorvastatin 80 mg tablet 80 mg PO HS #90 tab 04/30/19 10/19/19 Rx clopidogrel 75 mg tablet 75 mg PO QAM #90 tab 04/30/19 10/19/19 Rx lisinopril 2.5 mg tablet 2.5 mg PO QAM #90 tab 04/30/19 10/19/19 Rx metoprolol tartrate 25 mg tablet 25 mg PO Q6H #360 tab 04/30/19 10/19/19 Rx nitroglycerin 0.4 mg sublingual 0.4 mg SL Q5M #30 tab 04/30/19 10/19/19 Rx tablet albuterol sulfate 90 mcg/actuation 1 puffs INH Q4H PRN #8.5 gm 06/12/19 10/19/19 Rx aerosol inhaler pantoprazole 40 mg tablet,delayed 40 mg PO QAM #90 tab 06/12/19 10/19/19 Rx release Flovent HFA 2 puffs INH BID 08/27/19 10/19/19 History escitalopram oxalate 5 mg PO QAM 08/27/19 10/19/19 History famotidine 20 mg tablet 20 mg PO BID #60 tab 09/03/19 10/19/19 Rx Past Med/Surg History Medical History Acid reflux disease (Resolved) Angina at rest (Resolved) Anxiety disorder Arthralgia of multiple sites (Acute) CAD (coronary artery disease) Chest pain Dyslipidemia (Acute) Dystonia (Acute) GERD (gastroesophageal reflux disease) HLD (hyperlipidemia) HTN (hypertension) Left hip pain (Acute) Left leg numbness (Acute) Palpitations (Acute) Past myocardial infarction (Acute) Presence of stent in artery (Resolved) Vitamin D deficiency (Acute) Surgical History H/O bilateral salpingo-oophorectomy H/O heart artery stent LAD stent in 2008 with in-stent thrombosis and STEMI in 2018 H/O: hysterectomy S/P arterial stent S/P cardiac catheterization S/P inguinal hernia repair Family History Other Hypertension Social History Preferred Language: Persian Communication Ability: Effective Visual Impairment: No Limitations Hearing Ability: Normal General Foreman Required: No Beliefs That Will Affect Care: None marital status: Current Living Situation: Spouse Other Information That Helps Us Care for You: No Feels Safe at Home: Yes Safety Concerns: Feels Safe At This Time Smoking Status: Unknown if ever smoked Hx Alcohol Use: No Hx Substance Use: No Seatbelt Use: always Review of Systems Review of Systems: All systems reviewed & are unremarkable except as noted in HPI & below Physical Exam Physical Exam: General- adult female, NAD Head- atraumatic Eyes- PERRL, EOMI, anicteric ENT- oropharynx clear Neck- supple, no JVD, no adenopathy, no thyromegaly. Lungs- CTA b/l no R/R/W. Heart- regular rhythm; no murmur, no gallop, no rub appreciated Abdomen- normal bowel sounds, soft, nontender. Extremities- no pretibial edema, no calf tenderness; peripheral pulses intact Neuro- alert, oriented x 3; PERRL, EOMI; curtain cutter II-XII grossly intact, non-focal. Skin- warm & dry Results & Data Vital Signs (Past 12 Hours) Vital Signs Temp Pulse Pulse Resp BP BP Pulse Ox 10/19/19 01:56 71 18 124/80 97 10/19/19 01:10 67 19 132/73 96 10/19/19 00:50 76 142/82 H 97 10/18/19 23:43 62 18 132/75 96 10/18/19 22:28 36.4 C L 76 16 159/85 H 97 Laboratory Results Laboratory Results WBC 8.12 K/uL (4.8-10.8) 10/18/19 23:15 RBC 4.28 M/uL (4.2-5.4) 10/18/19 23:15 Hgb 13.0 g/dL (12.0-16.0) 10/18/19 23:15 Hct 38.8 % (37-47) 10/18/19 23:15 MCV 90.7 fL (80-100) 10/18/19 23:15 MCH 30.4 pg (25-34) 10/18/19 23:15 MCHC 33.5 g/dL (32-36) 10/18/19 23:15 RDW Std Deviation 45.0 fL (36.4-46.3) 10/18/19 23:15 RDW Coeff of [place] 13.6 % (11.5-14.5) 10/18/19 23:15 Plt Count 244 K/uL (130-400) 10/18/19 23:15 MPV 10.1 fL (7.4-10.4) 10/18/19 23:15 Immature Gran % (Auto) 0.2 % 10/18/19 23:15 Neut % (Auto) 49.6 % 10/18/19 23:15 Lymph % (Auto) 39.2 % 10/18/19 23:15 [place] % (Auto) 8.3 % 10/18/19 23:15 Eos % (Auto) 2.1 % 10/18/19 23:15 Baso % (Auto) 0.6 % 10/18/19 23:15 Immature Gran # (Auto) 0.02 K/uL (0.00-0.02) 10/18/19 23:15 Neut # (Auto) 4.03 K/uL (1.4-6.5) 10/18/19 23:15 Lymph # (Auto) 3.18 K/uL (1.2-3.4) 10/18/19 23:15 [place] # (Auto) 0.67 K/uL (0.11-0.59) H 10/18/19 23:15 Eos # (Auto) 0.17 K/uL (0-0.5) 10/18/19 23:15 Baso # (Auto) 0.05 K/uL (0-0.2) 10/18/19 23:15 Sodium 139 mmol/L (136-145) 10/18/19 23:15 Potassium 4.1 mmol/L (3.5-5.1) 10/18/19 23:15 Chloride 106 mmol/L (98-107) 10/18/19 23:15 Carbon Dioxide 28 mmol/L (21-32) 10/18/19 23:15 Anion Gap 5.0 (3-11) 10/18/19 23:15 BUN 13 mg/dl (7-18) 10/18/19 23:15 Creatinine 0.85 mg/dl (0.6-1.2) 10/18/19 23:15 Est Cr Clr Drug Dosing 59.1 ml/min 10/18/19 23:15 Est GFR ( Amer) 87.5 10/18/19 23:15 Est GFR (Non-Af Amer) 75.5 10/18/19 23:15 BUN/Creatinine Ratio 15.1 (10-20) 10/18/19 23:15 Glucose 110 mg/dl (70-99) H 10/18/19 23:15 Calcium 9.2 mg/dl (8.5-10.1) 10/18/19 23:15 Magnesium 1.9 mg/dl (1.8-2.4) 01/30/20 23:15 Total Bilirubin 0.3 mg/dl (0.2-1) 10/18/19 23:15 AST 18 U/L (15-37) 10/18/19 23:15 ALT 29 U/L (12-78) 10/18/19 23:15 Alkaline Phosphatase 61 U/L (45-117) 10/18/19 23:15 Troponin I < 0.015 ng/ml (0-0.045) 10/18/19 23:15 NT-Pro-B Natriuret Pep 1426 pg/ml (0-900) H 10/18/19 23:15 Total Protein 7.2 gm/dl (6.4-8.2) 10/18/19 23:15 Albumin 3.3 gm/dl (3.4-5.0) L 10/18/19 23:15 Globulin 3.9 gm/dl (2.5-4.0) 10/18/19 23:15 Albumin/Globulin Ratio 0.8 (0.9-2) L 10/18/19 23:15 Lipase 79 U/L (73-393) 10/18/19 23:15 TSH 1.840 uIu/ml (0.300-4.500) 10/18/19 23:15 Code Status & VTE Plan VTE Prophylaxis Plan VTE Prophylaxis will be ordered: Yes PG Care Time/CCT Total # of Minutes Spent Total Time Spent: 55 Total Time Spent with Patient: Total time spent is greater than 50% in coordination of care (as documented) at patient's floor/unit and/or counseling patient: Coding Level of Care Code 61366 OBS Care - Level 3 Diagnoses Atypical chest pain R07.89 Hypertension I10 Hypertension type: unspecified CAD (coronary artery disease) I25.10 GERD (gastroesophageal reflux disease) K21.9 Esophagitis presence: esophagitis presence not specified Dyslipidemia E78.5 (1) GERD (gastroesophageal reflux disease) Esophagitis presence: esophagitis presence not specified Qualified Code(s): K21.9 - Gastro-esophageal reflux disease without esophagitis (2) Hypertension Hypertension type: unspecified Qualified Code(s): I10 - Essential (primary) hypertension
[2019-10-19] MEDS ORDERED: LORazepam 1 MG/2 ML VIAL IV STA (02:39)
[2019-10-19] MEDS ORDERED: OPTIRAY 320 125ml IV PRN ×2 (02:46→03:06)
[2019-10-19] MEDS ORDERED: KETOROLAC TROMETHAMINE 15 MG/ML VIAL IV PRN (03:26)
[2019-10-19] MEDS ORDERED: MoRPHine SULFATE 2 MG/ML CARP IV PRN (03:26)
[2019-10-19] MEDS ORDERED: ONDANSETRON INJ 2 MG/ML 2 ML VIAL IV PRN (03:26)
[2019-10-19] MEDS ORDERED: ALBUTEROL 0.083% NEBU SOLN 3 ML VIAL NEB PRN (03:26)
[2019-10-19] MEDS ORDERED: ACETAMINOPHEN 325 MG TAB PO PRN (03:26)
[2019-10-19] MEDS ORDERED: NITROGLYCERIN SL 0.4 MG/TAB TAB SL PRN (03:26)
[2019-10-19] MEDS: METOPROLOL TARTRATE 25 MG TAB PO SCH ×2 (06:19→12:21)
--- NOTE | 2019-10-19 06:33 | XRay Report ---
XR chest 1V portable CLINICAL HISTORY: Atypical chest pain. Hypertension. COMPARISON STUDY: 08/27/2019 FINDINGS: The cardiac and mediastinal contours are normal. There is no evidence of focal pulmonary co nsolidation. There is no evidence of failure. No pleural effusions are visualized.[ IMPRESSION: No active disease in the chest. ACT 112: Negative or not required by law. Electronically signed by: Cole Knapp M.D. 10/19/2019 6:31 AM
--- NOTE | 2019-10-19 06:57 | CT Scan Report ---
CT ANGIOGRAM OF THE CHEST CLINICAL HISTORY: Atypical chest pain. Possible pulmonary embolism COMPARISON STUDY: Chest x-ray dated 10/18/2019 TECHNIQUE: Following the IV administration of 102 mL of Optiray-320, CT angiogram of the thorax was p erformed from the thoracic inlet to the lung bases utilizing the pulmonary embolus protocol. Images a re reviewed in the axial, sagittal, and coronal planes. IV contrast was administered without complica tion. MIP imaging was performed. A dose lowering technique was utilized adhering to the principles o f ALARA. CT DOSE: 431.35 mGycm FINDINGS: No pathologically enlarged axillary mediastinal or hilar lymph nodes were visualized. There was no evidence of thoracic aortic dilatation. There were no pulmonary artery filling defects to indicate acute pulmonary embolism. No pleural effusions are visualized. There is no focal pulmonary consolidation. There is a 3 mm left upper lobe perifissural nodule. No fu rther follow-up is indicated. There is unexplained soft tissue gas within the left upper abdominal wall. Clinical correlation will be necessary to determine the etiology of this finding IMPRESSION: 1. No evidence of acute pulmonary embolism 2. No evidence of focal pulmonary consolidation 3. No evidence of pathologic adenopathy. 4. Nonspecific soft tissue gas within the left upper abdominal wall. Clinical correlation in regards to any recent surgical procedure or trauma is recommended. ACT 112: Negative or not required by law. Electronically signed by: Cole Knapp M.D. 10/19/2019 6:56 AM
[2019-10-19] MEDS ORDERED: NON-FORMULARY MEDICATION (Coq10 (Ubiquinol) 100 MG) PO SCH (09:00)
[2019-10-19] MEDS ORDERED: FLUTICASONE FUROATE 100MCG 14 PUFFS/INHALER INH SCH (09:00)
[2019-10-19] MEDS ORDERED: FAMOTIDINE 20 MG TAB PO SCH (09:00)
[2019-10-19] MEDS ORDERED: ENOXAPARIN INJ 40 MG/0.4 ML SYR SQ SCH (09:00)
[2019-10-19] MEDS ORDERED: ASPIRIN 81 MG ECTAB PO SCH (09:00)
[2019-10-19] MEDS ORDERED: CLOPIDOGREL BISULFATE 75 MG TAB PO SCH (09:00)
[2019-10-19] MEDS ORDERED: CHOLECALCIFEROL 1,000 UNITS 25 MCG TAB PO SCH (09:00)
[2019-10-19] MEDS ORDERED: ESCITALOPRAM OXALATE 10 MG TAB PO SCH (09:00)
[2019-10-19] MEDS ORDERED: PANTOprazole 40 MG TAB PO SCH (09:00)
[2019-10-19 11:13] VITALS: BP 125/70; PULSE 75; TEMP 97.5; O2SAT 96
--- NOTE | 2019-10-19 13:01 | Electrocardiogram Report ---
Test Reason : Blood Pressure : / mmHG Vent. Rate : 066 BPM Atrial Rate : 066 BPM P-R Int : 152 ms QRS Dur : 084 ms QT Int : 402 ms P-R-T Axes : 057 078 085 degrees QTc Int : 421 ms Normal sinus rhythm Anterolateral infarct (cited on or before 15-AUG-2018) Abnormal ECG When compared with ECG of 28-AUG-2019 06:47, No significant change was found Confirmed by Jesús Avery ([id number]) on 10/19/2019 1:00:55 PM Referred By: REFERRED SELF Confirmed By:Hang Avery
--- NOTE | 2019-10-19 13:50 | Cardiology Consultation ---
Date of Consultation October 19, 2019 Assessment & Plan (1) Atypical chest pain: The patient's description of chest discomfort is not cardiac in origin. Fortunately, her troponin I levels remain undetectable, and there are no acute EKG changes. No further cardiac testing indicated at this time. (2) CAD (coronary artery disease): The patient had a proximal LAD stent placed back in 2007. She had an in stent restenoses and required a 2nd stent back in August 2018. Continue medical management. (3) Hypertension: Adequate control on current medical regimen. (4) Dyslipidemia: Continue atorvastatin. History of Present Illness Attending Physician: Robin Ortega History of Present Illness Mrs. Baxter is a 58-year-old female admitted yesterday with a chest pain syndrome. This consultations was ordered to assist in her management. Of note, the patient is well known to me from both the inpatient and outpatient settings. The patient claims she is in her usual state of health until yesterday morning when she developed a burning sensation in her shoulders, upper extremities, and lower extremities. She also described a migratory chest discomfort which was also a burning type sensation. The patient's symptoms lasted for several hours and resolved after drinking red hernandez tea. Her symptoms returned at approximately 6 p.m. last evening. After several hours of discomfort, she decided to proceed emergency room for further care. On arrival here, the patient's EKG was without ischemic changes. Her initial troponin was undetectable. Due to her cardiac history, hospitalization was recommended. The patient does have a longstanding history of coronary artery disease. She has had 2 stents placed within the LAD. The initial 1 was in 2007, and a 2nd stent was placed in August 2018 because of an in stent restenosis. The patient does not experience exertional angina pectoris or limiting dyspnea. She further denies syncope, presyncope, PND, orthopnea, palpitations, lower extremity edema, and claudication. Currently, patient is resting comfortably med without complaints. Past medical and surgical history 1. Coronary artery disease 2. Proximal LAD stent-2007 3. Proximal LAD stent-August 2018 (in stent restenoses) 4. Mild ischemic [id number]% 5. Moderate mitral regurgitation 6. Hypertension 7. Hypercholesterolemia 8. Asthma 9. Hyperglycemia 10. GERD 11. Vitamin-D deficiency 12. Inguinal hernia repair Social history and lives with her No tobacco or alcohol. Family history No early coronary artery disease Review of systems A 10 point review of systems was undertaken and negative except for that described above. Allergies Allergy/AdvReac Type Severity Reaction Status Date / Time sertraline Allergy Intermediate Nausea Verified 10/19/19 01:40 Home Medications Home Medications Medication Instructions Recorded Confirmed Type aspirin 81 mg PO QAM 08/14/18 10/19/19 History coQ10 (ubiquinol) 100 mg PO QAM 08/14/18 10/19/19 History cholecalciferol (vitamin D3) 5,000 unit PO QAM 03/19/19 10/19/19 History [Vitamin D3] atorvastatin 80 mg tablet 80 mg PO HS #90 tab 04/30/19 10/19/19 Rx clopidogrel 75 mg tablet 75 mg PO QAM #90 tab 04/30/19 10/19/19 Rx lisinopril 2.5 mg tablet 2.5 mg PO QAM #90 tab 04/30/19 10/19/19 Rx metoprolol tartrate 25 mg tablet 25 mg PO Q6H #360 tab 04/30/19 10/19/19 Rx nitroglycerin 0.4 mg sublingual 0.4 mg SL Q5M #30 tab 04/30/19 10/19/19 Rx tablet albuterol sulfate 90 mcg/actuation 1 puffs INH Q4H PRN #8.5 gm 06/12/19 10/19/19 Rx aerosol inhaler pantoprazole 40 mg tablet,delayed 40 mg PO QAM #90 tab 06/12/19 10/19/19 Rx release Flovent HFA 2 puffs INH BID 08/27/19 10/19/19 History escitalopram oxalate 5 mg PO QAM 08/27/19 10/19/19 History famotidine 20 mg tablet 20 mg PO BID #60 tab 09/03/19 10/19/19 Rx Patient History Medical History Acid reflux disease (Resolved) Angina at rest (Resolved) Anxiety disorder Arthralgia of multiple sites (Acute) CAD (coronary artery disease) Chest pain Dyslipidemia (Acute) Dystonia (Acute) GERD (gastroesophageal reflux disease) HLD (hyperlipidemia) HTN (hypertension) Left hip pain (Acute) Left leg numbness (Acute) Palpitations (Acute) Past myocardial infarction (Acute) Presence of stent in artery (Resolved) Vitamin D deficiency (Acute) Surgical History H/O bilateral salpingo-oophorectomy H/O heart artery stent LAD stent in 2008 with in-stent thrombosis and STEMI in 2018 H/O: hysterectomy S/P arterial stent S/P cardiac catheterization S/P inguinal hernia repair Family History Other Hypertension Social History Preferred Language: Estonian Communication Ability: Effective Visual Impairment: No Limitations Hearing Ability: Normal Internet Technology Manager Required: No Beliefs That Will Affect Care: None marital status: Current Living Situation: Spouse Other Information That Helps Us Care for You: No Feels Safe at Home: Yes Safety Concerns: Feels Safe At This Time Smoking Status: Unknown if ever smoked Hx Alcohol Use: No Hx Substance Use: No Seatbelt Use: always Physical Exam Physical Exam: In general this is a well-developed well-nourished white female in no acute distress. HEENT exam is negative. Neck is supple with full carotid upstrokes. There are no carotid bruits. Jugular venous pressure is flat at 90. There is no thyromegaly. Cardiovascular exam reveals a regular rhythm with a normal S1 and S2. No S3, S4, or murmurs are noted. Lungs are clear without rales, rhonchi, or wheezes. Abdomen is soft and nontender without bruits. Extremities reveal intact radial artery and posterior tibial pulses bilaterally. There is no peripheral edema. Results & Data Vital Signs (Past 12 Hours) Vital Signs Temp Pulse Pulse Resp BP Pulse Ox 10/19/19 11:10 36.4 C L 75 19 125/70 96 10/19/19 07:41 37.0 C 68 19 105/62 94 10/19/19 07:29 78 10/19/19 03:05 36.6 C 71 18 133/71 93 10/19/19 02:26 80 18 137/79 95 10/19/19 01:56 71 18 124/80 97 Laboratory Results [employer] notes hemoglobin 13.0, hematocrit 38.8, white count 8.1, and platelet count of 002352. Electrolytes note a sodium 139, potassium 4.1, chloride 106, bicarb 20, BUN 13, creatinine 0.85, and glucose of 110. Troponin I level is less than 0.015 on 2 occasions. BNP is mildly elevated 1426. TSH is normal 1.84. Diagnostic Findings EKG notes normal sinus rhythm and an old anterolateral myocardial infarction. This is unchanged when compared with a tracing done on August 28, 2019. Chest x-ray shows no acute disease. CT scan of the chest was negative. PG Care Time/CCT Total # of Minutes Spent Total Time Spent with Patient: Total time spent is greater than 50% in coordination of care (as documented) at patient's floor/unit and/or counseling patient: Coding Level of Care Code 13141 Office/OBS Consult Lvl 4 Diagnoses Atypical chest pain R07.89 CAD (coronary artery disease) I25.10 Hypertension I10 Hypertension type: unspecified Dyslipidemia E78.5 (1) Hypertension Hypertension type: unspecified Qualified Code(s): I10 - Essential (primary) hypertension
[2019-10-19] MEDS ORDERED: ATORVASTATIN 40 MG TAB PO SCH (21:00)
--- NOTE | 2019-10-23 20:32 | Discharge Summary ---
Date of Service October 19, 2019 Principal Diagnosis non cardiac chest pain Discharge Exam General- adult female, NAD Head- atraumatic Eyes- PERRL, EOMI, anicteric ENT- oropharynx clear Neck- supple, no JVD, no adenopathy, no thyromegaly. Lungs- CTA b/l no R/R/W. Heart- regular rhythm; no murmur, no gallop, no rub appreciated Abdomen- normal bowel sounds, soft, nontender. Extremities- no pretibial edema, no calf tenderness; peripheral pulses intact Neuro- alert, oriented x 3; PERRL, EOMI; woven blind loom tender II-XII grossly intact, non-focal. Skin- warm & dry Discharge Data Allergies Allergy/AdvReac Type Severity Reaction Status Date / Time sertraline Allergy Intermediate Nausea Verified 10/19/19 01:40 Consultations 10/19/19 01:19 ED Decision to Admit Stat 10/19/19 03:26 Consult Cardiology Routine Ordered Studies 10/19/19 02:39 CT angio chest PE protocol Urgent Hospital Course (1) Atypical chest pain: OBS tele Discussed case with cardio, history not compatible with cardiac chest pain Serial Troponin were negative. Prelim report shows no PE. (2) Hypertension: Reported systolic 160's at home Currently she is down to sys 124. Continue lisinopril (3) CAD (coronary artery disease): Consult cardiology. Sees Dr. Crews as outpatient. Continue aspirin, Plavix, and metoprolol (4) GERD (gastroesophageal reflux disease): Continue famotidine and pantoprazole (5) Dyslipidemia: Continue atorvastatin Total Time Total Time Spent Total Time Spent (In Minutes): 32 Discharge Plan Discharge Items Patient Disposition: Home - Self-Care Reason For Visit: CHEST PAIN Discharge Diagnosis: chest pain Non-emergency contact: Primary Care Provider Call non-emergency contact if: you have any medication questions Follow-up/Referrals: Brisa Rodríguez MD [Primary Care Provider] - Diet: Regular Addtl Attending Provider Instructions: You have been hospitalized for an acute medical problem. During your stay at [facility], we have made an effort to correct the problem that brought you to the hospital while keeping you as comfortable as possible. Medications were used to bring your condition under control and your discharge instructions will include directions for any medications you should take after leaving the hospital. Please make sure you see your Primary Care Provider as part of your follow up plan. Pending Studies at Discharge: No Stand-Alone Forms: My [facility], Smoking Cessation Medications and DC Order Prescriptions: Continued famotidine 20 mg tablet 20 mg PO BID Qty: 60 RF: 5 albuterol sulfate 90 mcg/actuation HFA aerosol inhaler 1 puffs INH Q4H PRN (Reason: shortness of breath or wheezing) Qty: 8.5 RF: 5 pantoprazole 40 mg tablet,delayed release (DR/EC) 40 mg PO QAM Qty: 90 RF: 3 atorvastatin 80 mg tablet 80 mg PO HS Qty: 90 RF: 3 clopidogrel 75 mg tablet 75 mg PO QAM Qty: 90 RF: 3 lisinopril 2.5 mg tablet 2.5 mg PO QAM Qty: 90 RF: 3 metoprolol tartrate 25 mg tablet 25 mg PO Q6H Qty: 360 RF: 3 nitroglycerin 0.4 mg tablet, sublingual 0.4 mg SL Q5M Qty: 30 RF: 5 aspirin 81 mg Tablet,Chewable 81 mg PO QAM RF: 0 coQ10 (ubiquinol) 100 mg Capsule 100 mg PO QAM RF: 0 cholecalciferol (vitamin D3) [Vitamin D3] 5,000 unit Tablet 5,000 unit PO QAM RF: 0 Flovent HFA 110 mcg/actuation HFA aerosol inhaler 2 puffs INH BID RF: 0 escitalopram oxalate 5 mg tablet 5 mg PO QAM RF: 0 Discharge Orders: Discharge Order (Routine); Ordered 10/19/19 Ordered By: Robin Ortega Admission Data Admit Date/Time: 10/19/19 02:09 Attending Provider: Robin Ortega Admit Provider: Rashad Gibbs Primary Care Provider: Brisa Rodríguez V. Other Providers: Rashad Gibbs ; Salazar Rocha Other Interventions: Discharge Summary Assessment (RN) Last Done: 10/19/19 13:53 DC Date/Time DO NOT enter until pt leaves facility: 10/19/19 14:17 Coding Level of Care Code 27387 OBS Care - Discharge Diagnoses Atypical chest pain R07.89 Hypertension I10 Hypertension type: unspecified CAD (coronary artery disease) I25.10 GERD (gastroesophageal reflux disease) K21.9 Esophagitis presence: esophagitis presence not specified Dyslipidemia E78.5
== END 2019-10-19 14:17 | disposition home or self-care (01) ==
LOC: ED 22:26 → 2S 22:26 → SUATTDRO 10-19 02:09 → 2S 10-19 02:22
DX: R07.89 Other chest pain; I25.10 Atherosclerotic heart disease of native coronary artery without angina pectoris; I34.0 Nonrheumatic mitral (valve) insufficiency; Z79.82 Long term (current) use of aspirin; K21.9 Gastro-esophageal reflux disease without esophagitis; Z79.899 Other long term (current) drug therapy; E55.9 Vitamin D deficiency, unspecified; J45.909 Unspecified asthma, uncomplicated; I25.5 Ischemic cardiomyopathy; I10 Essential (primary) hypertension; E78.00 Pure hypercholesterolemia, unspecified; E78.5 Hyperlipidemia, unspecified; Z88.8 Allergy status to other drugs, medicaments and biological substances

== ENCOUNTER 2022-06-06 08:05 | Observation (INO) ==
[2022-06-06] MEDS ORDERED: NITROGLYCERIN SL 0.4 MG/TAB TAB SL STA (08:26)
[2022-06-06 08:30] LABS: Hematocrit (blood only) 39.9 % (34.1-44.9); Hemoglobin 12.9 g/dl (12.0-16.0); Mean Corpuscular Hemoglobin 29.1 pg (25.0-34.0); Mean Corpuscular Hgb Conc 32.3 g/dL (32.0-36.0); Mean Corpuscular Volume 89.9 fL (80.0-100.0); Mean Platelet Volume 9.4 fL (9.4-12.3); Platelet Count 241 K/uL (130-400); RDW Coefficient of Variation 13.5 % (11.5-14.5); RDW Standard Deviation 44.8 fL (36.4-46.3); Red Blood Count 4.44 M/uL (3.93-5.22); White Blood Count 6.88 K/ul (4.8-10.8)
--- NOTE | 2022-06-06 08:32 | Emergency Department Note ---
History of Present Illness General Chief complaint: Cardiac Assessment Stated complaint: SOB, CHEST PAIN Time Seen by Provider: 06/06/22 08:12 Source: patient, family ( who is at the bedside), RN notes reviewed and old records reviewed Mode of arrival: ambulatory Limitations: no limitations History of Present Illness Maximum Pain Intensity: 6 This patient is a 61-year-old female who is history of cardiac disease and hypertension, comes in after of intermittent chest pain/pressure for the last couple days it got worse overnight at 2:00 in the morning she says she had chest pain at 730 this morning she had a nitroglycerin because the pain was 9 out of 10 she said her blood pressure was high for her at 160/98 came down to 135/71 and the pain got better at present the pain is about 3 and she describes as a pressure she has had some shortness of breath no diaphoresis it does radiate to her left arm. She tells me she had an IA 11 years ago and was treated in [place] with a stent 2 years ago she had another stent. She is followed locally by Dr. Crews and tells me she has had no recent cath or stress test since the last stent. Trace pedal edema but nothing different than normal. She did not have the COVID-vaccine. No exposure to COVID no fever or chills or cough. Her drove her in Home Medications Medication Instructions Recorded Confirmed Type aspirin 81 mg chewable tablet 81 mg PO QAM 08/14/18 06/06/22 History coQ10 (ubiquinol) 100 mg capsule 100 mg PO QAM 08/14/18 06/06/22 History cholecalciferol (vitamin D3) 125 5,000 unit PO QAM 03/19/19 06/06/22 History mcg (5,000 unit) tablet (Vitamin D3) fluticasone propionate 110 2 puffs inhalation BID 08/27/19 06/06/22 History mcg/actuation HFA aerosol inhaler (Flovent HFA) metoprolol tartrate 25 mg tablet 25 mg PO Q6H PRN hypertension #60 03/14/20 06/06/22 Rx tabs atorvastatin 80 mg tablet 80 mg PO HS #90 tabs 12/07/21 06/06/22 Rx lisinopril 2.5 mg tablet 2.5 mg PO QAM #90 tabs 12/07/21 06/06/22 Rx nitroglycerin 0.4 mg sublingual 0.4 mg sublingual Q5M PRN chest 12/21/21 06/06/22 Rx tablet pain #25 tabs albuterol sulfate 90 mcg/actuation 1 puff inhalation Q4H PRN 06/04/22 06/06/22 Rx aerosol inhaler shortness of breath or wheezing #8.5 grams escitalopram oxalate 5 mg tablet 5 mg PO QAM #90 tabs 06/04/22 06/06/22 Rx famotidine 40 mg tablet 40 mg PO DAILY #90 tabs 06/04/22 06/06/22 Rx clopidogrel 75 mg tablet 75 mg PO QAM 06/06/22 06/06/22 History Allergies Allergy/AdvReac Type Severity Reaction Status Date / Time sertraline Allergy Intermediate Nausea Verified 06/06/22 09:13 Past Med/Surg History Medical History Acid reflux disease Angina at rest Anxiety disorder Arthralgia of multiple sites Atypical chest pain CAD (coronary artery disease) Chest pain Dyslipidemia Dystonia GERD (gastroesophageal reflux disease) HLD (hyperlipidemia) HTN (hypertension) Left hip pain Left leg numbness Palpitations Past myocardial infarction Presence of stent in artery Vitamin D deficiency Surgical History H/O bilateral salpingo-oophorectomy H/O heart artery stent LAD stent in 2007 with in-stent thrombosis and STEMI in 2018 H/O: hysterectomy S/P arterial stent S/P cardiac catheterization S/P inguinal hernia repair Family History Other Hypertension Denies family history of Crohn's disease Colorectal cancer Ulcerative colitis Social History Smoking Status: Never smoker Second Hand Exposure: No; Hx Alcohol Use: No Hx Substance Use: No Preferred Language: French Communication Ability: Effective Visual Impairment: No Limitations Hearing Ability: Normal 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 Beliefs That Will Affect Care: None marital status: Current Living Situation: Spouse Feels Safe at Home: Yes Seatbelt Use: always Assistive Devices: None Review of Systems A total of 10 systems reviewed and were otherwise negative Physical Exam Vital Signs Vital Signs - 24 hr 06/06/22 08:08 06/06/22 08:21 06/06/22 08:22 Temperature 36.6 C Temperature Source Temporal Artery Scan Pulse Rate 70 Pulse Rate [Apical] 76 Pulse Rate from SpO2 Sensor Respiratory Rate 20 17 Respiratory Effort / Characteristics Non-Labored Respiratory Depth Normal Blood Pressure 145/81 H Blood Pressure [Left Arm] 160/73 H Blood Pressure Mean 102 Blood Pressure Mean [Left Arm] 102 Blood Pressure Position Sitting Pulse Oximetry 98 98 Oxygen Delivery Method Room Air Room Air Room Air Sepsis Recent Fever Within 48 Hours No Sepsis New/Unexplained Change in Mental Status No Sepsis Action Taken by Nursing No Action Required 06/06/22 08:30 06/06/22 08:33 06/06/22 08:41 Temperature Temperature Source Pulse Rate 64 Pulse Rate [Apical] Pulse Rate from SpO2 Sensor 65 Respiratory Rate 18 Respiratory Effort / Characteristics Respiratory Depth Blood Pressure 124/86 114/58 L Blood Pressure [Left Arm] Blood Pressure Mean 98 76 Blood Pressure Mean [Left Arm] Blood Pressure Position Pulse Oximetry 98 Oxygen Delivery Method Room Air Room Air Sepsis Recent Fever Within 48 Hours Sepsis New/Unexplained Change in Mental Status Sepsis Action Taken by Nursing 06/06/22 08:41 06/06/22 09:00 06/06/22 09:00 Temperature Temperature Source Pulse Rate 63 60 Pulse Rate [Apical] Pulse Rate from SpO2 Sensor 63 60 Respiratory Rate 14 16 Respiratory Effort / Characteristics Respiratory Depth Blood Pressure 123/62 Blood Pressure [Left Arm] Blood Pressure Mean 82 Blood Pressure Mean [Left Arm] Blood Pressure Position Pulse Oximetry 96 97 Oxygen Delivery Method Room Air Room Air Sepsis Recent Fever Within 48 Hours Sepsis New/Unexplained Change in Mental Status Sepsis Action Taken by Nursing 06/06/22 09:30 06/06/22 09:30 Temperature Temperature Source Pulse Rate 60 Pulse Rate [Apical] Pulse Rate from SpO2 Sensor 60 Respiratory Rate 15 Respiratory Effort / Characteristics Respiratory Depth Blood Pressure 121/65 Blood Pressure [Left Arm] Blood Pressure Mean 83 Blood Pressure Mean [Left Arm] Blood Pressure Position Pulse Oximetry 98 Oxygen Delivery Method Room Air Sepsis Recent Fever Within 48 Hours Sepsis New/Unexplained Change in Mental Status Sepsis Action Taken by Nursing General: Well developed well nourished middle-age female who appears in no acute distress, breathing comfortably on room air. Normal speech HEENT: Normal cephalic atraumatic. Pupils are equal round and reactive to light. Extraocular movements are intact. Oropharynx is pink with moist mucous membranes. No swelling of the mouth lips or tongue. Neck: Supple with a midline trachea. No meningeal signs or stiffness, no JVD or bruits. No Stridor. Chest: Clear to auscultation bilaterally. No wheezes or rhonchi. No increased work of breathing. Heart: Regular rate and rhythm without murmurs or gallops. Abdomen: Soft nontender, nondistended without rebound guarding or rigidity. Extremities: No cyanosis clubbing or edema. No calf tenderness or assymetry Spine/Back. Non tender to palpation. No CVA tenderness Skin: Good turgor without rashes. Neurologic exam: Cranial nerves two through 12 are intact. Motor and sensation are intact and symmetrical throughout. Course Administered Medications Discontinued Medications Nitroglycerin (Nitroglycerin Sl 0.4 Mg/Tab Tab) 0.4 mg SL NOW STA Stop: 06/06/22 08:27 Last Admin: 06/06/22 08:32 Dose: 0.4 mg Documented By: BECKI Nitroglycerin (Nitroglycerin 2% Ointment 30gm Tube) 0.5 inch EXT NOW ONE Stop: 06/06/22 08:46 Last Admin: 06/06/22 08:50 Dose: 0.5 inch Documented By: BECKI Pantoprazole Sodium (Pantoprazole 40 Mg Tab) 40 mg PO NOW STA Stop: 06/06/22 09:46 Last Admin: 06/06/22 10:02 Dose: 40 mg Documented By: BECKI Critical Care Time Critical Care Time: Yes Total Critical Care Time: 30 Due to the patient's chest pain, need for nitroglycerin and other medications, frequent reassessment and consultation, serial EKGs and troponins, I have per sonally spent greater than 30 minutes of critical care time in the direct management of this patient. This includes bedside care, interpretation of diagnostic studies, and testing, discussion with consultants, patient, and family members, and other required patient management activities. This 30 m inutes is in excess of all separately billable procedures. Medical Decision Making Differential Diagnosis Acute coronary syndrome, arrhythmia, CHF, hypertension, electrolyte or metabolic abnormality, infection Medical Records Attestation: I reviewed the patient's medical records. Home Medications Current Medication List: was personally reviewed by me Laboratory Data Attestation: I reviewed the patient's lab results. Result diagrams: 06/06/22 08:20 06/06/22 08:20 Lab Results 06/06/22 06/06/22 06/06/22 Range/Units 08:20 08:20 08:20 WBC 6.88 (4.8-10.8) K/ul RBC 4.44 (3.93-5.22) M/uL Hgb 12.9 (12.0-16.0) g/dl Hct 39.9 (34.1-44.9) % MCV 89.9 (80.0-100.0) fL MCH 29.1 (25.0-34.0) pg MCHC 32.3 (32.0-36.0) g/dL RDW Std Deviation 44.8 (36.4-46.3) fL RDW Coeff of [place] 13.5 (11.5-14.5) % Plt Count 241 (130-400) K/uL MPV 9.4 (9.4-12.3) fL Immature Gran % (Auto) 0.3 % Neut % (Auto) 37.3 % Lymph % (Auto) 50.6 % Lea % (Auto) 8.0 % Eos % (Auto) 2.6 % Baso % (Auto) 1.2 % Neut # (Auto) 2.57 (1.4-6.5) K/uL Lymph # (Auto) 3.48 H (1.2-3.4) K/uL Lea # (Auto) 0.55 (0.24-0.82) K/uL Eos # (Auto) 0.18 (0-0.50) K/uL Baso # (Auto) 0.08 (0-0.2) K/uL Immature Gran # (Auto) 0.02 (0.00-0.02) K/uL PT 10.4 (9.0-12.0) Seconds INR 1.0 (0.9-1.1) APTT 27.2 (21.0-31.0) Seconds PTT Ratio 1.0 Sodium 138 (136-145) mmol/L Potassium 3.7 (3.5-5.1) mmol/L Chloride 104 (98-107) mmol/L Carbon Dioxide 28 (21-32) mmol/L Anion Gap 6 (3-11) BUN 14 (6-23) mg/dl Creatinine 0.79 (0.6-1.2) mg/dl Est Cr Clr Drug Dosing 65.0 ml/min Est GFR ( Amer) 93.6 ml/min Est GFR (Non-Af Amer) 80.8 ml/min BUN/Creatinine Ratio 17.7 (10-20) Glucose 98 (70-99(Fasting)) mg/dl Calcium 9.2 (8.5-10.1) mg/dl Total Bilirubin 0.5 (0.2-1.0) mg/dl AST 15 (13-39) U/L ALT 15 (7-52) U/L Alkaline Phosphatase 61 (34-104) U/L Troponin I High Sens 4.9 (0-14) pg/ml Total Protein 6.9 (6.0-8.3) gm/dl Albumin 4.3 (3.4-5.0) gm/dl Globulin 2.6 (2.5-4.0) gm/dl Albumin/Globulin Ratio 1.7 (0.9-2) Lipase 15 (11-82) U/L SARS-CoV-2, RNA, NAAT (NEGATIVE) 06/06/22 Range/Units 09:19 WBC (4.8-10.8) K/ul RBC (3.93-5.22) M/uL Hgb (12.0-16.0) g/dl Hct (34.1-44.9) % MCV (80.0-100.0) fL MCH (25.0-34.0) pg MCHC (32.0-36.0) g/dL RDW Std Deviation (36.4-46.3) fL RDW Coeff of Chet[place] (11.5-14.5) % Plt Count (130-400) K/uL MPV (9.4-12.3) fL Immature Gran % (Auto) % Neut % (Auto) % Lymph % (Auto) % Lea % (Auto) % Eos % (Auto) % Baso % (Auto) % Neut # (Auto) (1.4-6.5) K/uL Lymph # (Auto) (1.2-3.4) K/uL Lea # (Auto) (0.24-0.82) K/uL Eos # (Auto) (0-0.50) K/uL Baso # (Auto) (0-0.2) K/uL Immature Gran # (Auto) (0.00-0.02) K/uL PT (9.0-12.0) Seconds INR (0.9-1.1) APTT (21.0-31.0) Seconds PTT Ratio Sodium (136-145) mmol/L Potassium (3.5-5.1) mmol/L Chloride (98-107) mmol/L Carbon Dioxide (21-32) mmol/L Anion Gap (3-11) BUN (6-23) mg/dl Creatinine (0.6-1.2) mg/dl Est Cr Clr Drug Dosing ml/min Est GFR ( Amer) ml/min Est GFR (Non-Af Amer) ml/min BUN/Creatinine Ratio (10-20) Glucose (70-99(Fasting)) mg/dl Calcium (8.5-10.1) mg/dl Total Bilirubin (0.2-1.0) mg/dl AST (13-39) U/L ALT (7-52) U/L Alkaline Phosphatase (34-104) U/L Troponin I High Sens (0-14) pg/ml Total Protein (6.0-8.3) gm/dl Albumin (3.4-5.0) gm/dl Globulin (2.5-4.0) gm/dl Albumin/Globulin Ratio (0.9-2) Lipase (11-82) U/L SARS-CoV-2, RNA, NAAT NEGATIVE (NEGATIVE) Imaging Data Attestation: I personally reviewed and interpreted this imaging study as follows: My Impression: Chest x-rayno acute infiltrate, failure, pneumothorax seen Radiologist's Impression: Chest X-Ray 06/06/22 08:25 XR chest 1V portable CLINICAL HISTORY: Chest Pain TECHNIQUE: Single frontal radiograph of the chest was obtained. Comparison: Comparison is made to chest radiograph 06/08/2021 FINDINGS: No lines and tubes are seen. Cardiomegaly is noted. The lungs are clear. No evidence of pleural effusion or pneumothorax. IMPRESSION: No acute chest disease. ACT 112: Negative or not required by law. Electronically signed by: Sabino Agudelo M.D. 06/06/2022 8:58 AM ECG Data Attestation: I personally reviewed and interpreted this ECG as follows: Indication: + chest pain Rate (beats per minute): 75 Rhythm: + normal sinus ECG Intervals/blocks: + Normal QRS, + Normal QT and + Normal MS ECG [place]: + Normal ECG ST segments: + Normal ST segments ECG Findings: no PACs or no PVCs Comparison ECG Date: from (06/08/21) Change: no significant change Additional Comments: EKG #2: Normal sinus rhythm with a rate of 64. No acute ischemic changes, no changes compared to EKG #1 MDM Narrative This patient is a 61-year-old female history of cardiac disease and hypertension comes in with intermittent chest pressure. She was placed on a monitoring coordinator in room C7 I saw her promptly as she was getting the EKG. Her initial EKG does not show any changes suggesting STEMI however I am still concerned about her pain given her history. She did take aspirin 324 mg prior to arrival. Her pain is still about 3 out of 10 so I gave her another nitroglycerin. Chest x-ray multiple blood testing was obtained IV access established. She was reassessed frequently. Chest x-ray does not show congestive heart failure, pneumonia or pneumothorax. I did a follow-up EKG and there is no change compared to EKG #1. With the second nitro her pain went to about a 1 so I put 1/2 inch of Nitropaste she did tolerate this well. Given her symptoms I do think she needs to be admitted for further treatment evaluation although her initial troponin and second troponin in the ED are also negative but again given her cardiac risk factors and history of stents I do think she would benefit from further cardiac work-up as an inpatient. I have consulted the hospitalist to see her in ER for these measures Continuous cardiac monitoring: An order was placed in EMR for continuous cardiac monitoring. Upon my interpretation she was noted to be in normal sinus rhythm rate of 75 Impression & Plan Angina pectoris, unstable, Presence of stent in artery, Chest pain, Lab test negative for COVID-19 virus Discharge Plan Visit Data Chief Complaint: Cardiac Assessment Stated Complaint: SOB, CHEST PAIN ED Provider: Edin Montano Discharge Problem: Angina pectoris, unstable, Presence of stent in artery, Chest pain, Lab test negative for COVID-19 virus Patient Disposition: Admitted As Inpatient Discharge Instructions Interventions: ED Discharge Assessment Last Done: 06/06/22 13:41
[2022-06-06] MEDS ORDERED: NITROGLYCERIN 2% OINTMENT 30GM TUBE EXT ONE (08:45)
[2022-06-06 08:46] LABS: Partial Thromboplastin Time 27.2 Seconds (21.0-31.0); Prothrombin Time 10.4 Seconds (9.0-12.0)
--- NOTE | 2022-06-06 08:59 | XRay Report ---
XR chest 1V portable CLINICAL HISTORY: Chest Pain TECHNIQUE: Single frontal radiograph of the chest was obtained. Comparison: Comparison is made to chest radiograph 06/08/2021 FINDINGS: No lines and tubes are seen. Cardiomegaly is noted. The lungs are clear. No evidence of pleural effus ion or pneumothorax. IMPRESSION: No acute chest disease. ACT 112: Negative or not required by law. Electronically signed by: Sabino Agudelo M.D. 06/06/2022 8:58 AM
[2022-06-06 09:04] LABS: Albumin Globulin Ratio 1.7 (0.9-2); Albumin Level 4.3 gm/dl (3.4-5.0); BUN Creatinine Ratio 17.7 (10-20); Bilirubin,Total 0.5 mg/dl (0.2-1.0); Calcium 9.2 mg/dl (8.5-10.1); Est GFR (African American) 93.6 ml/min; Est GFR (Non-African American) 80.8 ml/min; Globulin 2.6 gm/dl (2.5-4.0); Potassium 3.7 mmol/L (3.5-5.1); Total Protein 6.9 gm/dl (6.0-8.3)
[2022-06-06 09:08] LABS: Troponin I High Sensitivity 4.9 pg/ml (0-14)
[2022-06-06 09:11] LABS: Basophils # (auto) 0.08 K/uL (0-0.2); Basophils % (auto) 1.2 %; Eosinophils # (auto) 0.18 K/uL (0-0.50); Eosinophils % (auto) 2.6 %; Immature Granulocytes # (auto) 0.02 K/uL (0.00-0.02); Immature Granulocytes % (auto) 0.3 %; Lymphocytes # (auto) 3.48 K/uL (1.2-3.4); Lymphocytes % (auto) 50.6 %; Monocytes # (auto) 0.55 K/uL (0.24-0.82); Neutrophils # (auto) 2.57 K/uL (1.4-6.5); Neutrophils % (auto) 37.3 %
[2022-06-06] MEDS ORDERED: PANTOprazole 40 MG TAB PO STA (09:45)
--- NOTE | 2022-06-06 09:57 | History & Physical Report ---
Date of Service June 06, 2022 Assessment & Plan (1) Chest pain, rule out acute myocardial infarction: Plan: Exertional left arm pain concerning for worsening stable angina. Chest pain unclear if cardiac but given history and patient feels this is similar sensation leading up to her AK observe her with serial cardiac enzymes and consult her cardiology to consider stress echo vs. cardiac catheterization ASA 324mg PO taken at home. Continue her usual aspirin and clopidogrel. Continue metoprolol, lisinopril and atorvastatin. GERD remains a possibility and will start on pantoprazole 40mg PO daily in addition to her famotidine to try and eliminate this from her diagnosis. (2) CAD (coronary artery disease): Plan: History of AK (3) Hypertension: Plan: Continue metoprolol 25mg PO BID (occasionally takes extra but HTN but no need in hospital) and lisinopril 2.5mg PO daily (4) GERD (gastroesophageal reflux disease): Plan: Continue famotidine 40mg PO daily and add pantoprazole 40mg PO daily as above Plan VTE Prophylaxis - deferred, low risk Diet - hear healthy, NPO at midnight Disposition - observation status to PCU Admission and Anticipated Discharge Date Admission Date: June 06, 2022 History of Present Illness Chief Complaint: Chest pain Primary Care Provider: Brisa Rodríguez MD Jessica Baxter is a 61 year old female with known coronary artery disease who presents to the ER with chest pain. She reports having two episodes of shortness of breath earlier this week lasting for minutes which is unusual for her. She has also been having left arm pain worse on exertion and relieved with rest just this week. She reports two episodes of chest pain. One last night after going out for a walk lasting only a few minutes and was helped after she took her routine metoprolol and she fell asleep. She woke up with chest pain this morning, 9/10, substernal, relieved with aspirin 324mg and nitroglycerin 0.4mg SL which brought it down to a 5-6/10 until she came to the ER and was given additional nitroglycerin and nitro paste around 8:30am which brought it down to a 0/10. She is currently chest pain free when seen. Associated shortness of breath (which does not happen with her reflux) and nausea but not diaphoresis. She has a significant history of coronary artery disease with myocardial infarction in 2006; pLAD stent 2006; patent stent 2012, patent stent January 2016; pLAD stent August 2018. She also reports a significant history of gastro-esophageal reflux with associated acidic taste in her mouth. This has been happening this last week and she takes famotidine for this but her current symptoms appear to be different as her reflux is much more positional (worse on lying down), it is more of a burning sensation and she is currently not having associated acidic taste. In the ER she was given 0.4mg nitroglycerin SL and nitro paste 0.5 inch and she is now chest pain free. Initial high sensitivity troponin I is normal. EKG showing T wave flattening in lateral leads - mildly more flattened than prior in May 2021. She was referred to medicine for admission and ongoing management of chest pain. Allergies Allergy/AdvReac Type Severity Reaction Status Date / Time sertraline Allergy Intermediate Nausea Verified 06/06/22 09:13 Home Medications Medication Instructions Recorded Confirmed Type aspirin 81 mg chewable tablet 81 mg PO QAM 08/14/18 06/06/22 History coQ10 (ubiquinol) 100 mg capsule 100 mg PO QAM 08/14/18 06/06/22 History cholecalciferol (vitamin D3) 125 5,000 unit PO QAM 03/19/19 06/06/22 History mcg (5,000 unit) tablet (Vitamin D3) fluticasone propionate 110 2 puffs inhalation BID 08/27/19 06/06/22 History mcg/actuation HFA aerosol inhaler (Flovent HFA) metoprolol tartrate 25 mg tablet 25 mg PO Q6H PRN hypertension #60 03/14/20 06/06/22 Rx tabs atorvastatin 80 mg tablet 80 mg PO HS #90 tabs 12/07/21 06/06/22 Rx lisinopril 2.5 mg tablet 2.5 mg PO QAM #90 tabs 12/07/21 06/06/22 Rx nitroglycerin 0.4 mg sublingual 0.4 mg sublingual Q5M PRN chest 12/21/21 06/06/22 Rx tablet pain #25 tabs albuterol sulfate 90 mcg/actuation 1 puff inhalation Q4H PRN 06/04/22 06/06/22 Rx aerosol inhaler shortness of breath or wheezing #8.5 grams escitalopram oxalate 5 mg tablet 5 mg PO QAM #90 tabs 06/04/22 06/06/22 Rx famotidine 40 mg tablet 40 mg PO DAILY #90 tabs 06/04/22 06/06/22 Rx clopidogrel 75 mg tablet 75 mg PO QAM 06/06/22 06/06/22 History Past Med/Surg History Medical History Acid reflux disease Angina at rest Anxiety disorder Arthralgia of multiple sites Atypical chest pain CAD (coronary artery disease) Chest pain Dyslipidemia Dystonia GERD (gastroesophageal reflux disease) HLD (hyperlipidemia) HTN (hypertension) Left hip pain Left leg numbness Palpitations Past myocardial infarction Presence of stent in artery Vitamin D deficiency Surgical History H/O bilateral salpingo-oophorectomy H/O heart artery stent LAD stent in 2007 with in-stent thrombosis and STEMI in 2018 H/O: hysterectomy S/P arterial stent S/P cardiac catheterization S/P inguinal hernia repair Family History Other Hypertension Denies family history of Crohn's disease Colorectal cancer Ulcerative colitis Social History Smoking Status: Never smoker Second Hand Exposure: No; Hx Alcohol Use: No Hx Substance Use: No Preferred Language: Faroese Communication Ability: Effective Visual Impairment: No Limitations Hearing Ability: Normal Boring [employer] Required: No Beliefs That Will Affect Care: None marital status: Current Living Situation: Spouse Feels Safe at Home: Yes Seatbelt Use: always Assistive Devices: None Review of Systems Review of Systems: All systems reviewed & are unremarkable except as noted in HPI & below Physical Exam Constitutional: WD/WN, vitals as above Eyes: + anicteric sclerae; normal pupil size ENMT: external ear and nose normal, oropharynx normal Neck: trachea midline, no thyromegaly Respiratory: normal respiratory effort, lungs clear to auscultation Cardiovascular: Rate/Rhythm: regular rate and regular rhythm Heart Sounds: normal S1 and normal S2; no murmur Vessels: no JVD Extremities: normal capillary refill and + pedal edema (trace ankles pitting); no calf tenderness Gastrointestinal (Abdomen): normal bowel sounds, soft, nontender, no hepatosplenomegaly Musculoskeletal: no cyanosis or clubbing, extremities motor strength 5/5 Skin: no rashes, warm and dry Neurologic: moves all extremities and awake; not confused Psychiatric: A+Ox3, euthymic affect Results & Data Results & Data ([facility]) Vital Signs (Past 12 Hours) Vital Signs Temp Pulse Pulse Resp BP BP Pulse Ox 06/06/22 09:30 60 15 98 06/06/22 09:30 121/65 06/06/22 09:00 60 16 97 06/06/22 09:00 123/62 06/06/22 08:41 63 14 96 06/06/22 08:41 114/58 L 06/06/22 08:33 06/06/22 08:30 64 18 124/86 98 06/06/22 08:22 06/06/22 08:21 76 17 160/73 H 98 06/06/22 08:08 36.6 C 70 20 145/81 H 98 O2 Del Method 06/06/22 09:30 Room Air 06/06/22 09:30 06/06/22 09:00 Room Air 06/06/22 09:00 06/06/22 08:41 Room Air 06/06/22 08:41 06/06/22 08:33 Room Air 06/06/22 08:30 Room Air 06/06/22 08:22 Room Air 06/06/22 08:21 Room Air 06/06/22 08:08 Room Air Laboratory Results Abnormal lab results 06/06/22 Range/Units 08:20 Lymph # (Auto) 3.48 H (1.2-3.4) K/uL Diagnostic Findings XR chest 1V portable CLINICAL HISTORY: Chest Pain TECHNIQUE: Single frontal radiograph of the chest was obtained. Comparison: Comparison is made to chest radiograph 06/08/2021 FINDINGS: No lines and tubes are seen. Cardiomegaly is noted. The lungs are clear. No evidence of pleural effusion or pneumothorax. IMPRESSION: No acute chest disease. Medications Administered ER Medications Given: Nitroglycerin 0.4mg SL Nitroglycerin [Nitro-BID 2%] 0.5 inch ECG Indication: chest pain Rate (beats per minute): 75 Rhythm: normal sinus Findings: + other (nonspecific T wave flattening worse in lateral leads) Comparison ECG Date: from (June 08, 2021) Change: the following changes noted (T wave flattening is new and dynamic on rpt EKG in lateral leads) Code Status & VTE Plan Code Status Full VTE Prophylaxis Plan VTE Prophylaxis will be ordered: No Reason for no VTE drug order: Treatment not indicated Reason for no VTE mechanical prophylaxis: Treatment not indicated PG Care Time/CCT Total # of Minutes Spent Total Time Spent with Patient: Total time spent is greater than 50% in coordination of care (as documented) at patient's floor/unit and/or counseling patient: Coding Level of Care Code INT OBSERVATION CARE 50M LVL 2 Diagnoses Chest pain, rule out acute myocardial infarction R07.9 CAD (coronary artery disease) I25.10 Hypertension I10 Hypertension type: unspecified GERD (gastroesophageal reflux disease) K21.9 Esophagitis presence: esophagitis presence not specified (1) Hypertension Hypertension type: unspecified Qualified Code(s): I10 - Essential (primary) hypertension (2) GERD (gastroesophageal reflux disease) Esophagitis presence: esophagitis presence not specified Qualified Code(s): K21.9 - Gastro-esophageal reflux disease without esophagitis
--- NOTE | 2022-06-06 11:28 | Cardiology Consultation ---
Date of Consultation June 06, 2022 Assessment & Plan (1) Chest pain syndrome: -history does not suggest myocardial ischemia. -agree with observation in the hospital. -would not use intravenous heparin at this time as troponins are normal. -continue usual outpatient medications. -agree with echocardiogram. -discussed performing a stress test in the a.m., however, the patient is not interested (anxiety disorder). (2) CAD (coronary artery disease): -as outlined above. (3) Hypertension: -adequate control on current regimen. (4) Dyslipidemia: -continue atorvastatin. History of Present Illness History of Present Illness Mrs. Baxter is a 61-year-old female admitted earlier today a chest pain syndrome. This consultation was ordered to assist in her cardiac management. Of note, the patient is well known to me from the outpatient setting. Patient was in her usual state of health until 3-4 days prior to presentation. She developed a substernal chest pressure which waxed and waned throughout the ensuing days. She did note some exertional dyspnea if she walked briskly. She also experienced discomfort in her left neck, shoulder, and upper extremity. However, the upper extremity complaints have been present for several years. There was no associated nausea, vomiting, or diaphoresis. On arrival here, the patient's EKG was without ischemic changes. Her initial high sensitivity troponin was undetectable. Due to her cardiac history, hospitalization was recommended. The patient does have a longstanding history of coronary artery disease. She has had 2 stents placed within the LAD. The initial 1 was in 2007, and a 2nd stent was placed in August 2018 because of an in stent restenosis. The patient does not experience exertional angina pectoris or limiting dyspnea. She further denies syncope, presyncope, PND, orthopnea, palpitations, lower extremity edema, and claudication. The patient questions whether her symptoms could be related to her anxiety. She has been under great deal of emotional stress over the last 1-2 weeks due to a situation with her daughter. Currently, patient is resting comfortably med without complaints. Past medical and surgical history 1. Coronary artery disease 2. Proximal LAD stent-2007 3. Proximal LAD stent-August 2018 (in stent restenoses) 4. Mild ischemic [id number]% 5. Moderate mitral regurgitation 6. Hypertension 7. Hypercholesterolemia 8. Asthma 9. Hyperglycemia 10. GERD 11. Vitamin-D deficiency 12. Anxiety 13. Inguinal hernia repair Social history and lives with her No tobacco or alcohol. Family history No early coronary artery disease Review of systems A 10 point review of systems was undertaken and negative except for that described above. Allergies Allergy/AdvReac Type Severity Reaction Status Date / Time sertraline Allergy Intermediate Nausea Verified 06/06/22 09:13 Home Medications Medication Instructions Recorded Confirmed Type aspirin 81 mg chewable tablet 81 mg PO QAM 08/14/18 06/06/22 History coQ10 (ubiquinol) 100 mg capsule 100 mg PO QAM 08/14/18 06/06/22 History cholecalciferol (vitamin D3) 125 5,000 unit PO QAM 03/19/19 06/06/22 History mcg (5,000 unit) tablet (Vitamin D3) fluticasone propionate 110 2 puffs inhalation BID 08/27/19 06/06/22 History mcg/actuation HFA aerosol inhaler (Flovent HFA) metoprolol tartrate 25 mg tablet 25 mg PO Q6H PRN hypertension #60 03/14/20 06/06/22 Rx tabs atorvastatin 80 mg tablet 80 mg PO HS #90 tabs 12/07/21 06/06/22 Rx lisinopril 2.5 mg tablet 2.5 mg PO QAM #90 tabs 12/07/21 06/06/22 Rx nitroglycerin 0.4 mg sublingual 0.4 mg sublingual Q5M PRN chest 12/21/21 06/06/22 Rx tablet pain #25 tabs albuterol sulfate 90 mcg/actuation 1 puff inhalation Q4H PRN 06/04/22 06/06/22 Rx aerosol inhaler shortness of breath or wheezing #8.5 grams escitalopram oxalate 5 mg tablet 5 mg PO QAM #90 tabs 06/04/22 06/06/22 Rx famotidine 40 mg tablet 40 mg PO DAILY #90 tabs 06/04/22 06/06/22 Rx clopidogrel 75 mg tablet 75 mg PO QAM 06/06/22 06/06/22 History Patient History Medical History Acid reflux disease Angina at rest Anxiety disorder Arthralgia of multiple sites Atypical chest pain CAD (coronary artery disease) Chest pain Dyslipidemia Dystonia GERD (gastroesophageal reflux disease) HLD (hyperlipidemia) HTN (hypertension) Left hip pain Left leg numbness Palpitations Past myocardial infarction Presence of stent in artery Vitamin D deficiency Surgical History H/O bilateral salpingo-oophorectomy H/O heart artery stent LAD stent in 2008 with in-stent thrombosis and STEMI in 2018 H/O: hysterectomy S/P arterial stent S/P cardiac catheterization S/P inguinal hernia repair Family History Other Hypertension Denies family history of Crohn's disease Colorectal cancer Ulcerative colitis Social History Smoking Status: Never smoker Second Hand Exposure: No; Hx Alcohol Use: No Hx Substance Use: No Preferred Language: Belarusian Communication Ability: Effective Visual Impairment: No Limitations Hearing Ability: Normal Office Rn Required: No Beliefs That Will Affect Care: None marital status: Current Living Situation: Spouse Feels Safe at Home: Yes Seatbelt Use: always Assistive Devices: None Results & Data ([facility]) Vital Signs (Past 12 Hours) Vital Signs Temp Pulse Pulse Resp BP BP Pulse Ox 06/06/22 10:30 61 15 97 06/06/22 10:30 130/64 06/06/22 10:00 63 20 98 06/06/22 10:00 131/64 06/06/22 09:30 60 15 98 06/06/22 09:30 121/65 06/06/22 09:00 60 16 97 06/06/22 09:00 123/62 06/06/22 08:41 63 14 96 06/06/22 08:41 114/58 L 06/06/22 08:33 06/06/22 08:30 64 18 124/86 98 06/06/22 08:22 06/06/22 08:21 76 17 160/73 H 98 06/06/22 08:08 36.6 C 70 20 145/81 H 98 O2 Del Method 06/06/22 10:30 Room Air 06/06/22 10:30 06/06/22 10:00 Room Air 06/06/22 10:00 06/06/22 09:30 Room Air 06/06/22 09:30 06/06/22 09:00 Room Air 06/06/22 09:00 06/06/22 08:41 Room Air 06/06/22 08:41 06/06/22 08:33 Room Air 06/06/22 08:30 Room Air 06/06/22 08:22 Room Air 06/06/22 08:21 Room Air 06/06/22 08:08 Room Air Laboratory Results CBC notes a hemoglobin of 12.9, hematocrit 39.9, white count 6.85, and platelet count [id number]. Electrolytes note a sodium of 130, potassium 3.7, chloride 104, bicarb 20, BUN 14, creatinine 0.79, glucose of 98. Initial high sensitivity troponin was 4.9 with a follow-up value of 4.8. Diagnostic Findings EKG notes normal sinus rhythm and an old anterolateral myocardial infarction pattern. Chest x-ray notes borderline cardiomegaly but no active disease. PG Care Time/CCT Total # of Minutes Spent Total Time Spent with Patient: Total time spent is greater than 50% in coordination of care (as documented) at patient's floor/unit and/or counseling patient: Coding Level of Care Code 42075 Office/OBS Consult Lvl 4 Diagnoses Chest pain syndrome R07.9 CAD (coronary artery disease) I25.10 Hypertension I10 Hypertension type: unspecified Dyslipidemia E78.5 (1) Hypertension Hypertension type: unspecified Qualified Code(s): I10 - Essential (primary) hypertension
--- NOTE | 2022-06-06 12:57 | Electrocardiogram Report ---
Test Reason : Blood Pressure : / mmHG Vent. Rate : 075 BPM Atrial Rate : 075 BPM P-R Int : 168 ms QRS Dur : 088 ms QT Int : 364 ms P-R-T Axes : 063 079 078 degrees QTc Int : 406 ms Normal sinus rhythm Cannot rule out Inferior infarct , age undetermined Anterolateral infarct (cited on or before 15-AUG-2018) Nonspecific T wave abnormality Abnormal ECG When compared with ECG of 08-JUN-2021 03:43, Nonspecific T wave abnormality, worse in Lateral leads Confirmed by Andrew Crews ([id number]) on 06/06/2022 12:56:58 PM Referred By: NO PCP Confirmed By:Andrew Crews
--- NOTE | 2022-06-06 12:58 | Electrocardiogram Report ---
Test Reason : Blood Pressure : / mmHG Vent. Rate : 064 BPM Atrial Rate : 064 BPM P-R Int : 178 ms QRS Dur : 084 ms QT Int : 434 ms P-R-T Axes : 067 076 088 degrees QTc Int : 447 ms Normal sinus rhythm Anterolateral infarct (cited on or before 15-AUG-2018) Cannot rule out Inferior infarct Abnormal ECG When compared with ECG of 06-JUN-2022 08:15, (unconfirmed) Nonspecific T wave abnormality, improved in Lateral leads Confirmed by Andrew Crews ([id number]) on 06/06/2022 12:58:48 PM Referred By: NO PCP Confirmed By:Andrew Crews
[2022-06-06] MEDS ORDERED: NITROGLYCERIN SL 0.4 MG/TAB TAB SL PRN (13:40)
[2022-06-06] MEDS ORDERED: ALBUTEROL HFA 8 GM INHALER INH PRN (13:40)
[2022-06-06] MEDS: NITROGLYCERIN 2% OINTMENT 30GM TUBE EXT SCH ×2 (16:25→18:42)
[2022-06-06] MEDS ORDERED: ATORVASTATIN 40 MG TAB PO SCH (21:00)
[2022-06-06] MEDS: FLUTICASONE FUROATE 200MCG 14 PUFFS/INHALER INH SCH (21:25)
[2022-06-06] MEDS: METOPROLOL TARTRATE 25 MG TAB PO SCH (21:26)
[2022-06-07] MEDS: NITROGLYCERIN 2% OINTMENT 30GM TUBE EXT SCH ×3 (00:42→13:00)
[2022-06-07] MEDS ORDERED: METOPROLOL TARTRATE 25 MG TAB PO STA (02:05)
[2022-06-07] MEDS ORDERED: ACETAMINOPHEN 500 MG TAB PO STA (02:05)
[2022-06-07] MEDS ORDERED: CHOLECALCIFEROL 5,000 UNITS 125 MCG TAB PO SCH (09:00)
[2022-06-07] MEDS ORDERED: lisinopril 2.5 MG TAB PO SCH (09:00)
[2022-06-07] MEDS ORDERED: CLOPIDOGREL BISULFATE 75 MG TAB PO SCH (09:00)
[2022-06-07] MEDS ORDERED: PANTOprazole 40 MG TAB PO SCH (09:00)
[2022-06-07] MEDS ORDERED: ASPIRIN 81 MG CHEW PO SCH (09:00)
[2022-06-07] MEDS ORDERED: FAMOTIDINE 40 MG TABLET PO SCH (09:00)
[2022-06-07] MEDS ORDERED: ESCITALOPRAM OXALATE 10 MG TAB PO SCH (09:00)
[2022-06-07] MEDS: FLUTICASONE FUROATE 200MCG 14 PUFFS/INHALER INH SCH (09:15)
--- NOTE | 2022-06-07 09:57 | Cardiology Progress Note ---
Date of Service June 07, 2022 Assessment & Plan (1) Chest pain syndrome: Plan: -noncardiac chest pain. -high sensitivity troponins all normal. -continue usual outpatient medications. -echocardiogram this am. -the patient refuses a stress test (anxiety disorder). (2) CAD (coronary artery disease): Plan: -as outlined in consultation note. (3) Hypertension: Plan: -adequate control on current regimen. (4) Dyslipidemia: Plan: -continue atorvastatin. Admission and Anticipated Discharge Date Admission Date: June 06, 2022 Subjective The patient is resting comfortably in bed without complaints chest pain or dyspnea. Physical Exam Physical Exam: In general this is a well-developed well-nourished white female in no acute distress. HEENT exam is negative. Neck is supple with full carotid upstrokes. There are no carotid bruits. No JVD. There is no thyromegaly. Cardiovascular exam reveals a regular rhythm with a normal S1 and S2. No S3, S4, or murmurs are noted. Lungs are clear without rales, rhonchi, or wheezes. Abdomen is soft and nontender without bruits. Extremities reveal intact radial artery and posterior tibial pulses bilaterally. There is no peripheral edema. Results & Data ([facility]) Vital Signs (Past 12 Hours) Vital Signs Temp Pulse Pulse Pulse Resp BP Pulse Ox 06/07/22 07:15 36.7 C 64 16 114/63 95 06/07/22 03:05 36.9 C 60 16 100/60 96 06/07/22 02:05 94 H 146/77 H 06/07/22 01:09 63 06/07/22 00:40 78 120/40 L 06/06/22 23:05 36.5 C 61 16 91/50 L 94 O2 Del Method 06/07/22 07:15 Room Air 06/07/22 03:05 Room Air 06/07/22 02:05 06/07/22 01:09 06/07/22 00:40 06/06/22 23:05 Room Air Laboratory Results Initial high sensitivity troponin was 4.9 with follow-up values of 4.8, 5.0, and 4.5. Diagnostic Findings monitor technician notes sinus rhythm without abnormalities. PG Care Time/CCT Total # of Minutes Spent Total Time Spent with Patient: Total time spent is greater than 50% in coordination of care (as documented) at patient's floor/unit and/or counseling patient: Coding Level of Care Code 94476 Subseq Hosp Care Lvl 3 Diagnoses Chest pain syndrome R07.9 CAD (coronary artery disease) I25.10 Hypertension I10 Hypertension type: unspecified Dyslipidemia E78.5 (1) Hypertension Hypertension type: unspecified Qualified Code(s): I10 - Essential (primary) hypertension
[2022-06-07] MEDS ORDERED: PERFLUTREN LIPID MICROSPHERE (DEFINITY) IV ONE (10:37)
[2022-06-07] MEDS: METOPROLOL TARTRATE 25 MG TAB PO SCH (12:54)
[2022-06-07] MEDS ORDERED: ACETAMINOPHEN 325 MG TAB PO PRN (13:51)
[2022-06-07] MEDS ORDERED: DOCUSATE SODIUM 100 MG CAP PO ONE (13:52)
--- NOTE | 2022-06-07 15:46 | Discharge Summary ---
Date of Service June 07, 2022 Admission HPI Per Admitting Provider Jessica Baxter is a 61 year old female with known coronary artery disease who presents to the ER with chest pain. She reports having two episodes of shortness of breath earlier this week lasting for minutes which is unusual for her. She has also been having left arm pain worse on exertion and relieved with rest just this week. She reports two episodes of chest pain. One last night after going out for a walk lasting only a few minutes and was helped after she took her routine metoprolol and she fell asleep. She woke up with chest pain this morning, 9/10, substernal, relieved with aspirin 324mg and nitroglycerin 0.4mg SL which brought it down to a 5-6/10 until she came to the ER and was given additional nitroglycerin and nitro paste around 8:30am which brought it down to a 0/10. She is currently chest pain free when seen. Associated shortness of breath (which does not happen with her reflux) and nausea but not diaphoresis. She has a significant history of coronary artery disease with myocardial infa rction in 2006; pLAD stent 2006; patent stent 2012, patent stent January 2016; pLAD stent August 2018. She also reports a significant history of gastro-esophageal reflux with associated acidic taste in her mouth. This has been happening this last week and she takes famotidine for this but her current symptoms appear to be different as her reflux is much more positional (worse on lying down), it is more of a burning sensation and she is currently not having associated acidic taste. In the ER she was given 0.4mg nitroglycerin SL and nitro paste 0.5 inch and she is now chest pain free. Initial high sensitivity troponin I is normal. EKG showing T wave flattening in lateral leads - mildly more flattened than prior in May 2021. She was referred to medicine for admission and ongoing managem ent of chest pain. Principal Diagnosis Atypical chest pain Discharge Exam Constitutional WD/WN, vitals as above Eyes + anicteric sclerae; normal pupil size Respiratory normal respiratory effort, lungs clear to auscultation Cardiovascular Rate/Rhythm: regular rate and regular rhythm Heart Sounds: normal S1 and normal S2; no murmur Vessels: no JVD Extremities: normal capillary refill and + pedal edema (trace ankles pitting); no calf tenderness Gastrointestinal (Abdomen) normal bowel sounds, soft, nontender, no hepatosplenomegaly Musculoskeletal no cyanosis or clubbing, extremities motor strength 5/5 Skin no rashes, warm and dry Neurologic moves all extremities and awake; not confused Psychiatric A+Ox3, euthymic affect Discharge Data Allergies Allergy/AdvReac Type Severity Reaction Status Date / Time sertraline Allergy Intermediate Nausea Verified 06/06/22 09:13 Consultations 06/06/22 09:25 ED Decision to Admit Stat 06/06/22 09:54 Consult Cardiology Routine Hospital Course (1) Chest pain, rule out acute myocardial infarction: Jessica Baxter is a 61 year old female observed at [facility] from June 06 - 2021 due to chest pain. This resolved with nitroglycerin given the emergency room as well as started on a 1 inch nitroglycerin patch. Serial high sensitivity troponins I's were normal. Resting echocardiogram showed no new wall motion abnormalities and improved left ventricular ejection fraction. She was reviewed by cardiology and declined stress echocardiogram and chest pain was not suspected to be cardiac. We will start her on isosorbide mononitrate daily since the nitroglycerin appears to help her symptoms regardless of etiology and 1 inch nitro paste in the hospital was maintaining her blood pressure 115/66 on discharge. Her pain may also be due to gastroesophageal reflux and given previous intolerance to pantoprazole and interactions with her clopidogrel will prescribe dexlansoprazole 30mg daily in addition to her famotidine to see if this helps with pains. Potentially the famotidine can be weaned off at a later date but recommend following up with her primary care physician regarding this. She was educated to take this 30 minutes to one hour in the morning prior to eating or other medications. She should follow up with her PCP and food and beverage intern for ongoing management of this chest pain. (2) CAD (coronary artery disease): (3) Hypertension: (4) GERD (gastroesophageal reflux disease): Total Time Total Time Spent Total Time Spent (In Minutes): 40 Discharge Plan Discharge Items Patient Disposition: Home - Self-Care Reason For Visit: CHEST PAIN RULE OUT NE Discharge Diagnosis: Atypical chest pain Activity: Resume your previous activity Non-emergency contact: Primary Care Provider and [place] Operator Call non-emergency contact if: you have any medication questions and your symptoms worsen Follow-up/Referrals: Andrew Crews MD [Physician] - 07/06/22 3:30 pm (follow up chest pain in 2-4 weeks) Brisa Rodríguez MD [Primary Care Provider] - Diet: Heart Healthy Addtl Attending Provider Instructions: You were observed at [facility] from June 06 - 2021 due to chest pain. You had serial cardiac enzymes which were negative ruling out a heart attack and echocardiogram showed no new wall motion abnormalities with improved left ventricular ejection fraction. You were reviewed by cardiology and declined stress echocardiogram. Recommend taking isosorbide mononitrate daily since the nitroglycerin appears to help your symptoms and this is a longer acting nitroglycerin that can be taken every day. You pain may also be due to gastroesophageal reflux and recommend taking dexlansoprazole 30mg daily in addition to your famotidine to see if this helps with your symptoms. Potentially the famotidine can be weaned off at a later date but recommend following up with your primary care physician regarding this. Pending Studies at Discharge: No Stand-Alone Forms: My [facility], Smoking Cessation Medications and DC Order Prescriptions: New dexlansoprazole 30 mg capsule,biphase delayed releas 30 mg PO DAILY Qty: 30 0RF isosorbide mononitrate 30 mg tablet extended release 24 hr 30 mg PO DAILY Qty: 30 0RF Continued atorvastatin 80 mg tablet 80 mg PO HS Qty: 90 3RF lisinopril 2.5 mg tablet 2.5 mg PO QAM Qty: 90 3RF escitalopram oxalate 5 mg tablet 5 mg PO QAM Qty: 90 1RF albuterol sulfate 90 mcg/actuation HFA aerosol inhaler 1 puff INH Q4H PRN (Reason: shortness of breath or wheezing) Qty: 8.5 5RF famotidine 40 mg tablet 40 mg PO DAILY Qty: 90 1RF nitroglycerin 0.4 mg tablet, sublingual 0.4 mg SL Q5M PRN (Reason: chest pain) Qty: 25 5RF metoprolol tartrate 25 mg tablet 25 mg PO Q6H PRN (Reason: hypertension) Qty: 60 3RF Rx Instructions: Patient has 100mg tabs, she cuts them into 4 and takes 25mg as she needs. aspirin 81 mg Tablet,Chewable 81 mg PO QAM coQ10 (ubiquinol) 100 mg Capsule 100 mg PO QAM cholecalciferol (vitamin D3) [Vitamin D3] 5,000 unit Tablet 5,000 unit PO QAM fluticasone propionate [Flovent HFA] 110 mcg/actuation HFA aerosol inhaler 2 puffs INH BID clopidogrel 75 mg tablet 75 mg PO QAM Discharge Orders: Discharge Order (Routine); Ordered 06/07/22 Ordered By: Nick Healy Admission Data Admit Date/Time: 06/06/22 09:59 Attending Provider: Nick Healy Admit Provider: Nick Healy Primary Care Provider: Brisa Rodríguez V. Other Providers: Nick Healy ; Andrew Crews Other Interventions: Discharge Summary Assessment (RN) Last Done: 06/07/22 16:09 Coding Level of Care Code 75152 OBS Care - Discharge Diagnoses Chest pain, rule out acute myocardial infarction R07.9 CAD (coronary artery disease) I25.10 Hypertension I10 Hypertension type: unspecified GERD (gastroesophageal reflux disease) K21.9 Esophagitis presence: esophagitis presence not specified
== END 2022-06-07 17:23 | disposition home or self-care (01) ==
LOC: EDINP 08:05 → ED 08:05 → 2S 13:41

== ENCOUNTER 2024-07-06 03:01 | Observation (INO) ==
--- NOTE | 2024-07-06 03:10 | Emergency Department Note ---
Impression & Plan Chest pain, H/O heart artery stent, CAD (coronary artery disease) ED Provider Note CHIEF COMPLAINT: Chest pain HISTORY OF PRESENTING ILLNESS: This 63-year-old female patient presents to the emergency department with her for evaluation of chest pain. The patient started with chest pain and tightness in her chest yesterday afternoon/evening. The pain resolved and then she woke up with the symptoms again at 1 AM this morning. The symptoms radiate into the left arm at times. The pain in her chest is intermittent. The patient states that she normally has high blood pressure, but her blood pressure seemed to be low with the chest pain, but then went high again. She rates her discomfort as 8/10. She took 81 mg ASA x 2. She is also on Plavix due to an TN with stents in 2019. She did not take any of her NTG for the symptoms. She has taken her isosorbide which seemed to help with the pain. She also continues with her metoprolol and lisinopril as prescribed for her HTN. She follows with Dr. Crews of cardiology. Denies abdominal pain, nausea, or vomiting. Denies fevers, cough, or URI symptoms. She denies tobacco use or vaping. The patient's blood pressure was initially 163/96 in triage, but in the exam room her blood pressure was 121/82. REVIEW OF SYSTEMS: See HPI for pertinent positives and pertinent negatives. ALLERGIES: Sertraline MEDICATIONS: See below PAST MEDICAL HISTORY: See below PHYSICAL EXAM: VITALS: Vitals are noted on the nurse's note and reviewed by myself. GENERAL: Non toxic, no acute distress, non-diaphoretic. SKIN: Capillary refill <2 sec. EYES: PERRLA. EOMI. Conjunctivae without injection, sclerae without icterus. NOSE: Patent without discharge. MOUTH: Mucous membranes moist. Uvula midline. Airway patent. NECK: Supple without nuchal rigidity. HEART: Regular rate and rhythm without murmurs gallops or rubs. LUNGS: Clear to auscultation bilaterally without wheezes, rales or rhonchi. No retractions or accessory muscle use. ABDOMEN: Positive bowel sounds x 4. Normal tympanic percussion. Soft, nontender. No masses or organomegaly. Barlow sign negative. No guarding or rebound tenderness. No focal RLQ or LLQ tenderness. MUSCULOSKELETAL: No gross musculoskeletal defects. Bilateral lower extremities without edema, erythema, warmth, or cording. Peripheral pulses 2+ and equal in the bilateral upper and lower extremities. NEURO: Patient was alert and oriented. No focal neurological deficits. DIFFERENTIAL DIAGNOSIS: Differential diagnosis includes angina, TN, pericarditis, myocarditis, aortic dissection, pleurisy, pneumothorax, PE, pneumonia, pneumomediastinum, esophagitis, esophageal spasm, GERD, perforated esophagus, perforated duodenal/gastric ulcer, pancreatitis, cholecystitis, costochondritis, musculoskeletal, bronchitis, URI, or others. ED COURSE AND MEDICAL DECISION MAKING: HISTORY FROM INDEPENDENT HISTORIAN: Additional history was obtained from the patient's MONITOR: Continuous nurse monitoring: Order was placed for continuous nurse monitoring. Patient was placed on the nurse monitoring and continuous pulse ox. Patient was noted to be in normal sinus rhythm at an initial rate of 80 bpm per my interpretation. EKG: EKG was interpreted by myself as normal sinus rhythm at 63 bpm with no acute ST or T wave changes and no significant change from her previous EKG. INTERPRETATION OF LABS: I interpreted the labs with full lab results as below in the lab section of this note. Pertinent lab results discussed in the MDM section below. INTERPRETATION OF IMAGING: Chest x-ray per my interpretation showed no acute cardiopulmonary etiology. Radiology report is still pending. CONSULTATIONS: On-call hospitalist MDM SUMMARY: I examined the patient. The patient started with chest pain yesterday afternoon/evening. Sometimes the pain radiates into her left arm. Symptoms got worse overnight and woke her from sleep around 1 or 2 AM. The patient took 2 baby aspirin and she is on Plavix. Due to history of TN with stents in 2019. After discussion with Dr. Lambert, no additional aspirin was given at this time. The patient is currently chest pain-free in the ER and she declines any medication for her symptoms. There is currently a severe shortage of IV fluids. The patient's condition was assessed and did not meet hospital criteria for IV fluid administration at this time. Therefore, IV fluids were not given. An IV lock was placed and labs were drawn. CBC without leukocytosis, anemia, or thrombocytopenia. Coags were normal. Glucose 103, but CMP otherwise normal. Lipase normal. Magnesium normal. High-sensitivity troponin x 2 were normal. Urinalysis with trace blood, but otherwise normal. Chest x-ray per my interpretation showed no acute cardiopulmonary etiology. Radiology report is still pending. I had a meaningful discussion about this patient with Dr. Lambert who agrees with my assessment and the treatment plan. Due to the patient's chest pain symptoms, her previous cardiac history, and improvement of her symptoms with isosorbide, we feel the patient requires admission for further evaluation and treatment. I spoke with the on-call hospitalist who agreed to admit the patient for further management. Please refer to their dictation for further details. The patient's care was transferred in stable condition. DIAGNOSIS: Chest pain Past Med/Surg History Problem List (Updated 07/07/24 @ 03:17 by Ella Harris PA-C) Chest pain (Acute) Ischemic cardiomyopathy Angina pectoris, unstable H/O malignant neoplasm of endometrium Anxiety disorder Hypertension (Acute) CAD (coronary artery disease) (Acute) Positive colorectal cancer screening using Cologuard test (Acute) Vitamin D deficiency (Acute) Palpitations (Acute) Dyslipidemia (Acute) Arthralgia of multiple sites (Acute) GERD (gastroesophageal reflux disease) H/O heart artery stent LAD stent in 2007 with in-stent thrombosis and STEMI in 2018 Medical History (Updated 07/07/24 @ 03:17 by Ella Harris PA-C) History of placement of stent in LAD coronary artery (2006) Presence of stent in LAD coronary artery (2017) Chest pain, rule out acute myocardial infarction Endometrial adenocarcinoma 2019. Per GynOnc: Needs Q6mo pelvic exam x3 years then annual. History of postmenopausal bleeding Systolic heart failure Lab test negative for COVID-19 virus Chest pain Chest pain syndrome Atypical chest pain Presence of stent in artery Past myocardial infarction Left leg numbness Left hip pain Dystonia Acid reflux disease GERD (gastroesophageal reflux disease) Angina at rest CAD (coronary artery disease) HLD (hyperlipidemia) HTN (hypertension) Chest pain Surgical History (Updated 07/07/24 @ 03:17 by Ella Harris PA-C) H/O bilateral salpingo-oophorectomy H/O: hysterectomy S/P arterial stent S/P inguinal hernia repair S/P cardiac catheterization Family History Mother Myocardial infarction Father Myocardial infarction Other Hypertension Denies family history of Ovarian cancer Prostate cancer Crohn's disease Breast cancer Lung cancer Colorectal cancer Ulcerative colitis Stroke Social History Smoking Status: Never smoker Second Hand Exposure: No; Do You Dip or Chew Tobacco: No; Hx Alcohol Use: No Hx Substance Use: No Preferred Language: [place] Citizen Communication Ability: Effective Visual Impairment: No Limitations Hearing Ability: Normal Registration Clerk Required: No Beliefs That Will Affect Care: None marital status: Current Living Situation: Spouse Feels Safe at Home: Yes Seatbelt Use: always Assistive Devices: None Allergies Allergies Allergy/AdvReac Type Severity Reaction Status Date / Time sertraline Allergy Intermediate Nausea Verified 07/06/24 08:38 Home Meds Home Medications Medication Instructions Recorded Confirmed aspirin 81 mg chewable tablet 81 mg PO QAM 08/14/18 07/06/24 cholecalciferol (vitamin D3) 125 5,000 unit PO QAM 03/19/19 07/06/24 mcg (5,000 unit) tablet (Vitamin D3) fluticasone propionate 110 2 puffs inhalation BID 08/27/19 07/06/24 mcg/actuation HFA aerosol inhaler (Flovent HFA) Previous Rx's Medication Instructions Recorded albuterol sulfate 90 mcg/actuation 1 puff inhalation Q4H PRN 06/04/22 aerosol inhaler shortness of breath or wheezing #8.5 grams dexlansoprazole 30 mg 30 mg PO DAILY #90 caps 08/04/23 capsule,biphase delayed release famotidine 40 mg tablet 40 mg PO DAILY #90 tabs 08/04/23 escitalopram oxalate 5 mg tablet 5 mg PO QAM #90 tabs 11/18/23 atorvastatin 80 mg tablet 80 mg PO HS #90 tabs 02/29/24 clopidogrel 75 mg tablet 75 mg PO QAM #90 tabs 02/29/24 isosorbide mononitrate 30 mg 30 mg PO DAILY #90 tabs 02/29/24 tablet,extended release 24 hr lisinopril 2.5 mg tablet 2.5 mg PO QAM #90 tabs 02/29/24 metoprolol tartrate 25 mg tablet 25 mg PO Q6H PRN hypertension #90 02/29/24 tabs nitroglycerin 0.4 mg sublingual 0.4 mg sublingual Q5M PRN chest 02/29/24 tablet pain #25 tabs Results & Data (ED) Vital Signs Vital Signs - 24 hr 07/06/24 03:30 07/06/24 03:43 07/06/24 03:58 Pulse Rate 75 72 Pulse Rate from SpO2 Sensor 77 Respiratory Rate 16 20 Blood Pressure 168/90 H Blood Pressure Mean 135 Pulse Oximetry 98 97 97 Oxygen Delivery Method Room Air Room Air Oxygen Flow Rate 0 0 07/06/24 04:00 07/06/24 04:30 07/06/24 05:00 Pulse Rate 67 66 63 Pulse Rate from SpO2 Sensor 67 64 63 Respiratory Rate 19 19 18 Blood Pressure 137/72 139/71 137/81 Blood Pressure Mean 93 111 99 Pulse Oximetry 98 99 98 Oxygen Delivery Method Oxygen Flow Rate 07/06/24 06:00 Pulse Rate 63 Pulse Rate from SpO2 Sensor 63 Respiratory Rate 19 Blood Pressure 126/73 Blood Pressure Mean 104 Pulse Oximetry 97 Oxygen Delivery Method Oxygen Flow Rate Laboratory Data 07/07/24 02:36 07/07/24 02:36 Lab Results 07/06/24 Range/Units 03:40 WBC 7.89 (4.8-10.8) K/ul RBC 4.51 (4.20-5.40) M/uL Hgb 13.1 (12.0-16.0) g/dl Hct 39.7 (37.0-47.0) % MCV 88.0 (80.0-100.0) fL MCH 29.0 (25.0-34.0) pg MCHC 33.0 (32.0-36.0) g/dL RDW Std Deviation 43.0 (36.4-46.3) fL RDW Coeff of [place] 13.3 (11.5-14.5) % Plt Count 257 (130-400) K/uL MPV 9.6 (9.4-12.4) fL Immature Gran % (Auto) 0.1 % Neut % (Auto) 46.4 % Lymph % (Auto) 43.5 % [place] % (Auto) 7.4 % Eos % (Auto) 1.5 % Baso % (Auto) 1.1 % Neut # (Auto) 3.66 (1.40-6.50) K/uL Lymph # (Auto) 3.43 H (1.20-3.40) K/uL [place] # (Auto) 0.58 (0.11-0.59) K/uL Eos # (Auto) 0.12 (0.00-0.50) K/uL Baso # (Auto) 0.09 (0.00-0.20) K/uL Immature Gran # (Auto) 0.01 (0.01-0.20) K/uL PT 10.2 (9.0-12.0) Seconds INR 0.9 (0.9-1.1) APTT 25 (21-31) Seconds PTT Ratio 0.9 Sodium 141 (136-145) mmol/L Potassium 3.8 (3.5-5.1) mmol/L Chloride 107 (98-107) mmol/L Carbon Dioxide 27 (21-32) mmol/L Anion Gap 7 (3-11) BUN 14 (6-23) mg/dl Creatinine 0.85 (0.6-1.2) mg/dl Est Cr Clr Drug Dosing 56.6 ml/min eGFR 76.93 BUN/Creatinine Ratio 16.5 (10-20) Glucose 103 H (70-99(Fasting)) mg/dl Calcium 9.4 (8.6-10.3) mg/dl Magnesium 2.1 (1.7-2.4) mg/dl Total Bilirubin 0.4 (0.2-1.0) mg/dl AST 11 L (13-39) U/L ALT 9 (7-52) U/L Alkaline Phosphatase 66 (34-104) U/L Troponin I High Sens 5.4 (0-14) pg/ml Total Protein 7.2 (6.0-8.3) gm/dl Albumin 4.2 (3.4-5.0) gm/dl Globulin 3.0 (2.5-4.0) gm/dl Albumin/Globulin Ratio 1.4 (0.9-2) Lipase 19 (11-82) U/L Urine Color Yellow Urine Appearance Clear (Clear) Urine pH 7.0 (4.5-7.5) Ur Specific [place] 1.003 (1.000-1.030) Urine Protein Negative (Negative) Urine Glucose (UA) Negative (Negative) Urine Ketones Negative (Negative) Urine Blood Trace H (Negative) Urine Nitrite Negative (Negative) Urine Bilirubin Negative (Negative) Urine Urobilinogen Negative (Negative) Ur Leukocyte Esterase Negative (Negative) Urine WBC (Auto) 0-5 (0-5) /hpf Urine RBC (Auto) 0-2 (0-2) /hpf U Hyaline Cast (Auto) 0-2 (0-2) /lpf U Epithel Cells (Auto) 0-2 (0-2) /hpf Urine Bacteria (Auto) None Seen (None Seen) Administered Medications Aspirin (Aspirin 81 Mg Chew) 81 mg PO QAM [facility] Stop: 08/05/24 09:22 Last Admin: 07/06/24 10:20 Dose: Not Given Documented By: TREMAYNE Atorvastatin Calcium (Atorvastatin 40 Mg Tab) 80 mg PO [facility] Stop: 08/05/24 20:59 Last Admin: 07/06/24 19:49 Dose: 80 mg Documented By: KRYSTYNA Clopidogrel Bisulfate ([facility]opidogrel Bis[facility] 75 Mg Tab) [facility] [place]: 08/05/24 09:22 Last Admin: 07/06/24 11:12 Dose: Not Given Documented By: TREMAYNE Escitalopram Oxalate (Escitalopram Oxalate 10 Mg Tab) 5 mg PO [facility] Stop: 08/05/24 08:59 Last Admin: 07/06/24 10:48 Dose: 5 mg Documented By: TREMAYNE Famotidine (Famotidine 40 Mg Tablet) 40 mg PO DAILY [facility] Stop: 08/05/24 09:22 Last Admin: 07/06/24 11:03 Dose: Not Given Documented By: TREMAYNE Fluticasone Furoate (Fluticasone Furoate 200mcg 14 Puffs/Inhaler) 1 puffs INH DAILY [facility] Stop: 08/05/24 09:59 Last Admin: 07/06/24 10:22 Dose: Not Given Documented By: TREMAYNE Lisinopril (Lisinopril 2.5 Mg Tab) 2.5 mg PO [facility] Stop: 08/05/24 09:22 Last Admin: 07/06/24 10:53 Dose: 2.5 mg Documented By: TREMAYNE Ondansetron HCl (Ondansetron Inj 2 Mg/Ml 2 Ml Vial) 4 mg IV Q6H PRN PRN Reason: Nausea Stop: 08/05/24 09:22 Last Admin: 07/07/24 01:55 Dose: 4 mg Documented By: KRYSTYNA Pantoprazole Sodium (Pantoprazole 40 Mg Tab) 40 mg PO DAILY [facility]; Protocol Stop: 08/05/24 09:59 Last Admin: 07/06/24 10:54 Dose: 40 mg Documented By: TREMAYNE Vitamin D (Cholecalciferol 125 Mcg (5,000 Units) Tab) 125 mcg PO QAM [facility] Stop: 08/05/24 09:22 Last Admin: 07/06/24 10:49 Dose: 125 mcg Documented By: TREMAYNE Discontinued Medications Fentanyl Citrate (Fentanyl Citrate Pf 100 Mcg/2 Ml Vial) Confirm Administered Dose 100 mcg .ROUTE .STK-MED ONE Stop: 07/06/24 14:08 Last Increment: 07/06/24 14:51 Dose: 50 mcg Documented By: ALECIA Heparin Sodium (Porcine) (Heparin (Porcine) 1000 Unit/Ml 10 Ml (Welt Sewer Use Only)) Confirm Administered Dose 10,000 units .ROUTE .STK-MED ONE Stop: 07/06/24 14:08 Last Admin: 07/06/24 14:51 Dose: 5,000 units Documented By: ALECIA Heparin Sodium/Sodium Chloride (Heparin In Nss Infusion 1000 Unit/500 Ml (2 U/Ml) Bag) Confirm Administered Dose 3,000 units IV .STK-MED ONE Stop: 07/06/24 14:09 Last Admin: 07/06/24 14:46 Dose: 3,000 units Documented By: KRYSTLE Potassium Chloride/Sodium Chloride (Normal Saline W/20 Meq Kcl) 20 meq in 1,000 mls @ 80 mls/hr IV .[id number] [facility] Stop: 07/06/24 15:37 Last Infusion: 07/06/24 18:50 Dose: Infused Documented By: Infusion: 07/06/24 15:29 Dose: 80 mls/hr Documented By: Infusion: 07/06/24 13:47 Dose: 0 mls/hr Documented By: Admin: 07/06/24 10:48 Dose: 80 mls/hr Documented By: TREMAYNE Ioversol (Optiray 350) Confirm Administered Dose 1 ml .ROUTE .STK-MED ONE Stop: 07/06/24 14:09 Last Admin: 07/06/24 14:51 Dose: 55 ml Documented By: KRYSTLE Isosorbide Mononitrate (Isosorbide [place] Extended Rel 30 Mg Tabcr) 30 mg PO DAILY [facility] Stop: 08/05/24 09:22 Last Admin: 07/06/24 10:21 Dose: Not Given Documented By: TREMAYNE Midazolam HCl (Midazolam Hcl 1 Mg/Ml 2ml Vial) Confirm Administered Dose 2 mg .ROUTE .STK-MED ONE Stop: 07/06/24 14:08 Last Admin: 07/06/24 14:51 Dose: 2 mg Documented By: ALECIA Nicardipine HCl (Nicardipine Hcl Inj 2.5 Mg/Ml 10 Ml Amp) Confirm Administered Dose 25 mg .ROUTE .STK-MED ONE Stop: 07/06/24 14:09 Last Admin: 07/06/24 14:46 Dose: 25 mg Documented By: KRYSTLE Nitroglycerin/Dextrose (Nitroglycerin/D5w 100mcg/Ml 20ml Syr) Confirm Administered Dose 2,000 mcg .ROUTE .[employer] ONE Stop: 07/06/24 14:09 Last Admin: 07/06/24 14:47 Dose: 2,000 mcg Documented By: KRYSTLE Discharge Plan Visit Data Chief Complaint: Chest Pain Stated Complaint: HYPERTENSION, CHEST PAIN ED Provider: Akil Lambert ED Midlevel Provider: Ella Harris Discharge Problem: Chest pain, H/O heart artery stent, CAD (coronary artery disease) Patient Disposition: Admitted As Inpatient Condition: Good Discharge Instructions Interventions: ED Discharge Assessment Last Done: 07/06/24 08:55 Discharge Problem: Chest pain Qualifiers: Chest pain type: unspecified Qualified Code(s): R07.9 - Chest pain, unspecified
[2024-07-06 04:02] LABS: Appearance Urine Clear (Clear); Bacteria Urine Automated None Seen (None Seen); Bilirubin Urine Negative (Negative); Blood Urine Trace (Negative); Cast Urine Automated 0-2 /lpf (0-2); Color Urine Yellow; Epithelial Cell Urine Auto 0-2 /hpf (0-2); Glucose Urine UA Negative (Negative); Ketones Urine Negative (Negative); Leukocyte Esterase Urine Negative (Negative); Nitrite Urine Negative (Negative); Protein Urine Negative (Negative); RBC Urine Automated 0-2 /hpf (0-2); Specific Gravity Urine 1.003 (1.000-1.030); Urobilinogen Urine Negative (Negative); WBC Urine Automated 0-5 /hpf (0-5)
[2024-07-06 04:06] LABS: Basophils # (auto) 0.09 K/uL (0.00-0.20); Basophils % (auto) 1.1 %; Eosinophils # (auto) 0.12 K/uL (0.00-0.50); Eosinophils % (auto) 1.5 %; Hematocrit (blood only) 39.7 % (37.0-47.0); Hemoglobin 13.1 g/dl (12.0-16.0); Immature Granulocytes # (auto) 0.01 K/uL (0.01-0.20); Immature Granulocytes % (auto) 0.1 %; Lymphocytes # (auto) 3.43 K/uL (1.20-3.40); Lymphocytes % (auto) 43.5 %; Mean Platelet Volume 9.6 fL (9.4-12.4); Monocytes # (auto) 0.58 K/uL (0.11-0.59); Monocytes % (auto) 7.4 %; Neutrophils # (auto) 3.66 K/uL (1.40-6.50); Neutrophils % (auto) 46.4 %; Platelet Count 257 K/uL (130-400); RDW Coefficient of Variation 13.3 % (11.5-14.5); Red Blood Count 4.51 M/uL (4.20-5.40); White Blood Count 7.89 K/ul (4.8-10.8)
[2024-07-06 04:20] LABS: INR 0.9 (0.9-1.1); Partial Thromboplastin Ratio 0.9; Partial Thromboplastin Time 25 Seconds (21-31); Prothrombin Time 10.2 Seconds (9.0-12.0)
[2024-07-06 04:53] LABS: Albumin Globulin Ratio 1.4 (0.9-2); Albumin Level 4.2 gm/dl (3.4-5.0); BUN Creatinine Ratio 16.5 (10-20); Bilirubin,Total 0.4 mg/dl (0.2-1.0); Calcium 9.4 mg/dl (8.6-10.3); Creatinine Clr Calc Pharmacy 56.6 ml/min; Magnesium 2.1 mg/dl (1.7-2.4); Potassium 3.8 mmol/L (3.5-5.1); Total Protein 7.2 gm/dl (6.0-8.3)
[2024-07-06 04:59] LABS: Troponin I High Sensitivity 5.4 pg/ml (0-14)
--- NOTE | 2024-07-06 05:17 | Emergency Department Note ---
ED Visit Note ED Physician Supervisory Note & Attestation: I was consulted by the Advanced Practice Provider, Ella Harris. I personally made/approved the management plan and take responsibility for the patient management. I performed a substantive portion of the visit. This includes the aspects of: MDM: Intermittent chest pain over the last evening. Known history of CAD. Initial workup unremarkable. Given history hospitalization would be indicated for cardiac rule out. Imaging: X ray results are stated below per my interpretation: Chest: 1 view: No infiltrate, no effusion, normal cardiac border. Sr. Director Discussions: Reviewed with hospitalist Dr. Ponce who will further evaluate for management and cardiac rule out Akil Lambert MD
--- NOTE | 2024-07-06 06:39 | History & Physical Report ---
Date of Service July 06, 2024 Assessment & Plan (1) Angina pectoris, unstable: (2) CAD (coronary artery disease): (3) H/O heart artery stent: (4) Hypertension: (5) GERD (gastroesophageal reflux disease): (6) Anxiety disorder: Plan Unstable angina/CAD/history of OK/history of coronary artery stent- Initial troponin normal at 5.4 Most recent echocardiogram from 06/07/2022 shows ejection fraction 40-45% and abnormal motion consistent with mid LAD [place] EKG unchanged compared to previous, showing normal sinus rhythm with old anterolateral infarct The patient will be admitted to telemetry for serial cardiac enzymes, serial EKG's, cardiac rhythm monitoring and a 2-D echocardiogram with Dopplers. Continue aspirin 81 mg every morning, clopidogrel 75 mg every morning, isosorbide mononitrate 30 mg every morning, lisinopril 2.5 mg every morning, and metoprolol tartrate 25 mg p.o. every 6 hours Nitroglycerin sublingual 0.4 mg every 5 minutes as needed chest pain NSS + KCl 20 mill equivalents at 80 mL/h x 500 mL Consult cardiology Patient will not be anticoagulated at this time, as cardiology should be in to see her in a few hours GERD- Continue deslansoprazole/pantoprazole Anxiety- Continue escitalopram History of Present Illness Chief Complaint: The patient presents to the emergency department with worsening chest discomfort over the last 2 mornings. Her initial discomfort began on Tuesday, which primarily was left-sided chest pain without radiation that was self- limited, but did occur intermittently throughout the day, relieved by rest. She was woken up morning by chest discomfort that was more intense, but was again self-limited, and she reports that when she checked her blood pressure this time it was lower than usual. Tomorrow reports her blood pressure remained in the 90/50 category throughout the day on . She did go to sleep evening, and woke up this morning, Tuesday with severe left- sided chest pain which now radiates to her left arm, her pressure was 150/80 at this point, and she decided to come to the emergency department. She has been taking her medications as directed by her human resources vice president Dr. Crews. She reports these symptoms are worse than the ones that she had 5 years ago when she had a heart attack Primary Care Provider: Brisa Rodríguez MD The patient is a 63-year-old female with a past medical history artery disease history of LAD territory OK about 5 years ago, hypertension, anxiety disorder, history of malignant neoplasm of the endometrium, and D deficiency, dyslipidemia, GERD and history of coronary artery stent. She presents to the emergency department with symptoms of unstable angina as noted above. At the time my examination, the her chest pain has resolved completely. She does report having some intermittent nausea prior to arrival to the ED as well. She reports she has had decreased oral intake over the past few days, as she feels that her body has not felt right Allergies Allergy/AdvReac Type Severity Reaction Status Date / Time sertraline Allergy Intermediate Nausea Verified 02/29/24 09:56 Home Medications Medication Instructions Recorded Confirmed Type aspirin 81 mg chewable tablet 81 mg PO QAM 08/14/18 02/29/24 History coQ10 (ubiquinol) 100 mg capsule 100 mg PO QAM 08/14/18 02/29/24 History cholecalciferol (vitamin D3) 125 5,000 unit PO QAM 03/19/19 02/29/24 History mcg (5,000 unit) tablet (Vitamin D3) fluticasone propionate 110 2 puffs inhalation BID 08/27/19 02/29/24 History mcg/actuation HFA aerosol inhaler (Flovent HFA) albuterol sulfate 90 mcg/actuation 1 puff inhalation Q4H PRN 06/04/22 02/29/24 Rx aerosol inhaler shortness of breath or wheezing #8.5 grams dexlansoprazole 30 mg 30 mg PO DAILY #90 caps 08/04/23 02/29/24 Rx capsule,biphase delayed release famotidine 40 mg tablet 40 mg PO DAILY #90 tabs 08/04/23 02/29/24 Rx escitalopram oxalate 5 mg tablet 5 mg PO QAM #90 tabs 11/18/23 02/29/24 Rx atorvastatin 80 mg tablet 80 mg PO HS #90 tabs 02/29/24 02/29/24 Rx clopidogrel 75 mg tablet 75 mg PO QAM #90 tabs 02/29/24 02/29/24 Rx isosorbide mononitrate 30 mg 30 mg PO DAILY #90 tabs 02/29/24 02/29/24 Rx tablet,extended release 24 hr lisinopril 2.5 mg tablet 2.5 mg PO QAM #90 tabs 02/29/24 02/29/24 Rx metoprolol tartrate 25 mg tablet 25 mg PO Q6H PRN hypertension #90 02/29/24 02/29/24 Rx tabs nitroglycerin 0.4 mg sublingual 0.4 mg sublingual Q5M PRN chest 02/29/24 02/29/24 Rx tablet pain #25 tabs Past Med/Surg History Problem List Angina pectoris, unstable H/O malignant neoplasm of endometrium Anxiety disorder Hypertension (Acute) CAD (coronary artery disease) Positive colorectal cancer screening using Cologuard test (Acute) Vitamin D deficiency (Acute) Palpitations (Acute) Dyslipidemia (Acute) Arthralgia of multiple sites (Acute) GERD (gastroesophageal reflux disease) H/O heart artery stent LAD stent in 2007 with in-stent thrombosis and STEMI in 2018 Medical History Angina pectoris, unstable Chest pain, rule out acute myocardial infarction Endometrial adenocarcinoma History of postmenopausal bleeding Systolic heart failure Lab test negative for COVID-19 virus Chest pain Chest pain syndrome Atypical chest pain Vitamin D deficiency Presence of stent in artery Past myocardial infarction Palpitations Left leg numbness Left hip pain Dystonia Dyslipidemia Arthralgia of multiple sites Anxiety disorder Acid reflux disease GERD (gastroesophageal reflux disease) Angina at rest CAD (coronary artery disease) HLD (hyperlipidemia) HTN (hypertension) Chest pain Surgical History H/O bilateral salpingo-oophorectomy H/O: hysterectomy S/P arterial stent S/P inguinal hernia repair S/P cardiac catheterization Family History Mother Myocardial infarction Father Myocardial infarction Other Hypertension Denies family history of Ovarian cancer Prostate cancer Crohn's disease Breast cancer Lung cancer Colorectal cancer Ulcerative colitis Stroke Social History Smoking Status: Never smoker Second Hand Exposure: No; Do You Dip or Chew Tobacco: No; Hx Alcohol Use: No Hx Substance Use: No Preferred Language: Belgian Communication Ability: Effective Visual Impairment: No Limitations Hearing Ability: Normal Accounting Advisory Services Manager Required: No Beliefs That Will Affect Care: None marital status: Current Living Situation: Spouse Feels Safe at Home: Yes Seatbelt Use: always Assistive Devices: None Review of Systems Review of Systems: The patient denies cough, lower extremity swelling, sore throat, fevers, chills, sweats, weight change, fatigue, vomiting, diarrhea , constipation, abdominal pain, pelvic pain, blood in urine or stool, dysuria, urinary frequency or urgency, lightheadedness, dizziness, headache, memory loss, loss of consciousness, rash, abnormal bruising or bleeding, imbalance, focal or generalized weakness, numbness or tingling in right arm or bilateral legs, generalized arthralgias or myalgias, back or neck pain, or night sweats. The review of systems is otherwise negative other than for that already noted above, and at least 10 systems have been reviewed. Physical Exam Physical Exam: The patient is awake, alert and oriented 3, well developed and well nourished, normocephalic and atraumatic, lying in bed and in no acute distress. HEENT--PERRL, EOMI, mucous membranes and oropharynx mildly dry. Neck--supple. No JVD. No bruits. Thyroid normal, trachea midline, no ad enopathy. Heart--normal S1 and S2. No murmurs, rubs or gallops. Lungs--clear bilaterally, no respiratory distress, no accessory muscle use. Abdomen--normal bowel sounds and soft. Nontender. Nondistended, no hernias or masses, no organomegaly. Extremities--no cyanosis or clubbing. No edema. Dermatologic--normal skin turgor, normal color, no abnormal lymph nodes, no rash. Neurologic--cranial nerves II through XII grossly intact. Rheumatologic--normal range of motion. Psychiatric--normal affect. Results & Data Results & Data Vital Signs (Past 12 Hours) Vital Signs Temp Pulse Resp BP Pulse Ox O2 Del Method O2 Flow Rate 07/06/24 06:00 63 19 126/73 97 07/06/24 05:00 63 18 137/81 98 07/06/24 04:30 66 19 139/71 99 07/06/24 04:00 67 19 137/72 98 07/06/24 03:58 97 Room Air 0 07/06/24 03:43 72 20 97 Room Air 0 07/06/24 03:30 75 16 168/90 H 98 07/06/24 03:04 36.7 C 85 18 163/96 H 100 Room Air Laboratory Results Laboratory Results WBC 7.89 K/ul (4.8-10.8) 07/06/24 03:40 RBC 4.51 M/uL (4.20-5.40) 07/06/24 03:40 Hgb 13.1 g/dl (12.0-16.0) 07/06/24 03:40 Hct 39.7 % (37.0-47.0) 07/06/24 03:40 MCV 88.0 fL (80.0-100.0) 07/06/24 03:40 MCH 29.0 pg (25.0-34.0) 07/06/24 03:40 MCHC 33.0 g/dL (32.0-36.0) 07/06/24 03:40 RDW Std Deviation 43.0 fL (36.4-46.3) 07/06/24 03:40 RDW Coeff of [place] 13.3 % (11.5-14.5) 07/06/24 03:40 Plt Count 257 K/uL (130-400) 07/06/24 03:40 MPV 9.6 fL (9.4-12.4) 07/06/24 03:40 Immature Gran % (Auto) 0.1 % 07/06/24 03:40 Neut % (Auto) 46.4 % 07/06/24 03:40 Lymph % (Auto) 43.5 % 07/06/24 03:40 [place] % (Auto) 7.4 % 07/06/24 03:40 Eos % (Auto) 1.5 % 07/06/24 03:40 Baso % (Auto) 1.1 % 07/06/24 03:40 Neut # (Auto) 3.66 K/uL (1.40-6.50) 07/06/24 03:40 Lymph # (Auto) 3.43 K/uL (1.20-3.40) H 07/06/24 03:40 [place] # (Auto) 0.58 K/uL (0.11-0.59) 07/06/24 03:40 Eos # (Auto) 0.12 K/uL (0.00-0.50) 07/06/24 03:40 Baso # (Auto) 0.09 K/uL (0.00-0.20) 07/06/24 03:40 Immature Gran # (Auto) 0.01 K/uL (0.01-0.20) 07/06/24 03:40 PT 10.2 Seconds (9.0-12.0) 07/06/24 03:40 INR 0.9 (0.9-1.1) 07/06/24 03:40 APTT 25 Seconds (21-31) 07/06/24 03:40 PTT Ratio 0.9 07/06/24 03:40 Sodium 141 mmol/L (136-145) 07/06/24 03:40 Potassium 3.8 mmol/L (3.5-5.1) 07/06/24 03:40 Chloride 107 mmol/L (98-107) 07/06/24 03:40 Carbon Dioxide 27 mmol/L (21-32) 07/06/24 03:40 Anion Gap 7 (3-11) 07/06/24 03:40 BUN 14 mg/dl (6-23) 07/06/24 03:40 Creatinine 0.85 mg/dl (0.6-1.2) 07/06/24 03:40 Est Cr Clr Drug Dosing 56.6 ml/min 07/06/24 03:40 eGFR 76.93 07/06/24 03:40 BUN/Creatinine Ratio 16.5 (10-20) 07/06/24 03:40 Glucose 103 mg/dl (70-99(Fasting)) H 07/06/24 03:40 Calcium 9.4 mg/dl (8.6-10.3) 07/06/24 03:40 Magnesium 2.1 mg/dl (1.7-2.4) 07/06/24 03:40 Total Bilirubin 0.4 mg/dl (0.2-1.0) 07/06/24 03:40 AST 11 U/L (13-39) L 07/06/24 03:40 ALT 9 U/L (7-52) 07/06/24 03:40 Alkaline Phosphatase 66 U/L (34-104) 07/06/24 03:40 Troponin I High Sens 5.4 pg/ml (0-14) 07/06/24 03:40 Total Protein 7.2 gm/dl (6.0-8.3) 07/06/24 03:40 Albumin 4.2 gm/dl (3.4-5.0) 07/06/24 03:40 Globulin 3.0 gm/dl (2.5-4.0) 07/06/24 03:40 Albumin/Globulin Ratio 1.4 (0.9-2) 07/06/24 03:40 Lipase 19 U/L (11-82) 07/06/24 03:40 Urine Color Yellow 07/06/24 03:40 Urine Appearance Clear (Clear) 07/06/24 03:40 Urine pH 7.0 (4.5-7.5) 07/06/24 03:40 Ur Specific [place] 1.003 (1.000-1.030) 07/06/24 03:40 Urine Protein Negative (Negative) 07/06/24 03:40 Urine Glucose (UA) Negative (Negative) 07/06/24 03:40 Urine Ketones Negative (Negative) 07/06/24 03:40 Urine Blood Trace (Negative) H 07/06/24 03:40 Urine Nitrite Negative (Negative) 07/06/24 03:40 Urine Bilirubin Negative (Negative) 07/06/24 03:40 Urine Urobilinogen Negative (Negative) 07/06/24 03:40 Ur Leukocyte Esterase Negative (Negative) 07/06/24 03:40 Urine WBC (Auto) 0-5 /hpf (0-5) 07/06/24 03:40 Urine RBC (Auto) 0-2 /hpf (0-2) 07/06/24 03:40 U Hyaline Cast (Auto) 0-2 /lpf (0-2) 07/06/24 03:40 U Epithel Cells (Auto) 0-2 /hpf (0-2) 07/06/24 03:40 Urine Bacteria (Auto) None Seen (None Seen) 07/06/24 03:40 Code Status & VTE Plan Code Status Full code VTE Prophylaxis Plan VTE Prophylaxis will be ordered: Yes PG Care Time/CCT Total # of Minutes Spent Total Time Spent with Patient: Total time spent is greater than 50% in coordination of care (as documented) at patient's floor/unit and/or counseling patient: Coding Level of Care Code 40143 INT INP/OBS CARE MIN Diagnoses Angina pectoris, unstable I20.0 CAD (coronary artery disease) I25.10 H/O heart artery stent Z95.5 Hypertension I10 Hypertension type: unspecified Gastroesophageal reflux disease, esophagitis presence not specified K21.9 Esophagitis presence: esophagitis presence not specified Anxiety disorder F41.9 (4) Hypertension Hypertension type: unspecified Qualified Code(s): I10 - Essential (primary) hypertension (5) GERD (gastroesophageal reflux disease) Esophagitis presence: esophagitis presence not specified Qualified Code(s): K21.9 - Gastro-esophageal reflux disease without esophagitis
--- NOTE | 2024-07-06 07:57 | Electrocardiogram Report ---
Test Reason : Blood Pressure : */* mmHG Vent. Rate : 81 BPM Atrial Rate : 81 BPM P-R Int : 198 ms QRS Dur : 76 ms QT Int : 374 ms P-R-T Axes : 76 69 94 degrees QTcB Int : 434 ms Normal sinus rhythm Old Anterolateral infarct (cited on or before 06-Jan-2014) Abnormal ECG When compared with ECG of 06-Jun-2022 09:27, No significant change was found Confirmed by Ricardo Uribe ([id number]) on 07/06/2024 7:57:14 AM Referred By: REFERRED SELF Confirmed By: Ricardo Uribe
--- NOTE | 2024-07-06 07:57 | XRay Report ---
XR chest 1V portable CLINICAL HISTORY: Chest pain, nonspecific TECHNIQUE: Single frontal radiograph of the chest was obtained. Comparison: Comparison is made to chest radiograph 06/06/2022 FINDINGS: No lines and tubes are seen. Calcified aortic knob is seen. The lungs are clear. No evidence of pleur al effusion or pneumothorax. IMPRESSION: No acute chest disease. ACT 112: Negative or not required by law. Electronically signed by: Sabino Agudelo M.D. 07/06/2024 7:55 AM
[2024-07-06] MEDS ORDERED: ALBUTEROL HFA 8 GM INHALER INH PRN (09:23)
[2024-07-06] MEDS ORDERED: ACETAMINOPHEN 325 MG TAB PO PRN (09:23)
[2024-07-06] MEDS ORDERED: METOPROLOL TARTRATE 25 MG TAB PO PRN (09:23)
[2024-07-06] MEDS ORDERED: NON-FORMULARY MEDICATION (Coq10 (Ubiquinol) 100 mg Capsule) PO SCH (09:23)
[2024-07-06] MEDS: ASPIRIN 81 MG CHEW PO SCH (10:20)
[2024-07-06] MEDS: ISOSORBIDE MONO EXTENDED REL 30 MG TABCR PO SCH (10:21)
[2024-07-06] MEDS: FLUTICASONE FUROATE 200MCG 14 PUFFS/INHALER INH SCH (10:22)
[2024-07-06] MEDS: ESCITALOPRAM OXALATE 10 MG TAB PO SCH (10:48)
[2024-07-06] MEDS: NSS + 20MEQ KCL 20 MEQ/1,000 ML BAG IV SCH (10:48)
[2024-07-06] MEDS: CHOLECALCIFEROL 125 MCG (5,000 UNITS) TAB PO SCH (10:49)
[2024-07-06] MEDS: FAMOTIDINE 40 MG TABLET PO SCH (10:50)
[2024-07-06] MEDS: lisinopril 2.5 MG TAB PO SCH (10:53)
[2024-07-06] MEDS: PANTOprazole 40 MG TAB PO SCH (10:54)
[2024-07-06] MEDS: CLOPIDOGREL BISULFATE 75 MG TAB PO SCH (11:12)
--- NOTE | 2024-07-06 13:37 | Cardiology Consultation ---
Date of Consultation July 06, 2024 Assessment & Plan (1) Angina pectoris, unstable: (2) CAD (coronary artery disease): (3) History of placement of stent in LAD coronary artery: (4) Presence of stent in LAD coronary artery: (5) Ischemic cardiomyopathy: Plan 63-year-old woman with history of ischemic cardiomyopathy status post LAD stenting 2006 with in-stent thrombosis 2018 who presents now with 2 days of chest discomfort with mixed typical/atypical elements, unremarkable ECG and troponin. Given past history, including possible history of sudden cardiac (details not readily apparent, possibly 2006) and ischemic cardiomyopathy, prudent to proceed to repeat cardiac catheterization to definitively evaluate coronary anatomy. After discussion of risk/benefits, patient and family were in agreement. She will proceed to the cardiac catheterization lab where Dr. Vegas will perform the procedure. Despite her previously reduced ejection fraction there is no history of or current evidence of heart failure. She does have a history of noncompliance, but states that she has been taking her statin routinely. However, she appears to be taking her isosorbide on a PRN basis, a full review of her medications and compliance would be important prior to her discharge. She is followed routinely by Dr. Crews in the outpatient setting. History of Present Illness Reason for Consultation: unstable angina Requesting Physician: Robin Ortega Attending Physician: Robin Ortega History of Present Illness 63-year-old woman with history of ischemic cardiomyopathy (EF 40 to 45% 2018), CAD (SCD, pLAD stent 2006, patent stent 2012, patent stent 2015, restenosis with repeat pLAD stent 2018 for in-stent thrombosis, no significant RCA or circumflex disease), dyslipidemia, and hypertension, who was admitted early today with symptoms suggestive of crescendo angina. She had done well until the past couple of days, when she noted intermittent moderate to severe chest discomfort left anterior chest occurring at rest and lasting only seconds, however she noted that it seemed to recur and increase when she walked up an incline. She noted that it was unlike one of her anginal episodes prompting previous stent but somewhat similar to her chest symptoms prior to the other of her past 2 stentings (unclear which one). Upon awakening this morning, she noted significant left-sided chest pain radiating to her left arm and was mildly hypertensive, she presented to the ER where ECG suggested an old anterolateral infarct but showed no acute ST deviation, troponin was normal x 2. He denies any dyspnea, palpitations, diaphoresis, presyncope, or syncope. She was chest pain-free and had no somatic complaints at the time of my evaluation this morning. Allergies Allergy/AdvReac Type Severity Reaction Status Date / Time sertraline Allergy Intermediate Nausea Verified 07/06/24 08:38 Home Medications Medication Instructions Recorded Confirmed Type aspirin 81 mg chewable tablet 81 mg PO QAM 08/14/18 07/06/24 History cholecalciferol (vitamin D3) 125 5,000 unit PO QAM 03/19/19 07/06/24 History mcg (5,000 unit) tablet (Vitamin D3) fluticasone propionate 110 2 puffs inhalation BID 08/27/19 07/06/24 History mcg/actuation HFA aerosol inhaler (Flovent HFA) albuterol sulfate 90 mcg/actuation 1 puff inhalation Q4H PRN 06/04/22 07/06/24 Rx aerosol inhaler shortness of breath or wheezing #8.5 grams dexlansoprazole 30 mg 30 mg PO DAILY #90 caps 08/04/23 07/06/24 Rx capsule,biphase delayed release famotidine 40 mg tablet 40 mg PO DAILY #90 tabs 08/04/23 07/06/24 Rx escitalopram oxalate 5 mg tablet 5 mg PO QAM #90 tabs 11/18/23 07/06/24 Rx atorvastatin 80 mg tablet 80 mg PO HS #90 tabs 02/29/24 07/06/24 Rx clopidogrel 75 mg tablet 75 mg PO QAM #90 tabs 02/29/24 07/06/24 Rx isosorbide mononitrate 30 mg 30 mg PO DAILY #90 tabs 02/29/24 07/06/24 Rx tablet,extended release 24 hr lisinopril 2.5 mg tablet 2.5 mg PO QAM #90 tabs 02/29/24 07/06/24 Rx metoprolol tartrate 25 mg tablet 25 mg PO Q6H PRN hypertension #90 02/29/24 07/06/24 Rx tabs nitroglycerin 0.4 mg sublingual 0.4 mg sublingual Q5M PRN chest 02/29/24 07/06/24 Rx tablet pain #25 tabs Patient History Medical History (Updated 07/06/24 @ 13:52 by Ricardo Uribe MD) History of placement of stent in LAD coronary artery (2007) Presence of stent in LAD coronary artery (2018) Chest pain, rule out acute myocardial infarction Endometrial adenocarcinoma 2019. Per GynOnc: Needs Q6mo pelvic exam x3 years then annual. History of postmenopausal bleeding Systolic heart failure Lab test negative for COVID-19 virus Chest pain Chest pain syndrome Atypical chest pain Presence of stent in artery Past myocardial infarction Left leg numbness Left hip pain Dystonia Acid reflux disease GERD (gastroesophageal reflux disease) Angina at rest CAD (coronary artery disease) HLD (hyperlipidemia) HTN (hypertension) Chest pain Surgical History H/O bilateral salpingo-oophorectomy H/O: hysterectomy S/P arterial stent S/P inguinal hernia repair S/P cardiac catheterization Family History Mother Myocardial infarction Father Myocardial infarction Other Hypertension Denies family history of Ovarian cancer Prostate cancer Crohn's disease Breast cancer Lung cancer Colorectal cancer Ulcerative colitis Stroke Social History Smoking Status: Never smoker Second Hand Exposure: No; Do You Dip or Chew Tobacco: No; Hx Alcohol Use: No Hx Substance Use: No Preferred Language: Mongolian Communication Ability: Effective Visual Impairment: No Limitations Hearing Ability: Normal Human Resources Talent Manager Required: No Beliefs That Will Affect Care: None marital status: Current Living Situation: Spouse Feels Safe at Home: Yes Seatbelt Use: always Assistive Devices: None Physical Exam Physical Exam: Adult white female in no distress. Afebrile. BP 164/88 mmHg. Pulse 65 bpm and regular. Respirations 15 unlabored. Skin: no ecchymoses or generalized lesions. HEENT: unremarkable. Neck: JVP at the clavicle at 90 degrees, no carotid bruits. Lungs: clear. Cardiac: regular rhythm, normal S1-2, no murmur. Abdomen: benign. Extremities: no edema, pulses intact. Neurologic: normal affect and conversation, nonfocal. Results & Data Laboratory Results Normal CBC. Normal electrolytes, BUN 14, creatinine 0.85. Glucose 103. Labs from last year showed cholesterol 236, LDL 153, HDL 51, triglycerides 159 (obtained at a time when she was less compliant with medications). Diagnostic Findings ECG as noted in HPI. Chest x-ray unremarkable. PG Care Time/CCT Total # of Minutes Spent Total Time Spent with Patient: Total time spent is greater than 50% in coordination of care (as documented) at patient's floor/unit and/or counseling patient: Coding Level of Care Code 47673 IN/OBS CONSULT LVL 4,60M Diagnoses Angina pectoris, unstable I20.0 CAD (coronary artery disease) I25.10 History of placement of stent in LAD coronary artery Z95.5 Presence of stent in LAD coronary artery Z95.5 Ischemic cardiomyopathy I25.5
--- NOTE | 2024-07-06 14:18 | Pre Anesthesia Assessment ---
Date of Service July 06, 2024 Pre Sedation Assessment Vital Signs Temp Pulse Pulse Resp BP BP Pulse Ox 07/06/24 14:07 74 18 145/74 H 98 07/06/24 11:36 36.5 C 65 15 164/88 H 97 07/06/24 09:16 36.4 C L 69 17 140/74 96 07/06/24 08:55 07/06/24 08:09 60 17 97 07/06/24 08:00 133/67 07/06/24 07:54 64 20 97 07/06/24 07:36 60 18 97 07/06/24 07:30 127/58 L 07/06/24 07:27 65 17 97 07/06/24 07:06 64 14 97 07/06/24 07:00 134/69 07/06/24 06:00 63 19 126/73 97 07/06/24 05:00 63 18 137/81 98 07/06/24 04:30 66 19 139/71 99 07/06/24 04:00 67 19 137/72 98 07/06/24 03:58 97 07/06/24 03:43 72 20 97 07/06/24 03:30 75 16 168/90 H 98 07/06/24 03:04 36.7 C 85 18 163/96 H 100 O2 Del Method O2 Flow Rate 07/06/24 14:07 Room Air 07/06/24 11:36 Room Air 07/06/24 09:16 Room Air 07/06/24 08:55 Room Air 07/06/24 08:09 07/06/24 08:00 07/06/24 07:54 07/06/24 07:36 07/06/24 07:30 07/06/24 07:27 07/06/24 07:06 Room Air 07/06/24 07:00 07/06/24 06:00 07/06/24 05:00 07/06/24 04:30 07/06/24 04:00 07/06/24 03:58 Room Air 0 07/06/24 03:43 Room Air 0 07/06/24 03:30 07/06/24 03:04 Room Air Cardiovascular RRR, no murmur, no edema Respiratory normal respiratory effort, lungs clear to auscultation Pre-Sedation Airway Assessment Smoking Status: Never smoker Short, Thick Neck: No Thyromental Distance: > or= 3.5 Finger Breadths Oral Cavity: + WNL Mallampati Class: III ASA: ASA3 NPO Status Date of Last Intake of Fluids: 07/06/24 Time of Last Intake of Fluids: 10:00 Date of Last Intake of Solid Food: 07/05/24 Time of Last Intake of Solid Foods: 18:00 Notes The planned sedation has been discussed with the patient. Informed Consent was obtained. I have identified the patient, determined the appropriateness of sedation and have assessed the patient immediately prior to the procedure. All medicine(s) and interventions are by my order.
[2024-07-06] MEDS: niCARdipine HCL INJ 2.5 MG/ML 10 ML AMP ONE (14:46)
[2024-07-06] MEDS: NITROGLYCERIN/D5W 100MCG/ML 20ML SYR ONE (14:47)
[2024-07-06] MEDS: fentaNYL citrate PF 100 MCG/2 ML VIAL ONE (14:51)
[2024-07-06] MEDS: HEPARIN (PORCINE) 1000 UNIT/ML 10 ML (CATH LAB USE ONLY) ONE (14:51)
[2024-07-06] MEDS: OPTIRAY 350 ONE (14:51)
[2024-07-06] MEDS: MIDAZOLAM HCL 1 MG/ML 2ML VIAL ONE (14:51)
--- NOTE | 2024-07-06 14:55 | XCELERA ---
[id number]
--- NOTE | 2024-07-06 15:23 | Post Anesthesia Assessment ---
Date of Service July 06, 2024 Post Sedation Assessment Vital Signs Temp Pulse Pulse Resp BP BP Pulse Ox 07/06/24 15:02 67 16 115/58 L 93 07/06/24 14:07 74 18 145/74 H 98 07/06/24 11:36 36.5 C 65 15 164/88 H 97 07/06/24 09:16 36.4 C L 69 17 140/74 96 07/06/24 08:55 07/06/24 08:09 60 17 97 07/06/24 08:00 133/67 07/06/24 07:54 64 20 97 07/06/24 07:36 60 18 97 07/06/24 07:30 127/58 L 07/06/24 07:27 65 17 97 07/06/24 07:06 64 14 97 07/06/24 07:00 134/69 07/06/24 06:00 63 19 126/73 97 07/06/24 05:00 63 18 137/81 98 07/06/24 04:30 66 19 139/71 99 07/06/24 04:00 67 19 137/72 98 07/06/24 03:58 97 07/06/24 03:43 72 20 97 07/06/24 03:30 75 16 168/90 H 98 07/06/24 03:04 36.7 C 85 18 163/96 H 100 O2 Del Method O2 Flow Rate 07/06/24 15:02 Room Air 07/06/24 14:07 Room Air 07/06/24 11:36 Room Air 07/06/24 09:16 Room Air 07/06/24 08:55 Room Air 07/06/24 08:09 07/06/24 08:00 07/06/24 07:54 07/06/24 07:36 07/06/24 07:30 07/06/24 07:27 07/06/24 07:06 Room Air 07/06/24 07:00 07/06/24 06:00 07/06/24 05:00 07/06/24 04:30 07/06/24 04:00 07/06/24 03:58 Room Air 0 07/06/24 03:43 Room Air 0 07/06/24 03:30 07/06/24 03:04 Room Air Recovery Score Activity: Moves 4 extremities Respiration: Deep Breath/Cough Circulation: +/-20% PreAnes Value Consciousness: Fully Awake Oxygen Saturation: > 92% On Room Air Post Anesthesia Score: 10 Discharge Sedation Level of Care: Fast Track Phase II Post Sedation Plan On clinical assessment, the patient appears to have tolerated the sedation wi thout complications. Patient is recovering as anticipated. Patient will continue to be monitored by nursing and may be discharged when sedation discharge criteria are met per below protocol. Upon Completions of procedure up to 15 minutes continue every 5 minute vital signs and the P.A.R. score; then discharge to a Phase I or Fast Track to Phase II per the following guidelines: * Discharge Patient to appropriate Phase II area if PAR is 8 or greater or return to pre- procedure baseline. The post - procedure orders will be as directed. * If PAR score is less than 8 or not return to pre-procedure baseline then patient will follow Phase I monitoring till PAR is reached for Phase II. The Phase I may be done in procedure room or may call to secure a Phase I area. * If naloxone or flumazenil are used for reversal, hold in Phase I for continued monitoring from when last reversal dose was given for a minimum of 60 minutes or longer pending the nurse and/or physician discretion of patient condition before discharge to Phase II. Please call the Sedation Physician to re-evaluate and complete post-note for discharge to Phase II area. Do NOT discharge from procedure sedation or Phase 1 until post- sedation evaluation note is complete by procedure /sedation MD Sedation Discharge Instructions to be given to the patient at discharge to home. [facility] Procedure Codes (Charges) Indication for Procedure Indication for procedure: unstable angina hx of stent Sedation/Anesthesia Procedure 1: Sedation/Anesthesia: 09273 Mod Sedation by the same physician;Init15 Min Child Age 5 & Up (start 1437, end 1451) Total Sedation Time (minutes): 14
--- NOTE | 2024-07-06 15:39 | Cardiac Catheterization ---
[facility] Data: [employer] Cardiac Status Clinical evaluation leading to the procedure CAD Presenation: Unstable angina Anginal Classification: CCS IV Heart Failure: No Cardiogenic Shock within 24 Hours: No Cardiac Arrest within 24 Hours: No Imaging Studies Past 6 Months: No Coronary Anatomy Dominant: Right Left Main (% Stenosis): Normal LAD (% Stenosis): Proximal (20% in-stent restenosis) D1 (% Stenosis): Ostial (50%) D2 (% Stenosis): Normal Circumflex (% Stenosis): Mid (Less than 20%) and Distal (90%) OM1 (% Stenosis): Normal OM2 (% Stenosis): Ostial (50 to 60%) L PL1 (% Stenosis): Normal RCA (% Stenosis): Proximal (50%) R PDA (% Stenosis): Normal Diagnostic Physicians Name: Jordi Vegas MD, PhD Closure Device Percutaneous Entry Location: Radial Closure Device: Radial Band Recommendations: Medical Therapy and/or Counseling Cardiac Cath Procedure Full Procedure Date July 06, 2024 Pre-Procedure Diagnosis Pre-Procedure Diagnosis: Acute Coronary Syndrome (Unstable angina) AUC Score AUC Score: 07 Post-Procedure Diagnosis Post-Procedure Diagnosis: Moderate CAD Procedure(s) Performed Procedure(s) Performed: Coronary Angiography, Left Heart Cath, Drug Eluting Stent and IVUS Cigar Head Holer Jordi Vegas MD, PhD Estimated Blood Loss Estimated Blood Loss: 5 cc Medication(s) Medication(s): Fentanyl, Heparin, Lidocaine 1%, Nicardipine, Nitroglycerin and Versed Summary of Findings Brief description: Patient was brought to the cardiac catheterization suite where she was shaved and prepped in a sterile fashion. Sedated using IV Versed and fentanyl. Soft tissues of the right wrist were anesthetized using 2 mL of 1% Xylocaine. Right radial artery was accessed with a modified Seldinger technique and a 6 Nigerian radial artery glide sheath was placed. Patient was provided anticoagulation with IV heparin and antispasmodics including nicardipine and nitroglycerin. All catheters were advanced and exchanged over a 0.035 J-tip wire. Left coronary angiography in orthogonal views with a 5 Nigerian JL 3.5 diagnostic catheter. Right coronary angiography in orthogonal views with a 5 Nigerian JR4 diagnostic catheter. Diagnostic catheters were removed. Radial artery sheath was removed. Hemostasis was obtained using a TR band. Patient remained hemodynamically stable and asymptomatic. She was returned to the recovery area. This ended the case. Coronary angiography findings: [id number]-[id number] vessel bifurcating into LAD and circumflex. No angio graphically significant disease. [id number] and transapical. Proximal stent is with less than 20% in- stent restenosis. First diagonal has ostial 50% stenosis in the second diagonal is small without disease. There is no more than mild luminal irregularities in the LAD and its branches. JRq-[id number]-[id number] and nondominant. Proximal vessel in the AV groove has no significant disease and gives a large branching OM1. The mid AV groove vessel has disease of less than 20% and then gives a small to medium caliber OM 2. The OM 2 has ostial 50 to 60% stenosis this same lesion also extends into the distal AV groove but there it appears to be closer to 90% stenosed. The distal AV groove vessel is relatively small and then terminates in a small posterolateral branch. RCA-medium to large caliber and dominant. Proximally there is 40 to 50% narrowing. The remainder of the RCA and its branches have mild luminal irregularities. Summary: 1. patent prior stents with less than 20% in-stent restenosis. 2. Mild to moderate disease in the RCA, D1, mid circumflex, and OM 2. Also with severe distal circumflex AV groove vessel disease. However, this vessel is too small for PCI. 3. Patient will remain on guideline directed medical therapy for secondary prevention. 4. We will increase the antianginal regimen. Begin with isosorbide mononitrate 60 mg daily. Hemodynamics Rest Ao:: 106/60 mmHg Final Ao: 112/63 mmHg LV: Not performed Recommendations Recommendations: Medical Therapy and/or Counseling Radiation Exposure (mGy) 406 mGy, fluoroscopy time 2.5 minutes Contrast (mls) 55 cc Anesthesia 2 mg Versed, 50 mcg fentanyl IV. Start time 1437, end time 1451 Procedural Complication(s) None Disposition [employer] Holding/Recovery I attest to the content of the Intraoperative Record and any orders documented therein. Any exceptions are noted below. [facility] [place] Procedure Codes Cardiac Catheterization Procedure 1: Cardiovascular Cath Procedures: 92125 Coronaries Moderate Sedation Procedure 1: Sedation/Anesthesia: 85791 Mod Sedation by the same physician;Init15 Min Child Age 5 & Up (Initial 15 min, start time 1437, end time 1451)
--- NOTE | 2024-07-06 16:40 | Electrocardiogram Report ---
Test Reason : Blood Pressure : */* mmHG Vent. 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
[2024-07-06] MEDS: ATORVASTATIN 40 MG TAB PO SCH (19:49)
[2024-07-07] MEDS: ONDANSETRON INJ 2 MG/ML 2 ML VIAL IV PRN (01:55)
[2024-07-07 01:59] VITALS: O2SAT 97
[2024-07-07 02:52] LABS: Basophils # (auto) 0.08 K/uL (0.00-0.20); Basophils % (auto) 1.1 %; Eosinophils # (auto) 0.13 K/uL (0.00-0.50); Eosinophils % (auto) 1.8 %; Hematocrit (blood only) 37.1 % (37.0-47.0); Hemoglobin 12.4 g/dl (12.0-16.0); Immature Granulocytes # (auto) 0.02 K/uL (0.01-0.20); Immature Granulocytes % (auto) 0.3 %; Lymphocytes # (auto) 3.36 K/uL (1.20-3.40); Lymphocytes % (auto) 45.8 %; Mean Corpuscular Hemoglobin 29.1 pg (25.0-34.0); Mean Corpuscular Hgb Conc 33.4 g/dL (32.0-36.0); Mean Corpuscular Volume 87.1 fL (80.0-100.0); Mean Platelet Volume 9.8 fL (9.4-12.4); Monocytes # (auto) 0.53 K/uL (0.11-0.59); Monocytes % (auto) 7.2 %; Neutrophils # (auto) 3.21 K/uL (1.40-6.50); Neutrophils % (auto) 43.8 %; Platelet Count 235 K/uL (130-400); RDW Coefficient of Variation 13.4 % (11.5-14.5); RDW Standard Deviation 42.4 fL (36.4-46.3); Red Blood Count 4.26 M/uL (4.20-5.40); White Blood Count 7.33 K/ul (4.8-10.8)
[2024-07-07 03:08] LABS: Albumin Globulin Ratio 1.4 (0.9-2); Albumin Level 3.9 gm/dl (3.4-5.0); BUN Creatinine Ratio 21.9 (10-20); Bilirubin,Total 0.5 mg/dl (0.2-1.0); Calcium 8.9 mg/dl (8.6-10.3); Creatinine Clr Calc Pharmacy 48.2 ml/min; Globulin 2.7 gm/dl (2.5-4.0); Magnesium 1.8 mg/dl (1.7-2.4); Potassium 3.7 mmol/L (3.5-5.1); Total Protein 6.6 gm/dl (6.0-8.3)
[2024-07-07] MEDS: NITROGLYCERIN SL 0.4 MG/TAB TAB SL PRN (06:12)
[2024-07-07 08:16] VITALS: RESP 17; TEMP 97.5
[2024-07-07] MEDS: ISOSORBIDE MONO EXTENDED REL 60 MG TABCR PO SCH (08:31)
[2024-07-07 12:23] VITALS: BP 115/58; PULSE 84
--- NOTE | 2024-07-07 13:19 | Cardiology Progress Note ---
Date of Service July 07, 2024 Assessment & Plan (1) Chest pain: (2) CAD (coronary artery disease): (3) Ischemic cardiomyopathy: (4) Dyslipidemia: (5) H/O heart artery stent: (6) Hypertension: (7) Mitral regurgitation: (8) Tricuspid regurgitation: Plan ASSESSMENT/PLAN: 1. Chest pain: Chest pain may not be cardiac in nature given that she has had longstanding episodes with normal high-sensitivity troponin. She had severe CAD involving small distal circumflex that is not amenable to intervention due to small size however not clear that this would cause rest pain and she had rest pain in bed. Agree with nitrate therapy to see if it offers any relief. She is now on isosorbide mononitrate 60 mg, but she did not get her first dose until today. Recommend metoprolol on a scheduled basis. 2. CAD s/p prior LAD PCI: No severe CAD amenable to PCI during this ho spitalization. Distal circumflex with severe CAD but too small for intervention per interventional cardiology. Continue antiplatelet therapy. High-sensitivity troponin has been negative despite at least 30 minutes of chest pain this morning. Was planning to repeat high-sensitivity troponin but patient was discharged shortly after seeing her this morning, before this note. Recommend beta-rosa scheduled. High intensity statin therapy. 3. Ischemic cardiomyopathy: Mildly reduced LV systolic function. Stable compared to 2021 per echo report. She appears euvolemic. Recommend metoprolol succinate. Medication changes can be made if deemed appropriate by her primary paper cone grader in the outpatient setting. Continue HARDEEP inhibitor. 4. Mitral and tricuspid regurgitation: Nonsevere. Monitor in the outpatient setting. 5. Hypertension: Blood pressure acceptable this morning. Plan as above. Continue HARDEEP inhibitor. 6. Dyslipidemia: According to outpatient records, her most recent lipid profile which demonstrated significantly elevated LDL was done in the setting of her not taking her prescribed atorvastatin. She apparently has repeat labs pending in the outpatient setting. Goal LDL < 70. If not at goal, would recommend further adjustment to her lipid management. 7. Disposition: Follow-up with Dr. Crews within 1 week. Patient has already been discharged. Admission and Anticipated Discharge Date Admission Date: July 06, 2024 Subjective Patient was seen earlier this morning with her at the bedside. She reports having an episode of chest discomfort this morning while laying in bed that lasted for 30 minutes. The chest pain was between 5:30 AM and 6 AM. She took nitroglycerin x 3 and eventually the pain subsided. She recalls that in the middle of the night she had an episode of nausea and diaphoresis but no chest pain at that time. She denies shortness of breath, syncope, near syncope, palpitations, edema, or bleeding. She reports no issues with her right radial cath site. She was chest pain-free at the time of our visit this morning. She voiced that she would like to be discharged today. Physical Exam Physical Exam: Gen.: No acute distress. Alert. HEENT: Anicteric sclera. Neck: No JVD. Cardiac: Regular. Normal S1-S2. No murmurs, rubs, or gallops. Pulmonary: Clear to auscultation bilaterally without wheezes, rales, or rhonchi. Abdomen: Soft, nontender, nondistended, with normoactive bowel sounds. No bruits noted. Extremities: 2+ radial pulses bilaterally. Right radial cath site was clean, dry, and intact without erythema or discharge. 2+ posterior tibialis pulses bilaterally. No edema or cyanosis. Chest: Nontender to palpation. Results & Data Vital Signs (Past 12 Hours) Vital Signs Temp Pulse Pulse Resp BP BP Pulse Ox 07/07/24 12:08 36.4 C L 84 17 124/73 115/58 L 97 07/07/24 10:27 07/07/24 08:08 36.4 C L 84 17 124/73 97 07/07/24 07:00 77 07/07/24 06:31 97/54 L 07/07/24 06:28 106/66 07/07/24 06:20 118/64 07/07/24 06:11 139/69 07/07/24 01:57 36.8 C 45 L 21 106/50 L 97 O2 Del Method 07/07/24 12:08 07/07/24 10:27 Room Air 07/07/24 08:08 Room Air 07/07/24 07:00 07/07/24 06:31 07/07/24 06:28 07/07/24 06:20 07/07/24 06:11 07/07/24 01:57 Room Air Laboratory Results Laboratory Results - last 24 hr 07/06/24 07/06/24 07/07/24 15:20 20:56 02:36 WBC 7.33 RBC 4.26 Hgb 12.4 Hct 37.1 MCV 87.1 MCH 29.1 MCHC 33.4 RDW Std Deviation 42.4 RDW Coeff of Chetna 13.4 Plt Count 235 MPV 9.8 Immature Gran % (Auto) 0.3 Neut % (Auto) 43.8 Lymph % (Auto) 45.8 Bailey % (Auto) 7.2 Eos % (Auto) 1.8 Baso % (Auto) 1.1 Neut # (Auto) 3.21 Lymph # (Auto) 3.36 Bailey # (Auto) 0.53 Eos # (Auto) 0.13 Baso # (Auto) 0.08 Immature Gran # (Auto) 0.02 Sodium 138 Potassium 3.7 Chloride 106 Carbon Dioxide 25 Anion Gap 7 BUN 21 Creatinine 0.96 Est Cr Clr Drug Dosing 48.2 eGFR 66.48 BUN/Creatinine Ratio 21.9 H Glucose 111 H Calcium 8.9 Magnesium 1.8 Total Bilirubin 0.5 AST 13 ALT 8 Alkaline Phosphatase 61 Troponin I High Sens 6.2 6.8 5.6 Total Protein 6.6 Albumin 3.9 Globulin 2.7 Albumin/Globulin Ratio 1.4 07/07/24 06:56 WBC RBC Hgb Hct MCV MCH MCHC RDW Std Deviation RDW Coeff of Chetna Plt Count MPV Immature Gran % (Auto) Neut % (Auto) Lymph % (Auto) Bailey % (Auto) Eos % (Auto) Baso % (Auto) Neut # (Auto) Lymph # (Auto) Bailey # (Auto) Eos # (Auto) Baso # (Auto) Immature Gran # (Auto) Sodium Potassium Chloride Carbon Dioxide Anion Gap BUN Creatinine Est Cr Clr Drug Dosing eGFR BUN/Creatinine Ratio Glucose Calcium Magnesium Total Bilirubin AST ALT Alkaline Phosphatase Troponin I High Sens 5.9 Total Protein Albumin Globulin Albumin/Globulin Ratio Diagnostic Findings Telemetry personally reviewed: Sinus rhythm. No arrhythmia. ECG personally reviewed from 07/07/2024 at 6:16 AM: Sinus rhythm 91 bpm. Poor R wave progression, anterior infarct. ECG personally reviewed 07/07/2024 at 5:18 AM: Sinus rhythm 75 bpm. Anterior infarct. Echo report reviewed from 07/06/2024: EF 45 to 50%. Prior LAD infarct. Moderate MR. Moderate TR. LV systolic function and wall motion abnormalities reported as stable compared to 06/07/2022. Cardiac cath report 07/06/2024: Coronary angiography findings: SQZ-ttyqi-[id number] vessel bifurcating into LAD and circumflex. No angiographically significant disease. EUJ-krkxd-[id number] and transapical. Proximal stent is with less than 20% in- stent restenosis. First diagonal has ostial 50% stenosis in the second diagonal is small without disease. There is no more than mild luminal irregularities in the LAD and its branches. [id number] and nondominant. Proximal vessel in the AV groove has no significant disease and gives a large branching OM1. The mid AV groove vessel has disease of less than 20% and then gives a small to medium caliber OM 2. The OM 2 has ostial 50 to 60% stenosis this same lesion also extends into the distal AV groove but there it appears to be closer to 90% stenosed. The distal AV groove vessel is relatively small and then terminates in a small posterolateral branch. RCA-medium to large caliber and dominant. Proximally there is 40 to 50% narrowing. The remainder of the RCA and its branches have mild luminal irregularities. Summary: 1. patent prior stents with less than 20% in-stent restenosis. 2. Mild to moderate disease in the RCA, D1, mid circumflex, and OM 2. Also with severe distal circumflex AV groove vessel disease. However, this vessel is too small for PCI. 3. Patient will remain on guideline directed medical therapy for secondary prevention. 4. We will increase the antianginal regimen. Begin with isosorbide mononitrate 60 mg daily. Labs reviewed from 07/07/2024 notable for stable renal function, normal potassium, normal high-sensitivity troponin, normal blood counts, normal transaminase levels. Labs from 07/27/2023 demonstrated elevated LDL. Medications Administered Current Inpatient Medications Acetaminophen (Acetaminophen 325 Mg Tab) 650 mg PO Q4H PRN PRN Reason: Pain or Fever Stop: 08/05/24 09:22 Albuterol (Albuterol Hfa 8 Gm Inhaler) 1 puffs INH Q4H PRN PRN Reason: shortness of breath or wheezing Stop: 08/05/24 09:22 Aspirin (Aspirin 81 Mg Chew) [facility] [place] Stop: 08/05/24 09:22 Last Admin: 07/07/24 08:30 Dose: 81 mg Atorvastatin Calcium (Atorvastatin 40 Mg Tab) 80 mg PO HS [facility] Stop: 08/05/24 20:59 Last Admin: 07/06/24 19:49 Dose: 80 mg Clopidogrel Bisulfate (Clopidogrel Bisulfate 75 Mg Tab) 75 mg PO QAM [facility] Stop: 08/05/24 09:22 Last Admin: 07/07/24 08:31 Dose: 75 mg Escitalopram Oxalate (Escitalopram Oxalate 10 Mg Tab) 5 mg PO QAM [facility] Stop: 08/05/24 08:59 Last Admin: 07/07/24 08:42 Dose: Not Given Famotidine (Famotidine 40 Mg Tablet) 40 mg PO DAILY [facility] Stop: 08/05/24 09:22 Last Admin: 07/07/24 08:43 Dose: Not Given Fluticasone Furoate (Fluticasone Furoate 200mcg 14 Puffs/Inhaler) 1 puffs INH DAILY [facility] Stop: 08/05/24 09:59 Last Admin: 07/07/24 08:43 Dose: Not Given Isosorbide Mononitrate (Isosorbide Bailey Extended Rel 60 Mg Tabcr) 60 mg PO DAILY [facility] Stop: 08/06/24 08:59 Last Admin: 07/07/24 08:31 Dose: 60 mg Lisinopril (Lisinopril 2.5 Mg Tab) 2.5 [facility] [place] Stop: 08/05/24 09:22 Last Admin: 07/07/24 08:31 Dose: 2.5 mg Metoprolol Tartrate (Metoprolol Tartrate 25 Mg Tab) 25 mg PO Q6H PRN PRN Reason: hypertension Stop: 08/05/24 09:22 Nitroglycerin (Nitroglycerin Sl 0.4 Mg/Tab Tab) 0.4 mg SL Q5M PRN PRN Reason: chest pain Stop: 08/05/24 09:22 Last Admin: 07/07/24 06:29 Dose: 0.4 mg Ondansetron HCl (Ondansetron Inj 2 Mg/Ml 2 Ml Vial) 4 mg IV Q6H PRN PRN Reason: Nausea Stop: 08/05/24 09:22 Last Admin: 07/07/24 01:55 Dose: 4 mg Pantoprazole Sodium (Pantoprazole 40 Mg Tab) 40 mg PO DAILY [facility]; Protocol Stop: 08/05/24 09:59 Last Admin: 07/07/24 08:30 Dose: 40 mg Vitamin D (Cholecalciferol 125 Mcg (5,000 Units) Tab) 125 mcg PO QAM [facility] Stop: 08/05/24 09:22 Last Admin: 07/07/24 08:30 Dose: 125 mcg PG Care Time/CCT Total # of Minutes Spent Total Time Spent with Patient: Total time spent is greater than 50% in coordination of care (as documented) at patient's floor/unit and/or counseling patient: Coding Level of Care Code 80728 SUB INP/OBS CARE 3/50MIN Diagnoses Chest pain R07.9 Chest pain type: unspecified CAD (coronary artery disease) I25.10 Ischemic cardiomyopathy I25.5 Dyslipidemia E78.5 H/O heart artery stent Z95.5 Hypertension I10 Hypertension type: unspecified Mitral regurgitation I34.0 Tricuspid regurgitation I07.1 (1) Chest pain Chest pain type: unspecified Qualified Code(s): R07.9 - Chest pain, unspecified (6) Hypertension Hypertension type: unspecified Qualified Code(s): I10 - Essential (primary) hypertension
--- NOTE | 2024-07-08 11:38 | Discharge Summary ---
Discharge Summary Date of Service July 07, 2024 Principal Dx & Hospital Course #1 = Principal Diagnosis (1) Angina pectoris, unstable: (2) CAD (coronary artery disease): (3) H/O heart artery stent: (4) Hypertension: (5) GERD (gastroesophageal reflux disease): (6) Anxiety disorder: Plan Unstable angina/CAD/history of AR/history of coronary artery stent- Initial troponin normal at 5.4 Most recent echocardiogram from 06/07/2022 shows ejection fraction 40-45% and abnormal motion consistent with mid LAD AR EKG unchanged compared to previous, showing normal sinus rhythm with old anterolateral infarct Appreciate input from Cardiology: She had severe CAD involving small distal circumflex that is not amenable to intervention due to small size however not clear that this would cause rest pain and she had rest pain in bed. Agree with nitrate therapy to see if it offers any relief. Recommend metoprolol on a scheduled basis. 2. CAD s/p prior LAD PCI: No severe CAD amenable to PCI during this hospitalization. Distal circumflex with severe CAD but too small for intervention per interventional cardiology. Continue antiplatelet therapy. Recommend beta-rosa scheduled. High intensity statin therapy. 3. Ischemic cardiomyopathy: Mildly reduced LV systolic function. Stable compared to 2021 per echo report. She appears euvolemic. Recommend metoprolol succinate. Medication changes can be made if deemed appropriate by her primary pantomimist in the outpatient setting. Continue HARDEEP inhibitor. Followup with Dr. Crews in 1 week. GERD- Continue deslansoprazole/pantoprazole Anxiety- Continue escitalopram Admission HPI Per Admitting Provider The patient is a 63-year-old female with a past medical history artery disease history of LAD territory AR about 5 years ago, hypertension, anxiety disorder, history of malignant neoplasm of the endometrium, and D deficiency, dyslipidemia, GERD and history of coronary artery stent. She presents to the emergency department with symptoms of unstable angina as noted above. At the time my examination, the her chest pain has resolved completely. She does report having some intermittent nausea prior to arrival to the ED as well. She reports she has had decreased oral intake over the past few days, as she feels that her body has not felt right Discharge Plan Discharge Items Patient Disposition: Home - Self-Care Reason For Visit: UNSTABLE ANGINA Discharge Diagnosis: unstable angina Condition on Discharge: Good Activity: Resume your previous activity Non-emergency contact: Primary Care Provider Call non-emergency contact if: you have any medication questions Follow-up/Referrals: Brisa Rodríguez MD [Primary Care Provider] - 07/16/24 3:00 pm (Hospital follow up scheduled July 16 at 3:00) Diet: Heart Healthy Addtl Attending Provider Instructions: Home Care: * Take your medications exactly as directed. Don't skip doses. * Remember that recovery after a heart attack takes time. Plan to rest for at lease 4-8 weeks while you recover. Then return to normal activity when your doctor says it's okay. * Ask your doctor about joining a heart rehabilitation program. * Tell your doctor if you are feeling depressed. Feelings of sadness are common after a heart attack, but it is important that you speak to someone if you are feeling overwhelmed by these feelings. * If you are having chest pain, call 911 for an ambulance. Do NOT drive yourself to the hospital. * Ask your family members to learn CPR. * Learn to take your own blood pressure and pulse. Keep a record of your results. Ask your doctor when you should seek emergency medical attention. He or she will tell you which blood pressure reading is dangerous. Lifestyle Changes: * Maintain a healthy weight. Get help to lose any extra pounds. * Cut back on salt. * Limit canned, dried, packaged, and fast foods. * Don't add salt to your food. * Season foods with herbs instead of salt when you cook. * Break the smoking habit. Enroll in a stop-smoking program to improve your chances of success. * Limit fatty foods. * Ask your doctor about having your lipid levels checked regularly. * Build up your activity according to your doctor's recommendation. * Ask your doctor when it's okay to resume sexual activity. * Tell your doctor about any erectile dysfunction (ED) medication you are taking. Some ED medications are not safe if you take certain heart medications. * Try to manage stress. Follow Up: It is important for you to keep your follow up appointments with your medical provider. Pending Studies at Discharge: No Stand-Alone Forms: [facility], Smoking Cessation Medications and DC Order Prescriptions: Continued albuterol sulfate 90 mcg/actuation HFA aerosol inhaler 1 puff INH Q4H PRN (Reason: shortness of breath or wheezing) Qty: 8.5 5RF escitalopram oxalate 5 mg tablet 5 mg PO QAM Qty: 90 3RF nitroglycerin 0.4 mg tablet, sublingual 0.4 mg SL Q5M PRN (Reason: chest pain) Qty: 25 5RF metoprolol tartrate 25 mg tablet 25 mg PO Q6H PRN (Reason: hypertension) Qty: 90 3RF Rx Instructions: Patient has 100mg tabs, she cuts them into 4 and takes 25mg as she needs. lisinopril 2.5 mg tablet 2.5 mg PO QAM Qty: 90 3RF clopidogrel 75 mg tablet 75 mg PO QAM Qty: 90 3RF atorvastatin 80 mg tablet 80 mg PO HS Qty: 90 3RF dexlansoprazole 30 mg capsule,biphase delayed releas 30 mg PO DAILY Qty: 90 3RF famotidine 40 mg tablet 40 mg PO DAILY Qty: 90 3RF aspirin 81 mg Tablet,Chewable 81 mg PO QAM cholecalciferol (vitamin D3) [Vitamin D3] 5,000 unit Tablet 5,000 unit PO QAM fluticasone propionate [Flovent HFA] 110 mcg/actuation HFA aerosol inhaler 2 puffs INH BID Changed isosorbide mononitrate 60 mg tablet extended release 24 hr 60 mg PO DAILY Qty: 30 0RF Discharge Orders: Discharge Order (Routine); Ordered 07/07/24 Ordered By: Robin Ortega Admission Data Admit Date/Time: 07/06/24 06:38 Attending Provider: Robin Ortega Admit Provider: Jeffrey Ponce Primary Care Provider: Brisa Rodríguez V. Other Providers: Ricardo Uribe; Jeffrey Ponce Other Interventions: Discharge Summary Assessment (RN) Last Done: 07/07/24 12:08 Hospital Stay Data Consultations 07/06/24 05:33 ED Decision to Admit Stat 07/06/24 09:23 Consult Cardiology Routine Procedures Performed Operation Date: 07/06/24 14:00 Actual Procedures p Cineradiography w/Routine Exam - Jordi Vegas MD, PhD s Cath, Coronaries ONLY (no LV) - Jordi Vegas MD, PhD Diagnostic Imagining Performed 07/06/24 13:43 CL Cath Imgs for PACS use only Routine 07/06/24 14:22 CL Cath Imgs for PACS use only Stat Pending Results Patient Have Any Pending Studies at Discharge: No Discharge Instructions Given to Patient (Per Discharging Provider) Home Care: * Take your medications exactly as directed. Don't skip doses. * Remember that recovery after a heart attack takes time. Plan to rest for at lease 4-8 weeks while you recover. Then return to normal activity when your doctor says it's okay. * Ask your doctor about joining a heart rehabilitation program. * Tell your doctor if you are feeling depressed. Feelings of sadness are common after a heart attack, but it is important that you speak to someone if you are feeling overwhelmed by these feelings. * If you are having chest pain, call 911 for an ambulance. Do NOT drive yourself to the hospital. * Ask your family members to learn CPR. * Learn to take your own blood pressure and pulse. Keep a record of your results. Ask your doctor when you should seek emergency medical attention. He or she will tell you which blood pressure reading is dangerous. Lifestyle Changes: * Maintain a healthy weight. Get help to lose any extra pounds. * Cut back on salt. * Limit canned, dried, packaged, and fast foods. * Don't add salt to your food. * Season foods with herbs instead of salt when you cook. * Break the smoking habit. Enroll in a stop-smoking program to improve your chances of success. * Limit fatty foods. * Ask your doctor about having your lipid levels checked regularly. * Build up your activity according to your doctor's recommendation. * Ask your doctor when it's okay to resume sexual activity. * Tell your doctor about any erectile dysfunction (ED) medication you are taking. Some ED medications are not safe if you take certain heart medications. * Try to manage stress. Follow Up: It is important for you to keep your follow up appointments with your medical provider. Total Time Total Time Spent Total Time Spent (In Minutes): 32 Coding Level of Care Code 40191 INP/OBS DISCH >30 MIN Diagnoses Angina pectoris, unstable I20.0 CAD (coronary artery disease) I25.10 H/O heart artery stent Z95.5 Hypertension I10 Hypertension type: unspecified Gastroesophageal reflux disease, esophagitis presence not specified K21.9 Esophagitis presence: esophagitis presence not specified Anxiety disorder F41.9
--- NOTE | 2024-07-10 05:46 | Electrocardiogram Report ---
Test Reason : Blood Pressure : */* mmHG Vent. Rate : 91 BPM Atrial Rate : 91 BPM P-R Int : 162 ms QRS Dur : 74 ms QT Int : 388 ms P-R-T Axes : 57 65 65 degrees QTcB Int : 477 ms Normal sinus rhythm Anterolateral infarct (cited on or before 06-Jan-2014) Abnormal ECG When compared with ECG of 07-Jul-2024 05:18, No significant change was found Confirmed by Ronen Weinberg ([id number]) on 07/10/2024 5:45:58 AM Referred By: REFERRED SELF Confirmed By: Ronen Weinberg
--- NOTE | 2024-07-10 05:46 | Electrocardiogram Report ---
Test Reason : Blood Pressure : */* mmHG Vent. Rate : 75 BPM Atrial Rate : 75 BPM P-R Int : 172 ms QRS Dur : 80 ms QT Int : 412 ms P-R-T Axes : 61 74 68 degrees QTcB Int : 460 ms Normal sinus rhythm Anterolateral infarct (cited on or before 06-Jan-2014) Abnormal ECG When compared with ECG of 06-Jul-2024 15:32, No significant change Confirmed by Ronen Weinberg ([id number]) on 07/10/2024 5:45:46 AM Referred By: REFERRED SELF Confirmed By: Ronen Weinberg
== END 2024-07-07 13:47 | disposition home or self-care (01) ==
LOC: SUATTDRO → ED 03:01 → 2E 03:01 → SUATTDRO 06:38 → 2E 08:55
PROC: CLB.CCO (2024-07-06 14:00)